=== PATIENT | male | born 1945 | race American Indian/Alaskan Native ===

== ENCOUNTER 2023-11-13 15:07 | Inpatient (IN) | payer OTHER, SELFPAY ==
[2023-11-13] VITALS (34 sets, daily range): BP systolic 71–128; BP diastolic 46–90; BMI 22.9
[2023-11-13 08:28] LABS: % Basophils 0.8 % (0-2); % Eosinophils 4.1 % (0-6); % Immature Granulocytes 0.3 % (0-0.5); % Lymphocytes 26.9 % (20.5-51.1); % Monocytes 9.9 % (1.7-9.3); Absolute Basophils 0.1 10^3/uL (0-0.2); Absolute Eosinophils 0.3 10^3/uL (0-0.7); Absolute Monocytes 0.8 10^3/uL (0.1-0.6); Absolute Neutrophils 4.4 10^3/uL (1.4-6.5); Hematocrit 38.6 % (39.0-52.0); Hemoglobin 13.2 g/dL (13.0-18.0); Mean Corp Hgb Conc. 34.2 g/dL (33.0-37.0); Mean Corpuscular Hgb 30.8 pg (27.0-31.0); Mean Corpuscular Volume 90.2 fL (80.0-94.0); Mean Platelet Volume 9.9 fL (7.4-10.4); Nucleated Red Blood Cells % 0 % (-); Platelet Count 183 10^3/uL (130-400); Red Blood Cell Count 4.28 10^6/uL (4.70-6.10); Red Cell Dist. Width 12.5 % (11.5-14.5); White Blood Cell Count 7.6 10^3/uL (4.8-10.8)
--- NOTE | 2023-11-13 08:40 | ED.GENMED ---
History of Present Illness
<Vega Pedraza MD - Last Filed: 11/13/23 21:09>
General
Chief Complaint: Headache
Source: patient
Exam Limitations: none
Time Seen by Provider: 11/13/23 08:35
Nursing documentation reviewed up to this point in time: agreed with
History of Present Illness
History of Present Illness:
Patient who recently moved to [facility] from [place], with history of hypertension and diabetes, presents to ED secondary to sudden onset of posterior headache with dizziness, on approximately 1 hour after waking up this morning denies blurred
vision. Denies loss of sensation or weakness. Denies difficulty with speech. Denies difficulty with ambulation. Denies recent illness. Patient states that he was at his baseline health when he went to sleep last night. And when he woke up at
5:30 AM, patient had no complaints. Denies previous history of similar symptoms. Denies recent change in medications or diet. 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
ago. In addition, he has been told that he sometimes has 'skipped heart beats'. However, patient is not familiar with the term atrial fibrillation. Patient currently takes 81 mg aspirin daily.
<ELSIE Laura - Last Filed: >
Travel History
Have you had any contact with someone who has COVID-19?: No
Do you have any symptoms of coronavirus? Fever > 100 degrees, chills, cough, shortness of breath, sore throat, loss of taste or smell, muscle aches, or headache?: No
Review of Systems
<Vega Pedraza MD - Last Filed: 11/13/23 21:09>
Review of Systems
Allergies reviewed?: Yes
All Other Systems: ROS reviewed and negative except as documented in HPI and ROS
Constitutional: Reports no symptoms; Denies fever
EENT: Reports no symptoms
Respiratory: Reports no symptoms; Denies trouble breathing
Cardiac: Reports no symptoms; Denies chest pain, palpitations or syncope
ABD/GI: Reports no symptoms; Denies nausea
Musculoskeletal: Reports no symptoms
Skin: Reports no symptoms
Neurological: Reports dizzy and headache; Denies weakness
Phy Exam
<Vega ePdraza MD - Last Filed: 11/13/23 21:09>
Physical Exam
Physical Exam:
Physical Exam
General: no apparent distress, not acutely ill. afebrile.
Head: nc/at. eomi. perrla
Neck: supple. no meningeal signs.
Heart: irregularly irregular, tachycardic, no murmur. equal radial pulses.
Lungs: no acute respiratory distress. clear bilaterally
Abdomen: normal bowel sounds. not tender.
Neuro: alert and oriented. no focal neurological deficits
Skin: no rash
Psychiatric: well kept. interactive and cooperative
Extremities: no edema. no calf tenderness.
Course
<Vega Pedraza MD - Last Filed: 11/13/23 21:09>
Orders/Labs/Results
Orders:
Orders
11/13/23 07:59
Electrocardiogram (*1) Urgent
Reason for Study: Fatigue / Weakness
EKG- Treatment ONCE
11/13/23 08:12
Complete Blood Count/With Diff Urgent
Comprehensive Metabolic Panel Urgent
Free T4 Urgent
Magnesium Urgent
TSH Reflex To Free T4 Urgent
11/13/23 08:54
Add On- LAB Urgent
Tests Added?: TSH to reflex kiara T4, magnesium
11/13/23 08:55
CT Head W/o Iv Contrast Urgent
Comment:
Reason For Exam: headache w dizziness
11/13/23 08:56
0.9% Sodium Chloride 500 ml [Nss] 500 ml IV BOLUS
11/13/23 09:03
Troponin I Urgent
11/13/23 09:32
Diltiazem HCl [Cardizem] 5 mg IV NOW STA
11/13/23 10:02
0.9% Sodium Chloride 1000 ml [Nss] 1,000 ml IV BOLUS
Diltiazem HCl [Cardizem] 5 mg IV NOW STA
11/13/23 10:44
EKG [Electrocardiogram (*1)] Urgent
Reason for Study: Atrial Fibrillation
EKG- Treatment ONCE
11/13/23 13:12
Troponin I Urgent
11/13/23 14:01
CARDIOLOGY CONSULT Urgent
Consulting Provider: Gregg Min
Was physician already notified: Yes
Reason for consult: abnormal EKG and troponin
11/13/23 14:43
Echo 2D MMode Color/Doppler Routine
Reason for Study: New Afib, elevated troponin
11/13/23 14:44
Heparin Protocol- PTT Orders As Directed
PTT per Heparin protocol: -Obtain CBC and baseline PTT - if not already collected.
-Obtain PTT 6 hours from start of infusion. Then, every 6 hours until 2 consecutive
PTT's are therapeutic. Then, PTT Daily.
-With each rate change, obtain PTT every 6 hours until 2 consecutive PTT's are
therapeutic. Then, PTT Daily.
Notify MD As Directed
Notify physician if: PTT is greater than or equal to 200.
11/13/23 14:45
Heparin 51075 Units/250 ml 25,000 units in 250 ml IV PER PROTOCOL
Weight to be used for heparin protocol in kilograms (kg):: 68.2
Protocol:: Cardiac Tx/Acute Coronary
PTT Goal Range to be used:: PTT 73 to 111 seconds
Order type:: Initial
INITIAL Infusion Dose (UNITS/KG/hr) & then follow protocol:: 12 units/kg/hr
Infusion Dose in UNITS/hr & then follow protocol (UNITS/hr):: 800
INFUSION RATE in mL/hr & then follow protocol (mL/hr):: 8
PTT less than or equal to 64 seconds:: Increase rate by 200 units/hr (+ 2 mL/hr)
PTT 64.1 to 72.9 seconds:: Increase rate by 100 units/hr (+ 1 mL/hr)
PTT 73 to 111 seconds:: Target Range. No change in rate.
PTT 111.1 to 130.9 seconds:: Decrease rate by 100 units/hr (- 1 mL/hr)
PTT 131 to 199.9 seconds:: HOLD for 1 hr. Then decrease rate by 200 units/hr (- 2 mL/hr)
PTT greater than or equal to 200 seconds:: HOLD for 2 hrs & Notify Provider. Then decrease by 200 units/hr (-
2 mL/hr)
Lab follow-up:: Each change, PTT q6h until 2 consecutive are therapeutic. Then PTT
daily.
11/13/23 14:51
Admit/Transfer Patient As Directed
Co-Sign Provider:
Level of Care: Inpatient admission
Assign to:: Telemetry
Physician / Group: Kyaw
Diagnosis: A-fib, Elevated Troponin
Reason for Telemetry: Arrhythmia
Date to Stop Telemetry: 11/16/23
Time to Stop Telemetry: 11:00
Reason for Hospitalization: heparin drip, cardiac cath
Expected length of stay greater than two midnights?: Yes
ELOS- Estimated Length of Stay in days: 3
I certify the patient meets the requirements for IP care: Yes
11/13/23 14:54
Code Status As Directed
Resuscitation Status: Full Code
11/13/23 14:55
Aspirin Chewable [Low Strength Aspirin] 324 mg PO NOW STA
11/13/23 Dinner
2000 calorie (17 carb) Diabetic
At Your Request: Limited, Apprenticeship Representative Required
Does patient need a safe tray?: No
Flush (0.9% Sodium Chloride) [Flush (Nss)] See Dose Instructions IV PER PROTOCOL
11/13/23 15:07
Complete Blood Count/No Diff Urgent
Comment: Obtain baseline before beginning heparin infusion if not already collected
PTT Urgent
Comment: Obtain baseline before beginning heparin infusion if not already collected
11/13/23 18:03
Acetaminophen [Tylenol] 650 mg PO Q4HPRN PRN
Dextrose 50%-Water [Dextrose 50% Syringe] 12.5 grams IV [id number] PRN
Glucagon [GlucaGen] 1 mg IM PRN PRN
Insulin Aspart Corrective Low [Novolog Flexpen-Low Resistance] See Protocol SC AC
11/13/23 18:03
CARDIOLOGY CONSULT Routine
Consulting Provider: Gregg Min
Was physician already notified: Yes
Activity As Directed
Activity Level: Out of Bed-Early Mobility
With Assistance
Bedside Glucose Monitoring As Directed
Frequency: AC&HS
Additional Instructions:: Change to q6h if pt on TPN, tube feeding or not eating
I&O [Intake/ Output] As Directed
Frequency: q12h
Vital Signs As Directed
Frequency: Per unit guidelines
Weight As Directed
Frequency: Daily
11/13/23 19:52
Troponin I Q6H
11/14/23 01:00
Troponin I Q6H
11/14/23 Breakfast
NPO
Allow oral meds: Yes
Allow clear liquids: 4hrs prior to procedure
Comment: may have unrestricted clear liquid up to 4 hrs prior to scheduled procedure
Basic Metabolic Panel IN AM
Cardiovascular Evaluation IN AM
Complete Blood Count/No Diff IN AM
Hgba1c [Glycohemoglobin (HgbA1c)] IN AM
Magnesium IN AM
11/14/23 07:00
Troponin I Q6H
11/14/23 08:00
Aspirin Chewable [Low Strength Aspirin] 81 mg PO DAILY
Atorvastatin [Lipitor] 10 mg PO DAILY
Metoprolol Xl [Toprol Xl] 12.5 mg PO DAILY
Olmesartan Medoxomil [Benicar] 20 mg PO DAILY
11/15/23 06:00
Complete Blood Count/No Diff Q2D
Comment: Notify MD if platelet count is <130,000 or decreases by 50% from baseline
11/16/23 11:00
DC Protocol for Telemetry ONCE
11/17/23 06:00
Complete Blood Count/No Diff Q2D
Comment: Notify MD if platelet count is <130,000 or decreases by 50% from baseline
11/19/23 06:00
Complete Blood Count/No Diff Q2D
Comment: Notify MD if platelet count is <130,000 or decreases by 50% from baseline
11/21/23 06:00
Complete Blood Count/No Diff Q2D
Comment: Notify MD if platelet count is <130,000 or decreases by 50% from baseline
11/23/23 06:00
Complete Blood Count/No Diff Q2D
Comment: Notify MD if platelet count is <130,000 or decreases by 50% from baseline
11/25/23 06:00
Complete Blood Count/No Diff Q2D
Comment: Notify MD if platelet count is <130,000 or decreases by 50% from baseline
11/27/23 06:00
Complete Blood Count/No Diff Q2D
Comment: Notify MD if platelet count is <130,000 or decreases by 50% from baseline
11/29/23 06:00
Complete Blood Count/No Diff Q2D
Comment: Notify MD if platelet count is <130,000 or decreases by 50% from baseline
Abnormal Lab Results
11/13/23 11/13/23 11/13/23
08:12 08:49 13:12
RBC 4.28 L 10^6/uL
(4.70-6.10)
Hgb
Hct 38.6 L %
(39.0-52.0)
MCH
MPV
Absolute Monos (auto) 0.8 H 10^3/uL
(0.1-0.6)
Monocytes % 9.9 H %
(1.7-9.3)
Glucose 134 H mg/dl
(70-99)
Troponin I 2.050 H* D ng/ml
TSH (Reflex) 5.58 H uIU/ml
(0.47-4.68)
POC Glucose 133 H mg/dl
(70-99)
11/13/23
15:07
RBC 3.79 L 10^6/uL
(4.70-6.10)
Hgb 11.9 L g/dL
(13.0-18.0)
Hct 35.0 L %
(39.0-52.0)
MCH 31.4 H pg
(27.0-31.0)
MPV 10.9 H fL
(7.4-10.4)
Absolute Monos (auto)
Monocytes %
Glucose
Troponin I
TSH (Reflex)
POC Glucose
11/13/23 15:07
11/13/23 08:12
Vital Signs
Initial and Last Documented VS:
Initial Vital Signs
Temp Pulse Resp BP Pulse Ox
98.3 F 79 16 100/63 98
11/13/23 07:57 11/13/23 07:57 11/13/23 07:57 11/13/23 07:57 11/13/23 07:57
Last Documented Vital Signs
Temp Pulse Resp BP Pulse Ox
98.3 F 65 27 118/70 98
11/13/23 07:57 11/13/23 17:15 11/13/23 17:15 11/13/23 17:15 11/13/23 16:30
<ELSIE Laura - Last Filed: >
Orders/Labs/Results
Orders:
Orders
11/13/23 07:59
Electrocardiogram (*1) Urgent
Reason for Study: Fatigue / Weakness
EKG- Treatment ONCE
11/13/23 08:12
Complete Blood Count/With Diff Urgent
Comprehensive Metabolic Panel Urgent
Free T4 Urgent
Magnesium Urgent
TSH Reflex To Free T4 Urgent
11/13/23 08:54
Add On- LAB Urgent
Tests Added?: TSH to reflex kiara T4, magnesium
11/13/23 08:55
CT Head W/o Iv Contrast Urgent
Comment:
Reason For Exam: headache w dizziness
11/13/23 08:56
0.9% Sodium Chloride 500 ml [Nss] 500 ml IV BOLUS
11/13/23 09:03
Troponin I Urgent
11/13/23 09:32
Diltiazem HCl [Cardizem] 5 mg IV NOW STA
11/13/23 10:02
0.9% Sodium Chloride 1000 ml [Nss] 1,000 ml IV BOLUS
Diltiazem HCl [Cardizem] 5 mg IV NOW STA
11/13/23 10:44
EKG [Electrocardiogram (*1)] Urgent
Reason for Study: Atrial Fibrillation
EKG- Treatment ONCE
11/13/23 13:12
Troponin I Urgent
11/13/23 14:01
CARDIOLOGY CONSULT Urgent
Consulting Provider: Gregg Min
Was physician already notified: Yes
Reason for consult: abnormal EKG and troponin
11/13/23 14:43
Echo 2D MMode Color/Doppler Routine
Reason for Study: New Afib, elevated troponin
11/13/23 14:44
Heparin Protocol- PTT Orders As Directed
PTT per Heparin protocol: -Obtain CBC and baseline PTT - if not already collected.
-Obtain PTT 6 hours from start of infusion. Then, every 6 hours until 2 consecutive
PTT's are therapeutic. Then, PTT Daily.
-With each rate change, obtain PTT every 6 hours until 2 consecutive PTT's are
therapeutic. Then, PTT Daily.
Notify MD As Directed
Notify physician if: PTT is greater than or equal to 200.
11/13/23 14:45
Heparin 55976 Units/250 ml 25,000 units in 250 ml IV PER PROTOCOL
Weight to be used for heparin protocol in kilograms (kg):: 68.2
Protocol:: Cardiac Tx/Acute Coronary
PTT Goal Range to be used:: PTT 73 to 111 seconds
Order type:: Initial
INITIAL Infusion Dose (UNITS/KG/hr) & then follow protocol:: 12 units/kg/hr
Infusion Dose in UNITS/hr & then follow protocol (UNITS/hr):: 800
INFUSION RATE in mL/hr & then follow protocol (mL/hr):: 8
PTT less than or equal to 64 seconds:: Increase rate by 200 units/hr (+ 2 mL/hr)
PTT 64.1 to 72.9 seconds:: Increase rate by 100 units/hr (+ 1 mL/hr)
PTT 73 to 111 seconds:: Target Range. No change in rate.
PTT 111.1 to 130.9 seconds:: Decrease rate by 100 units/hr (- 1 mL/hr)
PTT 131 to 199.9 seconds:: HOLD for 1 hr. Then decrease rate by 200 units/hr (- 2 mL/hr)
PTT greater than or equal to 200 seconds:: HOLD for 2 hrs & Notify Provider. Then decrease by 200 units/hr (-
2 mL/hr)
Lab follow-up:: Each change, PTT q6h until 2 consecutive are therapeutic. Then PTT
daily.
11/13/23 14:51
Admit/Transfer Patient As Directed
Co-Sign Provider:
Level of Care: Inpatient admission
Assign to:: Telemetry
Physician / Group: Kyaw
Diagnosis: A-fib, Elevated Troponin
Reason for Telemetry: Arrhythmia
Date to Stop Telemetry: 11/16/23
Time to Stop Telemetry: 11:00
Reason for Hospitalization: heparin drip, cardiac cath
Expected length of stay greater than two midnights?: Yes
ELOS- Estimated Length of Stay in days: 3
I certify the patient meets the requirements for IP care: Yes
11/13/23 14:54
Code Status As Directed
Resuscitation Status: Full Code
11/13/23 14:55
Aspirin Chewable [Low Strength Aspirin] 324 mg PO NOW STA
11/13/23 Dinner
2000 calorie (17 carb) Diabetic
At Your Request: Limited, Apprenticeship Representative Required
Does patient need a safe tray?: No
Flush (0.9% Sodium Chloride) [Flush (Nss)] See Dose Instructions IV PER PROTOCOL
11/13/23 15:07
Complete Blood Count/No Diff Urgent
Comment: Obtain baseline before beginning heparin infusion if not already collected
PTT Urgent
Comment: Obtain baseline before beginning heparin infusion if not already collected
11/13/23 18:03
Acetaminophen [Tylenol] 650 mg PO Q4HPRN PRN
Dextrose 50%-Water [Dextrose 50% Syringe] 12.5 grams IV [id number] PRN
Glucagon [GlucaGen] 1 mg IM PRN PRN
Insulin Aspart Corrective Low [Novolog Flexpen-Low Resistance] See Protocol SC AC
11/13/23 18:03
CARDIOLOGY CONSULT Routine
Consulting Provider: Gregg Min
Was physician already notified: Yes
Activity As Directed
Activity Level: Out of Bed-Early Mobility
With Assistance
Bedside Glucose Monitoring As Directed
Frequency: AC&HS
Additional Instructions:: Change to q6h if pt on TPN, tube feeding or not eating
I&O [Intake/ Output] As Directed
Frequency: q12h
Vital Signs As Directed
Frequency: Per unit guidelines
Weight As Directed
Frequency: Daily
11/13/23 19:52
Troponin I Q6H
11/14/23 01:00
Troponin I Q6H
11/14/23 Breakfast
NPO
Allow oral meds: Yes
Allow clear liquids: 4hrs prior to procedure
Comment: may have unrestricted clear liquid up to 4 hrs prior to scheduled procedure
Basic Metabolic Panel IN AM
Cardiovascular Evaluation IN AM
Complete Blood Count/No Diff IN AM
Hgba1c [Glycohemoglobin (HgbA1c)] IN AM
Magnesium IN AM
11/14/23 07:00
Troponin I Q6H
11/14/23 08:00
Aspirin Chewable [Low Strength Aspirin] 81 mg PO DAILY
Atorvastatin [Lipitor] 10 mg PO DAILY
Metoprolol Xl [Toprol Xl] 12.5 mg PO DAILY
Olmesartan Medoxomil [Benicar] 20 mg PO DAILY
11/15/23 06:00
Complete Blood Count/No Diff Q2D
Comment: Notify MD if platelet count is <130,000 or decreases by 50% from baseline
11/16/23 11:00
DC Protocol for Telemetry ONCE
11/17/23 06:00
Complete Blood Count/No Diff Q2D
Comment: Notify MD if platelet count is <130,000 or decreases by 50% from baseline
11/19/23 06:00
Complete Blood Count/No Diff Q2D
Comment: Notify MD if platelet count is <130,000 or decreases by 50% from baseline
11/21/23 06:00
Complete Blood Count/No Diff Q2D
Comment: Notify MD if platelet count is <130,000 or decreases by 50% from baseline
11/23/23 06:00
Complete Blood Count/No Diff Q2D
Comment: Notify MD if platelet count is <130,000 or decreases by 50% from baseline
11/25/23 06:00
Complete Blood Count/No Diff Q2D
Comment: Notify MD if platelet count is <130,000 or decreases by 50% from baseline
11/27/23 06:00
Complete Blood Count/No Diff Q2D
Comment: Notify MD if platelet count is <130,000 or decreases by 50% from baseline
11/29/23 06:00
Complete Blood Count/No Diff Q2D
Comment: Notify MD if platelet count is <130,000 or decreases by 50% from baseline
Abnormal Lab Results
11/13/23 11/13/23 11/13/23
08:12 08:49 13:12
RBC 4.28 L 10^6/uL
(4.70-6.10)
Hgb
Hct 38.6 L %
(39.0-52.0)
MCH
MPV
Absolute Monos (auto) 0.8 H 10^3/uL
(0.1-0.6)
Monocytes % 9.9 H %
(1.7-9.3)
Glucose 134 H mg/dl
(70-99)
Troponin I 2.050 H* D ng/ml
TSH (Reflex) 5.58 H uIU/ml
(0.47-4.68)
POC Glucose 133 H mg/dl
(70-99)
11/13/23
15:07
RBC 3.79 L 10^6/uL
(4.70-6.10)
Hgb 11.9 L g/dL
(13.0-18.0)
Hct 35.0 L %
(39.0-52.0)
MCH 31.4 H pg
(27.0-31.0)
MPV 10.9 H fL
(7.4-10.4)
Absolute Monos (auto)
Monocytes %
Glucose
Troponin I
TSH (Reflex)
POC Glucose
11/13/23 15:07
11/13/23 08:12
Vital Signs
Initial and Last Documented VS:
Initial Vital Signs
Temp Pulse Resp BP Pulse Ox
98.3 F 79 16 100/63 98
11/13/23 07:57 11/13/23 07:57 11/13/23 07:57 11/13/23 07:57 11/13/23 07:57
Last Documented Vital Signs
Temp Pulse Resp BP Pulse Ox
98.3 F 65 27 118/70 98
11/13/23 07:57 11/13/23 17:15 11/13/23 17:15 11/13/23 17:15 11/13/23 16:30
<Vega Pedraza MD - Last Filed: 11/13/23 21:09>
MDM/Problems Addressed
MDM/Problems Addressed:
Pt presents hypotensive with rapid HR. Pt given IVF bolus followed by Cardizem 5mg x 2 given, with spontaneous conversion to NSR, confirmed by repeat EKG. Discussed with Dr.DL Min (cardiology). Recommends repeat trop. Will come and evaluate the
patient.
Repeat trop: 2.05. Discussed with (cardiology), requesting hospitalist admission for further evaluation and treatment.
Critical care statement: A total of 40 minutes of critical care time was provided for this patient. This includes management of unstable vital signs, evaluation of the patient at bedside, reviewing the patient's pertinent medical records, discussion
with consultants, review of old EKGs and review of pertinent medical records. This time with separate from time utilized to perform the aforementioned documented procedures
<Vega Pedraza MD - Last Filed: 11/13/23 21:09>
*EKG
Interpreted by ED Provider?: Yes
EKG Intrepretation Date: 11/13/23
Heart Rate: 147
Rate: tachycardiac
Rhythm: a-fib
Pepin: left axis deviation
Interval: normal interval
QRS Pattern: normal QRS
ED Attending Note
<ELSIE Laura - Last Filed: >
-
Portions of this chart may have been created with voice recognition software.� Occasional wrong word or��sound alike� substitutions may have occurred due to the inherent limitations of voice recognition software.
Discharge Plan
Departure
Patient Disposition: Admit
Date of Disposition: 11/13/23
Time of Disposition: 14:15
Admit to: IVU
Presentation/result/management discussed w/ accepting MD/DO: Hospitalist
Discharge Problem:
Atrial fibrillation, rapid, Abnormal EKG, Abnormal cardiac enzyme level
Interventions
Interventions:
*Risk Screen - Suicide Last Done: 11/13/23 09:36
*General Assessment Last Done: 11/13/23 09:36
ED- Fall Risk Assessment Last Done: 11/13/23 09:38
*ED COVID-19 Vaccine History Last Done: 11/13/23 07:57
ED- Neurological Assessment Last Done: 11/13/23 09:38
[2023-11-13 08:42] LABS: ALT (SGPT) 14 U/L (0-50); AST (SGOT) 24 U/L (17-59); Albumin 4.1 g/dl (3.5-5.0); Alkaline Phosphatase 64 U/L (38-126); Blood Urea Nitrogen 18 mg/dl (9-20); Carbon Dioxide 28 mmol/L (22-30); Chloride 103 mmol/L (98-107); Estimated Creatinine Clearance 61 ml/min; Glucose 134 mg/dl (70-99); Potassium 4.6 mmol/L (3.5-5.1); Sodium 136 mmol/L (135-145); Total Bilirubin 1.1 mg/dl (0.2-1.3); Total Protein 7.2 g/dl (6.3-8.2); eGFR > 60.00
[2023-11-13 08:50] LABS: Glucose - Point of Care 133 mg/dl (70-99)
[2023-11-13] MEDS: NSS 500 IV (09:04)
[2023-11-13 09:19] LABS: Magnesium 2.1 mg/dl (1.6-2.3)
[2023-11-13 09:38] LABS: Troponin I 0.022 ng/ml
[2023-11-13] MEDS: CARDIZEM 5 MG IV ×2 (09:54→10:04)
[2023-11-13] MEDS: NSS 1000 IV (10:05)
[2023-11-13 10:19] LABS: TSH Reflex To Free T4 5.58 uIU/ml (0.47-4.68)
[2023-11-13 10:55] LABS: Free T4 1.15 ng/dl (0.78-2.19)
--- NOTE | 2023-11-13 14:24 | PHANOTE ---
med rec dima-patient has his own meds from [place] with him
--- NOTE | 2023-11-13 14:31 | CON.CAR ---
Addendum entered and electronically signed by Gregg Min MD 11/13/23 16:03:
Patient is a 78-year-old man recently from [place], has hypertension, diabetes and presented with headache and dizziness upon awakening this morning, found to be in atrial fibrillation with rapid ventricular response and converted to sinus rhythm
after administration of IV diltiazem.
PMH: Hypertension, diabetes, hypercholesterolemia
Allergies none
Prescription medications:
ECG #1: Atrial fibrillation rapid ventricular response left anterior fascicular block, LVH, lateral ischemia/injury
ECG #2: Sinus rhythm, left anterior fascicular block, inferolateral T wave inversions, LVH, T wave inversions have replaced lateral ST segment depression
Hemoglobin 13.2, glucose 134 CMP normal, troponin 2.050, had been 0.022, free T4 is normal, TSH 5.[address] mild atrophy
Chest x-ray: Pending
Impression:
Presented with headache, dizziness
Paroxysmal atrial fibrillation w/ RVR, converted to normal sinus rhythm with diltiazem
Elevated troponin
NSVT
HTN
DM2
HLD
Plan:
He presents with headache but upon presentation has paroxysmal atrial fibrillation which broke with IV diltiazem. Subsequent to this he has had run of nonsustained ventricular tachycardia/AIVR, and his troponin has risen to 2. He had EKG
depression laterally with his initial electrocardiogram and now has T wave inversions.
Based on this, he presumably has significant underlying obstructive CAD. In my opinion, best strategy is to anticoagulate with heparin, administer beta-sweta, treat with aspirin, and refer to cardiac catheterization. Will also check
echocardiogram.
Will need to uptitrate atorvastatin.
Management of diabetes per primary service.
Original Note:
Consultation
Consultation Request
Date/Time Consultation Requested: 11/13/2023
Date/Time Consultation Performed: 11/13/2023
Requesting Provider: Dr. Pedraza
Performing Provider: Dr. JOSIANE Min
Reason for Consultation: Elevated trop, new Afib
Medical History
-
History of Present Illness:
HPI: Patient is a 78 year old male with PMH of hypertension, hyperlipidemia, and DM2 who [facility] of [facility] and dizziness. He has been in his normal state of health, but shortly after he woke up this morning, he started to
feel off balance and noticed a headache which is atypical for him. He recently moved from [place] and is living w/ family. While in [place], he followed w/ cardiology, however denies history of coronary disease or atrial fibrillation. He reportedly has
been told that he has occasional 'skipped beats,' but further details are unclear. He has not yet established cardiology care locally. On arrival to ER, he was noted to be in rapid atrial fibrillation w/ associated hypotension. He spontaneously
converted to SR after being given a bolus of IV cardizem. He remains in SR currently, however on review of telemetry did have a 12 beat run of NSVT. With this, he was asymptomatic. Labwork returned with initial troponin of 0.022, which trended up to
2.05 on repeat. He remains chest pain free currently and has no acute complaints. Head CT was without abnormality. Cardiology consulted for evaluation.
PMH:
HTN
DM2
HLD
Past Medical History
Past Medical History: Other (In HPI)
Social History
Alcohol: None
Drug: None
Personal:
Living: With Family
Employment: Retired
Family History
Family History: Reviewed & Not Pertinent
Allergies / Home Medications
Allergy/AdvReac Type Severity Reaction Status Date / Time
No Known Allergies Allergy Verified 11/13/23 07:59
�Medication �Instructions �Recorded �Confirmed �Type
aspirin 81 mg tablet,delayed 75 mg PO DAILY 11/13/23 11/13/23 History
release
atorvastatin 10 mg tablet 10 mg PO DAILY 11/13/23 11/13/23 History
levocarnitine 500 mg tablet 500 mg PO DAILY 11/13/23 11/13/23 History
metformin 500 mg tablet 125 mg PO BID 11/13/23 11/13/23 History
olmesartan 20 mg tablet 20 mg PO DAILY 11/13/23 11/13/23 History
Review of Systems
-
History Source: Patient and Family
All other systems: Negative unless noted
Physical Exam
Vital Signs
Temp Pulse Resp BP Pulse Ox
98.3 F 57 18 105/62 94
11/13/23 07:57 11/13/23 12:30 11/13/23 12:30 11/13/23 12:30 11/13/23 11:36
Lab Results
11/13/23 08:12
11/13/23 08:12
Troponin I 2.050 ng/ml H* D 11/13/23 13:12
Physical Exam
General: Well Developed, Well Nourished and No Apparent Distress
HEENT: Normocephalic, Anicteric and Moist Mucous Membranes
Respiratory: Clear and Non Labored Respirations
Cardiac: S1/S2 and Regular Rhythm
Musculoskeletal: No Clubbing, No Cyanosis and No Edema
Neuro: AO x 3 and Nonfocal/Grossly Intact
Psych: Calm
Impression / Plan
-
Calender Tender: None prior to admission, initially seen by Dr. JOSIANE Min
Impression:
Presented with headache, dizziness
Paroxysmal atrial fibrillation w/ RVR
Elevated troponin
NSVT
HTN
DM2
HLD
Echo 11/13/2023: Study pending
Plan:
-Presented w/ headache, dizziness. In rapid afib on arrival which reportedly is a new diagnosis.
-Spontaneously converted to SR after IV cardizem given in ER. Remains in SR on review of telemetry. HR stable
-Elevated troponin noted, trending up to 2.05. Chest pain free. Continue to trend to peak.
-Initial EKG rapid Afib, w/ repeat EKG SR with T wave inversions laterally.
-Check echo.
-Start IV heparin.
-On aspirin 75mg daily. Will load w/ aspirin and continue aspirin 81mg daily.
-12 beat run of NSVT noted on telemetry. Continue to follow. Will try starting low dose BB, however will need to monitor BP closely.
-With new afib, elevated troponin, and NSVT, will need LHC. Plan for cath in AM. NPO after midnight.
-Was hypotensive initially w/ BP 70s/50s on arrival to ER. Improved now that he is in SR, with most recent BP 105/62. Hold olmesartan for now.
-Continue lipitor 10mg daily. Check CVE in AM.
-Check Hgb A1c. Continue metformin.
-Head CT without acute abnormality. Headache has resolved.
HPI: Patient is a 78 year old male with PMH of hypertension, hyperlipidemia, and DM2 who [facility] evaluation of headache and dizziness. He has been in his normal state of health, but shortly after he woke up this morning, he started to
feel off balance and noticed a headache which is atypical for him. He recently moved from [place] and is living w/ family. While in [place], he followed w/ cardiology, however denies history of coronary disease or atrial fibrillation. He reportedly has
been told that he has occasional 'skipped beats,' but further details are unclear. He has not yet established cardiology care locally. On arrival to ER, he was noted to be in rapid atrial fibrillation w/ associated hypotension. He spontaneously
converted to SR after being given a bolus of IV cardizem. He remains in SR currently, however on review of telemetry did have a 12 beat run of NSVT. With this, he was asymptomatic. Labwork returned with initial troponin of 0.022, which trended up to
2.05 on repeat. He remains chest pain free currently and has no acute complaints. Head CT was without abnormality. Cardiology consulted for evaluation.
Data Reviewed
-
EKG: Tracing Personally Visualized and interpreted
CT Scan: Report Reviewed by me
Labs: Labs Reviewed by me
--- NOTE | 2023-11-13 15:00 | HPS.HSE ---
Addendum entered and electronically signed by Miguel Ángel Card MD 11/13/23 16:29:
I saw and examined the patient.
The FOOD PORTER or PA's note was reviewed and I agree with the note.
Comment: 38-year-old male with past medical history of hypertension, hyperlipidemia, diabetes coming in for generalized weakness, body aches and headache. Head CT unremarkable, headache resolved upon evaluation. Found to have A-fib with RVR,
received IV Cardizem with spontaneous conversion back to sinus rhythm. Also noted to have T wave inversions, replacing lateral ST segment depression along with troponin of 2. Due to nonspecific symptoms as well as elevated troponin and arrhythmia,
patient will plan for cardiac cath tomorrow. Follow-up echo, start heparin drip, aspirin 81 mg. Heart rate under control. Hypertensive in the ED, holding olmesartan for now, will monitor for initiating AV humberto blockade. Continue statin. Lipid
and hemoglobin A1c panel. Hold metformin, sliding scale.
Original Note:
Family Physician
-
Family Physician: * NONE
Chief Complaint
-
Lightheadedness
History of Present Illness
This is a 78 year old male with past medical history of hypertension, hyperlipidemia and diabetes who presents to the emergency department with generalized weakness/body aches and headache. Additional history obtained by patient's family. Family
reports the patient was in his usual state of health yesterday. Today upon waking he was noted to feel unwell thus prompting them to bring him to the emergency department. Upon arrival patient was found to have atrial fibrillation with rapid
ventricular response. Patient received IV Cardizem in the emergency department and spontaneous converted back to sinus rhythm. Family reports patient feels back at his baseline after receiving Cardizem and returning to regular heart rhythm. There
is no prior history atrial fibrillation or coronary artery disease.
Medical History
Past Medical History
Past Medical History: Reports Other
Additional Past Medical History:
Essential Hypertension
Hyperlipidemia
Diabetes Mellitus
Past Surgical History: Reports Other
Additional Past Surgical History:
Spine Surgery
Social History
Tobacco: Non-smoker
Alcohol: None
Living: With Family
Family History
Family History: Not pertinent
Allergies / Home Medications
Allergies reflects when Allergies were last updated in [facility].
Home Medications with original date entered in [facility]
Allergy/Medication List:
Allergies
Allergy/AdvReac Type Severity Reaction Status Date / Time
No Known Allergies Allergy Verified 11/13/23 07:59
Home Medications
aspirin 81 mg tablet,delayed release 75 mg PO DAILY 11/13/23
atorvastatin 10 mg tablet 10 mg PO DAILY 11/13/23
levocarnitine 500 mg tablet 500 mg PO DAILY 11/13/23
metformin 500 mg tablet 125 mg PO BID 11/13/23
olmesartan 20 mg tablet 20 mg PO DAILY 11/13/23
Review of Systems
-
Unable to obtain full review of systems at this time due to: Language Barrier
A 12 point ROS was completed and negative except as noted: No
Physical Exam
Vital Signs
Vital Signs
Temp Pulse Resp BP Pulse Ox
98.3 F 57 18 105/62 94
11/13/23 07:57 11/13/23 12:30 11/13/23 12:30 11/13/23 12:30 11/13/23 11:36
Physical Exam
General: Well Developed, Well Nourished and No Apparent Distress
HEENT: Anicteric and Moist mucous membranes
Respiratory: Clear and Non Labored Respirations
Cardiac: S1/S2 and Regular Rhythm; No Murmur
GI: Soft and Non Tender
Rectal: Deferred by Provider
Musculoskeletal: No Clubbing, No Cyanosis and No Edema
Skin: Warm and Dry
Neuro: Awake, Alert and Nonfocal/grossly intact
Psych: Calm
Laboratory Results
-
11/13/23 08:12
Laboratory Results
Total Bilirubin 1.1 mg/dl (0.2-1.3) 11/13/23 08:12
AST 24 U/L (17-59) 11/13/23 08:12
ALT 14 U/L (0-50) 11/13/23 08:12
Alkaline Phosphatase 64 U/L (38-126) 11/13/23 08:12
Troponin I 2.050 ng/ml H* D 11/13/23 13:12
Data Reviewed
-
Medical Tests (Nuc Med, Echo, EKG etc): Report Reviewed by me (ECGs reviewed )
Lab Data: Labs Reviewed by me
Impression/Plan
-
Paroxysmal Atrial Fibrillation with Rapid Ventricular Response, new diagnosis
Non-Sustained Ventricular Tachycardia
Elevated Troponin
-Patient spontaneously converted to sinus rhythm at IV Cardizem given in the ED
-Consult Cardiology
-Continue heparin drip
-Continue Toprol XL
-NPO after midnight for cardiac cath in AM
Essential Hypertension
-Continue olmesartan with hold parameters
Hyperlipidemia
-Check Lipid Panel
-Continue Lipitor
Diabetes Mellitus, Type II
-Check HgbA1c
-Hold metformin
-Monitor sugars and continue coverage insulin
DVT proph: Heparin Drip
Code Status: Full Code
[2023-11-13] MEDS: LOW STRENGTH ASPIRIN 324 MG PO (15:19)
[2023-11-13] MEDS: HEPARIN 25000 UNITS/250 ML IV (15:22)
[2023-11-13 16:11] LABS: Hemoglobin 11.9 g/dL (13.0-18.0); Mean Corpuscular Hgb 31.4 pg (27.0-31.0); Mean Corpuscular Volume 92.3 fL (80.0-94.0); Mean Platelet Volume 10.9 fL (7.4-10.4); Platelet Count 172 10^3/uL (130-400); Red Blood Cell Count 3.79 10^6/uL (4.70-6.10); Red Cell Dist. Width 12.5 % (11.5-14.5); White Blood Cell Count 7.6 10^3/uL (4.8-10.8)
[2023-11-13 18:26] LABS: Glucose - Point of Care 255 mg/dl (70-99)
[2023-11-13] MEDS: NOVOLOG FLEXPEN-LOW RESISTANCE 3 UNITS SC (18:31)
[2023-11-13 23:39] LABS: APTT 104.7 Sec (23.4-35.0)
[2023-11-14] VITALS (11 sets, daily range): BP systolic 109–143; BP diastolic 56–81; BMI 22.9
[2023-11-14 05:27] LABS: APTT 64.1 Sec (23.4-35.0)
[2023-11-14 05:33] LABS: Hematocrit 34.4 % (39.0-52.0); Hemoglobin 11.8 g/dL (13.0-18.0); Mean Corp Hgb Conc. 34.3 g/dL (33.0-37.0); Mean Corpuscular Hgb 31.1 pg (27.0-31.0); Mean Corpuscular Volume 90.8 fL (80.0-94.0); Mean Platelet Volume 10.1 fL (7.4-10.4); Platelet Count 171 10^3/uL (130-400); Red Blood Cell Count 3.79 10^6/uL (4.70-6.10); Red Cell Dist. Width 12.4 % (11.5-14.5); White Blood Cell Count 9.2 10^3/uL (4.8-10.8)
[2023-11-14 05:46] LABS: Blood Urea Nitrogen 20 mg/dl (9-20); Calcium 8.7 mg/dl (8.4-10.2); Carbon Dioxide 26 mmol/L (22-30); Chloride 109 mmol/L (98-107); Estimated Creatinine Clearance 87 ml/min; Glucose 103 mg/dl (70-99); HDL Cholesterol 53 mg/dl; LDL Cholesterol, Calculated 84 mg/dl; Magnesium 2.1 mg/dl (1.6-2.3); Potassium 4.3 mmol/L (3.5-5.1); Sodium 141 mmol/L (135-145); Total Cholesterol 152 mg/dl (50-199); Triglyceride 77 mg/dl (10-149); Very Low Density Lipoprotein 15 mg/dl (0-30); eGFR > 60.00
[2023-11-14 08:07] LABS: Glucose - Point of Care 92 mg/dl (70-99)
[2023-11-14] MEDS: NOVOLOG FLEXPEN-LOW RESISTANCE SC ×3 (08:20→18:20)
[2023-11-14 08:56] LABS: Glycohemoglobin (HgbA1c) 6.7 % (4.0-5.6)
[2023-11-14] MEDS: TOPROL XL 12.5 MG PO (09:15)
[2023-11-14] MEDS: BENICAR 20 MG PO (09:15)
[2023-11-14] MEDS: LOW STRENGTH ASPIRIN 81 MG PO (09:15)
[2023-11-14] MEDS: LIPITOR 10 MG PO (09:15)
--- NOTE | 2023-11-14 12:18 | CM ---
CM following re: discharge planning.
Reviewed pt's chart, met with pt. Pt's spouse and pt's son at bedside.
Pt is a 78 year old male admitted with primary dx of Paroxysmal Atrial Fibrillation with Rapid Ventricular Response.
Per son, pt was born and grew up in [place], green card juares for more than 20 years, speaks only Tamil language. Pt lives with spouse and a son in a 2SH, 3 steps to enter, has 3 supportive sons. 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 No DME,
VN or SNF history.
Pt has not use any pharmacy in the past. Pt's son will give all insurance information to [facility] in [place]. Pharmacist requested a script for [facility] to check the newsome. to send a script.
PCP: Pt son stated that pt lives in an out [facility] for 20 years, did not have PCP in [facility] and now pt decided to stay in [facility] and pt's son will get a new PCP.
D/C plan: home with anticipated no needs. Son to transport at discharge.
CM will follow with discharge plan updates as hospitalization progresses
[2023-11-14 12:42] LABS: APTT 50.1 Sec (23.4-35.0)
[2023-11-14 13:41] LABS: Glucose - Point of Care 91 mg/dl (70-99)
--- NOTE | 2023-11-14 14:14 | W.PN.HOSP.TC ---
Today's Communication/Plan
-
Change statin to 40mg qhs
await LHC
Cont hep ggt, eliquis on dc
Cont Toprol, already on ARB
ASA
Assessment / Plan
Assessment / Plan
Physical Exam
General: Well Developed, Well Nourished and No Apparent Distress
HEENT: Anicteric and Moist mucous membranes
Respiratory: Clear and Non Labored Respirations
Cardiac: S1/S2 and Regular Rhythm; No Murmur
GI: Soft and Non Tender
Rectal: Deferred by Provider
Musculoskeletal: No Clubbing, No Cyanosis and No Edema
Skin: Warm and Dry
Neuro: Awake, Alert and Nonfocal/grossly intact
Psych: Calm
Non-Sustained Ventricular Tachycardia
Elevated Troponin
-Patient spontaneously converted to sinus rhythm at IV Cardizem given in the ED
-Continue heparin drip, Eliquis on dc
-Continue Toprol XL
-Awaiting LHC
-Statin titration
-ASA
Paroxysmal atrial fibrillation w/ RVR, converted to normal sinus rhythm with diltiazem
-Hep ggt
-Eliquis dosing on DC
-Toprol
Essential Hypertension
-Continue olmesartan with hold parameters
-Toprol
Hyperlipidemia
-Titrate Statin
Diabetes Mellitus, Type II
-Check HgbA1c - 6.7
-Hold metformin
-Monitor sugars and continue coverage insulin
DVT proph: Heparin Drip
Code Status: Full Code
Total time spent on today's encounter was 50 minutes which included time spent in counseling the patient/family regarding diagnosis and treatment plan as listed above, goals of care, and symptom management. Case was discussed with nursing staff,
specialists, and care coordinators/case management. All labs and imaging personally reviewed by me. Remainder the time spent in detailed review of previous records, lab data, imaging, and other medical provider documentation.
Anticipated Discharge: 24 - 48 hours
Subjective/Interval History
-
Date of Service: November 14, 2023
No acute events
Objective Data
-
Labs:
Laboratory Results
11/14/23 11/14/23 11/14/23
05:09 12:04 19:00
WBC 9.2
Hgb 11.8 L
Hct 34.4 L
Plt Count 171
APTT 64.1 H 50.1 H Pending
Sodium 141
Potassium 4.3
Chloride 109 H
Carbon Dioxide 26
BUN 20
Creatinine 0.7
Glucose 103 H
Calcium 8.7
Vital Signs:
Vital Signs
Temp Pulse Resp BP Pulse Ox
98.3 F 62 26 109/81 99
11/13/23 07:57 11/14/23 11:30 11/14/23 11:30 11/14/23 11:00 11/14/23 11:30
Review of Systems
-
History Source: Patient
All other systems: Not reviewed unless documented
Data Reviewed
-
CT Scan: Image personally visualized and interpreted and Report Reviewed by me
Labs: Labs Reviewed by me
[2023-11-14 17:48] LABS: Glucose - Point of Care 97 mg/dl (70-99)
--- NOTE | 2023-11-14 19:10 | PTCARENOTE ---
Pt sent to cath lab tech for card cath but cath was canceled. Neuro w/u ordered.
[2023-11-14] MEDS: HEPARIN 25000 UNITS/250 ML IV (21:35)
[2023-11-14 22:09] LABS: Glucose - Point of Care 109 mg/dl (70-99)
[2023-11-15] VITALS (12 sets, daily range): BP systolic 99–137; BP diastolic 53–73; BMI 22.4
[2023-11-15 03:13] LABS: Hematocrit 34.9 % (39.0-52.0); Hemoglobin 12.6 g/dL (13.0-18.0); Mean Corp Hgb Conc. 36.1 g/dL (33.0-37.0); Mean Corpuscular Hgb 31.5 pg (27.0-31.0); Mean Corpuscular Volume 87.3 fL (80.0-94.0); Mean Platelet Volume 9.8 fL (7.4-10.4); Platelet Count 165 10^3/uL (130-400); Red Cell Dist. Width 12.3 % (11.5-14.5); White Blood Cell Count 7.9 10^3/uL (4.8-10.8)
[2023-11-15 03:51] LABS: APTT > 200 Sec (23.4-35.0)
[2023-11-15 04:24] LABS: ALT (SGPT) 15 U/L (0-50); AST (SGOT) 47 U/L (17-59); Albumin 3.5 g/dl (3.5-5.0); Alkaline Phosphatase 75 U/L (38-126); Blood Urea Nitrogen 19 mg/dl (9-20); Calcium 8.8 mg/dl (8.4-10.2); Carbon Dioxide 25 mmol/L (22-30); Chloride 107 mmol/L (98-107); Estimated Creatinine Clearance 101 ml/min; Glucose 88 mg/dl (70-99); Magnesium 2.1 mg/dl (1.6-2.3); Potassium 4.1 mmol/L (3.5-5.1); Sodium 137 mmol/L (135-145); Total Bilirubin 1.1 mg/dl (0.2-1.3); Total Protein 6.7 g/dl (6.3-8.2); eGFR > 60.00
--- NOTE | 2023-11-15 07:09 | CON.NEURO4 ---
Addendum entered and electronically signed by Uriel Bustamante MD 11/15/23 12:35:
MRI brain images and report reviewed, empty sella is seen which is no clinical concern for significance. 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
I do not feel that there are any neurologic symptoms arising from this stenosis of the right subclavian artery no history to suggest that he has a subclavian steal syndrome. As such not going to recommend carotid ultrasound.
No findings of infarct on the brain MRI. I do feel that the symptoms of his headache and vision changes are fairly likely to have been spurred on by the rapid ventricular response of atrial fibrillation, less likely a TIA given there were no clear
focal symptoms of brain ischemia and TIAs are usually painless.
Can continue with the current plan for cardiac catheterization along with continuing heparin and antiplatelet medications
Original Note:
Consultation - Neurology 4
-
CONSULTING PHYSICIAN: Elbert Bustamante
REFERRING PHYSICIAN: Cardiology
DICTATED BY: Elbert Bustamante
DATE/TIME OF REQUEST: 11/15/23
DATE/TIME OF CONSULTATION: 11/15/23
Reason for Consultation: Headache, vision change, new atrial fibrillation
History of Present Illness:
The patient is a 78-year-old right-handed man with a past ministry of hypertension diabetes and hyperlipidemia who presented to hospital with generalized weakness, headache, vision changes. He was found to be in new atrial fibrillation with rapid
ventricular response and he was placed on IV Cardizem in the emergency department with conversion back to sinus rhythm. Review of EKG showed inferolateral T wave inversions which replaced lateral ST segment depression, troponin peaked at 2.050.
There is suspicion on the part of cardiology for significant underlying obstructive coronary artery disease, and he was placed on heparin and aspirin. CT head noncontrast did not show any acute changes no infarct or hemorrhage.
Patient reports that he seemed to have sudden onset of posterior region dull headache along with a vision change in both eyes one time in the past couple of days that was short and then recurred leading him to present to ED. He noticed that the
symptoms resolved after being placed on IV cardizem and heart rates improved. He and his family did not note any slurred speech or expressive speech difficulty, unilateral paresthesia or weakness, vertigo, or losing consciousness. Denies any chest
pain or dyspnea at this time. He feels well now, denies any current abnormal symptoms with vision returned to normal, no headache, normal speech and strength. No unusual headaches otherwise and no history of frequent headaches at baseline, no
recent head or neck trauma.
Past Medical History: Hypertension, hyperlipidemia, diabetes
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
Family History: Non-contributory
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
Allergies: No known drug allergies
Review of Symptoms:
Patient denies any fever, headache, chest pain, shortness of breath, GI or symptoms.
Physical Exam:
Well-appearing middle elderly age man no signs of trauma to the head or neck eyes are clear oropharynx is clear neck supple no masses full range of motion, heart rate regular no murmur appreciated, breathing unlabored no wheezing abdomen soft
nontender no lower extremity edema or rashes seen
Neurologic Examination:
The patient is awake, alert and oriented x 3. He is able to follow commands and answer questions appropriately. There is no aphasia or dysarthria. On cranial nerve assessment, pupils are 3 mm bilateral, round and reactive to light and
accommodation. Visual hassan are full. Extraocular movements are intact. Facial sensations are intact and bilaterally symmetrical, there is no facial asymmetry. Hearing is intact bilaterally to normal conversation volume. Tongue palate and uvula
are midline. Sternocleidomastoid strengths are full bilaterally. Motor strengths are 5/5 bilateral upper and lower extremities on medical research [place] scale. There is no drift or involuntary movement noted. Deep tendon reflexes are 2+ bilateral
upper and lower extremities and Babinski is absent bilaterally. Intact to light touch in upper and lower extremities which is symmetric. Coordination is intact by finger to nose bilaterally.
Neuro Imaging: CT head non contrast unremarkable, no acute infarct, masses, or hemorrhage
Impressions
1. Onset of posterior headache associated with bilateral vision changes, symptoms now resolved with normal neurologic exam. Suspect symptoms were due to atrial fibrillation and RVR, minor stroke would be a consideration, TIA is possible but I
feel less likely given the clinical context of atrial fibrillation with RVR. No extreme elevation in blood pressures would make PRES unlikely. No history of migraine type or headache disorder at baseline.
2. Presented in atrial fibrillation with RVR with heart rates improved now
3. There is suspicion for underlying obstructive coronary artery disease
4. Hypertension, hyperlipidemia, diabetes treated with oral medications
Recommendations:
1. Okay to continue current antithrombotics with heparin infusion and aspirin
2. Check MRI of the brain without contrast, MRA of the head and neck
3. Discussed signs and symptoms of stroke
4. Continue cardiac telemetry
5. Planned for cardiac catheterization. I suspect that MRI will not have any findings that would prohibit this or necessitate any delay for the procedure.
Will follow
Discussed patient care with: Patient and his son
NIH Stroke Score
Subsequent NIH Scale
Date of Subsequent NIH Scale: 11/15/23
Time of Subsequent NIH Scale: 07:11
NIH Stroke Score
Level of Consciousness: 0 - Alert
LOC Questions: 0-Answers both correctly
LOC Commands: 0-Performs both correctly
Best Horizontal Gaze: 0-Normal
Visual Hassan: 0=Normal, no visual loss
Facial Palsy: 0=Normal, symmetrical
Motor - Right Arm: 0=No drift 10 seconds
Motor - Left Arm: 0=No drift 10 seconds
Motor - Right Le-No drift 5 seconds
Motor - Left Le-No drift 5 seconds
Limb Ataxia: 0-Absent
Sensation: 0-Normal
Best Language: 0-No aphasia
Dysarthria: 0-Normal
Extinction and Inattention: 0-No abnormality
Total Score:: 0
Home Medications
-
Home Medications
aspirin 81 mg tablet,delayed release 75 mg PO DAILY Blood Clot Prevention/Tx 11/13/23
atorvastatin 10 mg tablet 10 mg PO DAILY High Cholesterol 11/13/23
levocarnitine 500 mg tablet 500 mg PO DAILY Supplement 11/13/23
metformin 500 mg tablet 125 mg PO BID Diabetes 11/13/23
olmesartan 20 mg tablet 20 mg PO DAILY Blood Pressure 11/13/23
Allergies
-
Allergies
Allergy/AdvReac Type Severity Reaction Status Date / Time
No Known Allergies Allergy Verified 11/13/23 07:59
Vital Signs / Labs
-
Vital Signs and Labs:
Temp Pulse Resp BP Pulse Ox
98.2 F 51 18 126/73 97
11/15/23 07:08 11/15/23 06:00 11/15/23 07:08 11/15/23 02:57 11/15/23 07:08
11/15/23 03:03
11/15/23 03:03
11/14/23 11/14/23 11/14/23
05:09 12:04 19:51
RBC
Hgb
Hct
MCH
APTT 50.1 H 106.0 H
Creatinine
Hemoglobin A1c 6.7 H
POC Glucose
11/14/23 11/15/23
22:08 03:03
RBC 4.00 L
Hgb 12.6 L
Hct 34.9 L
MCH 31.5 H
APTT > 200 H*
Creatinine 0.6 L
Hemoglobin A1c
POC Glucose 109 H
[2023-11-15 07:16] LABS: Glucose - Point of Care 80 mg/dl (70-99)
[2023-11-15] MEDS: NOVOLOG FLEXPEN-LOW RESISTANCE SC ×3 (07:23→18:11)
[2023-11-15] MEDS: LIPITOR 40 MG PO (08:03)
[2023-11-15] MEDS: FLUSH (NSS) 1 FLUSH IV ×2 (08:03→16:08)
[2023-11-15] MEDS: TOPROL XL 12.5 MG PO (08:03)
[2023-11-15] MEDS: BENICAR 20 MG PO (08:03)
[2023-11-15] MEDS: LOW STRENGTH ASPIRIN 81 MG PO (08:03)
--- NOTE | 2023-11-15 08:11 | PTCARENOTE ---
The patient is aaox3, his vitals are stable. He speak very little Stat[employer]. His son is in the room. Sinus yudelka is noted on the monitor. He has no complaints of chest pain, SOB, or a headache.
[2023-11-15 11:51] LABS: Glucose - Point of Care 229 mg/dl (70-99)
--- NOTE | 2023-11-15 12:25 | CM ---
Reviewed chart. Mr. Fleming was transferred to IVU. Met with Mr. Delatorre and his son to review discharge plans. Prior to admission he resides with his spouse and son in a two story home with three steps to enter. He has a first
floor set-up. Prior to admission he was independent with ambulation and adls. He has a prescription plan with [facility]. His co-pay for Eliquis is $12.00 a month. [facility] has Eliquis 5 mg po in stock. Medical work-up in progress. The
discharge plan is to return home with his spouse and son when medically stable.
--- NOTE | 2023-11-15 15:11 | W.PN.HOSP.TC ---
Today's Communication/Plan
-
LHC as per cards - tentatively ugo
npo at [facility]
cont hep ggt, statin, asa
Assessment / Plan
Assessment / Plan
Physical Exam
General: Well Developed, Well Nourished and No Apparent Distress
HEENT: Anicteric and Moist mucous membranes
Respiratory: Clear and Non Labored Respirations
Cardiac: S1/S2 and Regular Rhythm; No Murmur
GI: Soft and Non Tender
Rectal: Deferred by Provider
Musculoskeletal: No Clubbing, No Cyanosis and No Edema
Skin: Warm and Dry
Neuro: Awake, Alert and Nonfocal/grossly intact
Psych: Calm
Non-Sustained Ventricular Tachycardia
NSTEMI
-Patient spontaneously converted to sinus rhythm at IV Cardizem given in the ED
-Continue heparin drip, Eliquis on dc
-Continue Toprol XL
-Awaiting LHC
-Statin titration
-ASA
Paroxysmal atrial fibrillation w/ RVR, converted to normal sinus rhythm with diltiazem
-Hep ggt
-Eliquis dosing on DC
-Toprol
Headache
Right Subclavian Artery stenosis, high grade
-Symptoms of headache most likely 2/2 to RVR
-Cards consulted neuro to rule out cva
-no cva on MRI
-no interventions as per neurology at this time
Essential Hypertension
-Continue olmesartan with hold parameters
-Toprol
Hyperlipidemia
-Titrate Statin
Diabetes Mellitus, Type II
-Check HgbA1c - 6.7
-Hold metformin
-Monitor sugars and continue coverage insulin
DVT proph: Heparin Drip
Code Status: Full Code
Total time spent on today's encounter was 51 minutes which included time spent in counseling the patient/family regarding diagnosis and treatment plan as listed above, goals of care, and symptom management. Case was discussed with nursing staff,
specialists, and care coordinators/case management. All labs and imaging personally reviewed by me. Remainder the time spent in detailed review of previous records, lab data, imaging, and other medical provider documentation.
Anticipated Discharge: Within 24 hours
Subjective/Interval History
-
Date of Service: November 15, 2023
No acute vents overnight
Objective Data
-
Labs:
Laboratory Results
11/15/23 11/15/23 11/15/23
03:03 12:03 18:00
WBC 7.9
Hgb 12.6 L
Hct 34.9 L
Plt Count 165
APTT > 200 H* 81.0 H Pending
Sodium 137
Potassium 4.1
Chloride 107
Carbon Dioxide 25
BUN 19
Creatinine 0.6 L
Glucose 88
Calcium 8.8
Total Bilirubin 1.1
AST 47
ALT 15
Alkaline Phosphatase 75
Vital Signs:
Vital Signs
Temp Pulse Resp BP Pulse Ox
98.4 F 79 20 99/61 100
11/15/23 11:19 11/15/23 11:20 11/15/23 11:19 11/15/23 11:20 11/15/23 11:19
Review of Systems
-
History Source: Patient
All other systems: Not reviewed unless documented
Data Reviewed
-
CT Scan: Image personally visualized and interpreted and Report Reviewed by me
Labs: Labs Reviewed by me
[2023-11-15 15:49] LABS: ACT-LR - POC 303 Seconds (116-155)
--- NOTE | 2023-11-15 16:02 | PTCARENOTE ---
Received the patient from the analyst microbiology lab in his bed. The patient is aaox3, VSS, sinus yudelka on the monitor. No complaints of pain. Left R-band in place. A positive left radial pulse noted. 100% on RA. I instructed the patient on his activity
restrictions and expected oob time. His call pandya is within reach. his family is at his bedside.
[2023-11-15] MEDS: NSS 1000 IV (16:07)
--- NOTE | 2023-11-15 16:49 | CONSULT.CT ---
Addendum entered and electronically signed by Jaylan Barbour MD 11/16/23 12:42:
CARDIAC SURGERY ATTENDING:
It was my pleasure to evaluate Mr. Delatorre at his bedside. His son was present during our discussions. I reviewed all of his preoperative studies. I believe he will benefit from surgical coronary revascularization I anticipate WHITNEY to
LAD and greater saphenous vein to OM. The upper branch of his major obtuse marginal branch will also be inspected intraoperatively for potential bypass. Given his AF with RVR, I will also plan to perform an encompass maze procedure and exclusion
of his left atrial appendage. I had a long discussion with this patient and his son. We reviewed the pathology, the operative interventions, the associated periprocedural risks (including, but not limited to, , stroke, AL, arrhythmia, PPM
requirement, pneumonia, MARVIN/F, bleeding, and infection), the expected in-hospital postprocedural course, and the expected outpatient recovery. All questions were answered to the best of my abilities. The patient is agreeable to proceed.
I have tentatively scheduled him for operative intervention tomorrow 11/17/2023.
Thank you for the opportunity to participate in the care of this kind gentleman.
Please call with any questions or concerns.
Jaylan Samayoa MD
[phone]
Original Note:
Consultation
-
Date/Time Consultation Requested: 11/15/23
Requesting Provider: Magnolia Awan
Performing Provider: Fran Junior PA-C for Dr Jaylan Barbour
Reason for Consultation: CABG eval
Patient History
Physicians
Family Physician: none
Inpatient Rock Crusher Operator: JOSIANE Min
History of Present Illness
Patient is a 78-year-old man recently from [place],with hypertension, diabetes and presented with headache and dizziness upon awakening earlier and went to ED where he was found to be in atrial fibrillation with rapid ventricular response and
converted to sinus rhythm after administration of IV diltiazem. Had full neuro work up and found to have a high-grade stenosis of the right subclavian artery. But per Neuro: 'I do not feel that there are any neurologic symptoms arising from this
stenosis of the right subclavian artery no history to suggest that he has a subclavian steal syndrome. No findings of infarct on the brain MRI. I do feel that the symptoms of his headache and vision changes are fairly likely to have been spurred on
by the rapid ventricular response of atrial fibrillation, less likely a TIA given there were no clear focal symptoms of brain ischemia and TIAs are usually painless.'
As he is cleared by neurology he is therefore sent to the forestry laborer for angiography and possible stent. In the forestry laborer IFR LAD positive with Cx and OM disease. The specifics of the cath are not available to me at this time.
We are therefore consulted to render an opinion nod surgical revascularization.
Past Medical History
Past Medical History: HTN, Hypercholesterolemia and NIDDM
Past Surgical History
Past Surgical History: Other (Spine)
Family History
Mother: at Age
Father: at Age
Social History
Alcohol: None
Drug: None
Tobacco: Non-Smoker
Personal:
Living: With Family
Employment: Retired
Allergies
Allergy/AdvReac Type Severity Reaction Status Date / Time
No Known Allergies Allergy Verified 11/13/23 07:59
Home Medications
�Medication �Instructions �Recorded �Confirmed �Type
aspirin 81 mg tablet,delayed 75 mg PO DAILY Blood Clot 11/13/23 11/13/23 History
release Prevention/Tx
atorvastatin 10 mg tablet 10 mg PO DAILY High Cholesterol 11/13/23 11/13/23 History
levocarnitine 500 mg tablet 500 mg PO DAILY Supplement 11/13/23 11/13/23 History
metformin 500 mg tablet 125 mg PO BID Diabetes 11/13/23 11/13/23 History
olmesartan 20 mg tablet 20 mg PO DAILY Blood Pressure 11/13/23 11/13/23 History
Review of Systems
-
Unable to obtain full review of systems at this time due to: Language Barrier
Physical Exam
Vital Signs
Temp 98.3 F 11/15/23 15:59
Temp route: Oral 11/15/23 15:59
Pulse 57 11/15/23 16:00
Rhythm: Normal sinus rhythm 11/15/23 08:05
With- Bundle Branch Block Confi, Sinus bradycardia 11/15/23 08:05
Resp Rate 16 11/15/23 15:59
Blood pressure 125/58 11/15/23 15:58
Blood pressure extremity used: Right upper arm 11/15/23 15:59
Position: Lying 11/15/23 15:59
MAP (cuff-Stephen Monitor) 77 11/15/23 15:58
SaO2 100 11/15/23 15:59
Oxygen Mode of Delivery Room air 11/15/23 15:59
Can the patient verbally communicate their pain? Yes 11/14/23 16:06
Actual Weight 147 lb 0.773 oz 11/15/23 06:00
Body Mass Index (BMI) 22.4 11/15/23 06:00
Labs
11/15/23 03:03
11/15/23 03:03
APTT Cancelled 11/15/23 18:00
Hemoglobin A1c 6.7 % (4.0-5.6) H 11/14/23 05:09
Troponin I 3.440 ng/ml H* 11/14/23 05:09
Exam
General: Well Developed, No Apparent Distress and Comfortable; Negative Respiratory Distress, Pain or Fever
HEENT: Normocephalic, PERRLA and EOMI
Neck: Trachea Midline; Negative Carotid Bruit or Mass
Respiratory: Clear; Negative Wheezes, Crackles or Rhonchi
Cardiac: Regular Rhythm; Negative Murmur, Rub or Gallop
GI: Soft, Non Tender, Non Distended and Normal Bowel Sounds; Negative Tender or Bruit
Rectal: Deferred by Provider
Skin: Warm and Dry
Neuro: Awake, AO x 3, No Motor Deficits and CN X-XII Intact
Extremities: Negative Lower Level Edema or Lower Level Cyanosis
Lymph: No Lymphadenopathy
Psych: Calm
Assessment / Plan
-
#CAD
- Patient states he feels completely normal at this point. He and his son were asking about options other than open heart surgery.
-Patient's case will be discussed with attending physician. Further details regarding surgical timing intervention will be determined after attending physicians full evaluation
-Routine preoperative cardiothoracic surgery orders including a CT chest will be initiated.
-STS risk stratification score will be calculated after preoperative testing is complete
-Continue nitroglycerin and heparin gtt per cardiology
-Recommend Echo as per Cardiology
Data Reviewed
-
EKG: Report Reviewed by me
Radiology: Report Reviewed by me
MRI: Report Reviewed by me
Labs: Labs Reviewed by me
Critical Care Time (in minutes): 35
Total Time Spent with Patient (in minutes): 45
--- NOTE | 2023-11-15 17:51 | ITS.CL.CATH ---
Paralegal Instructor - Catheterization
Cardiac Catheterization
Procedure Report:
LEFT HEART CATHETERIZATION
Date of Procedure: November 15, 2023
Referring: Gregg Min MD
PROCEDURES:
1. Left heart catheterization, coronary angiogram.
2. Ultrasound-guided access.
3. Physiologic functional assessment with IFR of ostial and mid LAD
INDICATION: Patient is a 78-year-old gentleman originally from [facility] with past medical history of hypertension, hyperlipidemia, ctx-mwqkktw-laomesipy diabetes mellitus who presented this admission with NSTEMI and new onset atrial fibrillation
with RVR and vague neurologic symptoms with neuro workup so far negative found to have significant right subclavian artery stenosis who presents today for a left heart catheterization to rule out obstructive CAD. Troponin peaked at 5. Ongoing
reports of dyspnea on exertion.
ACCESS: Left radial artery, 6 German sheath, under ultrasound guidance
HEMODYNAMICS : (mmHg)
AO (s/d) : 145/60
LV (s/d) : 139/5
LVEDP : 14
CORONARY FINDINGS: The left coronary artery was engaged using a 5 German AL 2 diagnostic catheter
DOMINANCE: Right
LEFT MAIN: The left main artery is a large-caliber vessel which gives rise to the left anterior descending artery and the left circumflex artery. There is minimal luminal irregularities.
LEFT ANTERIOR DESCENDING: The LAD is a medium caliber vessel which gives rise to multiple small to medium caliber diagonal branches as it courses through the anterior interventricular groove and wraps around the apex. Mid LAD has a focal 70%
stenosis. Ostial LAD in limited views appears to have a possible eccentric 50 to 60% stenosis. iFR was performed on both of these lesions and was abnormal.
CIRCUMFLEX: The left circumflex artery is a medium caliber, moderately tortuous vessel which gives rise to 1 major branching obtuse marginal branch and multiple small left posterolateral branches. The lower branch of the obtuse marginal vessel has
a 95 to 99% hazy lesion which is likely culprit of presenting NSTEMI. There is also 50 to 60% ostial OM1 stenosis. Ostium of the upper branch also has 50 to 60% stenosis
RIGHT CORONARY ARTERY: The right coronary artery is a medium caliber, dominant vessel which gives rise to the right posterior descending artery and the right posterolateral system. There is mild diffuse atherosclerotic plaque.
HEMODYNAMIC ASSESSMENT OF THE OSTIAL AND MID LAD WITH A VERRATA WIRE: The origin of the LCA was cannulated with a 6 Fr AL-2 guide catheter. Intravenous heparin was administered and the ACT was followed during the procedure. Two hundred micrograms
of intracoronary nitroglycerin was given through the guide catheter. A VERRATA wire was advanced to the guide catheter tip and normalized in the left main. The Verrata wire was then carefully manipulated across the stenosis in the mid LAD with the
iFR below the ischemic threshold serially measuring 0.82, 0.82, 0.83. The Verrata wire was then pulled back slowly and IFR was remeasured to assess the ostium of the LAD which was also below the ischemic threshold at 0.87. The wire was then pulled
back to the guide catheter where the Pd/Pa measured 1.0 confirming no baseline drift in pressure readings.
SEDATION: 66 minutes of procedural sedation was utilized. An independent electromedical equipment technician was present to assist with and help manage the patient's level of consciousness and physiologic status.
RADIATION SUMMARY: Fluoro Time (min): 14.4, Dose (mGy): 814.1, DAP (Gy.cm2) : 54.4
Closure Device: Radial band over the left radial artery, 10 cc of air
CONCLUSIONS
1. Significant two-vessel coronary artery disease involving the left circumflex/OM system which is the culprit of presenting NSTEMI and ostial plus mid LAD (IFR positive at 0.87 and 0.82, respectively).
2. Normal LVEDP.
RECOMMENDATIONS
1. In the setting of known diabetes with two-vessel coronary artery disease involving the ostial LAD, will refer to CT surgery for coronary artery bypass grafting to LAD, left circumflex/OM system.
2. Aggressive management of cardiovascular risk factors.
3. Continue management of presenting NSTEMI and paroxysmal atrial fibrillation.
4. Eventual referral for outpatient cardiac rehab
Copy to: Gregg Min MD
Magnolia Tamez MD, FAC, [facility]
[2023-11-15 18:12] LABS: Glucose - Point of Care 82 mg/dl (70-99)
[2023-11-15] MEDS: HEPARIN 25000 UNITS/250 ML IV (22:17)
[2023-11-15 22:27] LABS: Glucose - Point of Care 114 mg/dl (70-99)
[2023-11-16] VITALS (7 sets, daily range): BP systolic 122–143; BP diastolic 55–65; BMI 21.8
[2023-11-16 02:32] LABS: Hemoglobin 11.9 g/dL (13.0-18.0); Mean Corp Hgb Conc. 36.1 g/dL (33.0-37.0); Mean Corpuscular Hgb 31.2 pg (27.0-31.0); Mean Corpuscular Volume 86.4 fL (80.0-94.0); Mean Platelet Volume 10.4 fL (7.4-10.4); Platelet Count 167 10^3/uL (130-400); Red Blood Cell Count 3.82 10^6/uL (4.70-6.10); Red Cell Dist. Width 12.4 % (11.5-14.5); White Blood Cell Count 7.8 10^3/uL (4.8-10.8)
[2023-11-16 02:43] LABS: INR 1.16; PT 14.6 Sec (11.4-14.6)
[2023-11-16 02:44] LABS: APTT 64.6 Sec (23.4-35.0)
[2023-11-16 03:36] LABS: ALT (SGPT) 14 U/L (0-50); AST (SGOT) 33 U/L (17-59); Albumin 3.5 g/dl (3.5-5.0); Alkaline Phosphatase 65 U/L (38-126); Blood Urea Nitrogen 13 mg/dl (9-20); Calcium 8.4 mg/dl (8.4-10.2); Carbon Dioxide 23 mmol/L (22-30); Chloride 108 mmol/L (98-107); Direct Bilirubin 0.3 mg/dl (0.0-0.4); Estimated Creatinine Clearance 99 ml/min; Glucose 87 mg/dl (70-99); Potassium 4.3 mmol/L (3.5-5.1); Sodium 138 mmol/L (135-145); Total Protein 6.4 g/dl (6.3-8.2); eGFR > 60.00
[2023-11-16 05:01] LABS: B.E. -0.2 mmol/L; O2 Saturation % 99.3 % (94-98); PCO2 37 mmHg (35-48); PO2 93 mmHg (83-108); pH 7.42 (7.35-7.45)
[2023-11-16 05:03] LABS: O2 Therapy ROOM AIR
[2023-11-16 07:57] LABS: Glucose - Point of Care 85 mg/dl (70-99)
[2023-11-16] MEDS: NOVOLOG FLEXPEN-LOW RESISTANCE SC ×2 (08:18→15:13)
[2023-11-16] MEDS: TOPROL XL 12.5 MG PO (08:21)
[2023-11-16] MEDS: LIPITOR 40 MG PO (08:21)
[2023-11-16] MEDS: BENICAR 20 MG PO (08:21)
[2023-11-16] MEDS: LOW STRENGTH ASPIRIN 81 MG PO (08:21)
--- NOTE | 2023-11-16 10:15 | PN.CDI ---
CDI
- -
CDI:
Physician Documentation Request
Admit Date: 11/13/23 15:07
Dear Doctor Kyaw,
Please review the following and provide your response in the progress notes.
Clinical Indicators:
The diagnosis of compression cervical spinal cord was included in the signed Brain MRI report
11/14, MR Brain Without Contrast
#INDICATION: 78-year-old with atrial fibrillation.
#Visual changes and headache. Clinical concern for CVA or
#...posterior reversible encephalopathy syndrome.
#...on sagittal T1-weighted sequence, at C3-4, there appears to be significant
#...compression of the spinal cord and narrowing of the spinal canal,
#...likely a significant component of central canal stenosis.
#...there is suggestion of significant compression of the cervical spinal cord at the C3-4 level.
Please indicate if the above diagnosis is valid for this patient:
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
Compression cervical spinal cord is not a valid diagnosis for this patient
Compression cervical cord spinal cord is not yet confirmed but remains a suspected condition
Other(please specify)
Use of terms such as suspected, likely, concern for, or probable are acceptable for a diagnosis that is being evaluated, monitored or treated as if it exists and can be coded in the inpatient setting, when documented at the time of discharge.
Thank you,
Agnes Pitt RN BSN CCDS
CDI Specialist
please contact via tiger text
Please use your independent medical judgment in providing your response.
--- NOTE | 2023-11-16 10:15 | CM ---
Reviewed chart. Met with Mr. Delatorre and son to review discharge plans. Prior to admission Mr. Delatorre resdies withh is spouse and son in a two story home with three steps to enter. He has a first floor set-up. His bedroom/full
bathroom are on the first floor. Prior to admission he was independent with ambulation and adls. He does not have any DME in the home. He has a prescription plan with [facility] and uses [facility]. Medical work-up in progress. The
discharge plan is to return home with his spouse and son and a home visit by the Cardiothoracic Transitional Care Nurse when medically stable.
We reviewed pre-op and post-op routines. We briefly reviewed the shower instructions. We reviewed restrictions including sternal precautions and driving restrictions. Gave him the Cardiothoracic Surgery Educational Booklet. We also discussed a
home visit by the Cardiothoracic Transitional Care Nurse. He is agreeable to a home visit. The plan is for CABG on Monday11/17/23.
[2023-11-16 10:19] LABS: APTT 155.7 Sec (23.4-35.0)
--- NOTE | 2023-11-16 11:42 | W.PN.CARDCBS ---
Addendum entered and electronically signed by Rusty Upton MD 11/16/23 16:04:
I saw and examined the patient.
The Printer Slotter Operator's note was reviewed and I agree with the note.
Comment: Briefly, 78-year-old man presenting with dizziness found to be in atrial fibrillation with rapid ventricular response
While in rapid A-fib nonspecific ST-T wave changes were noted
Subsequently had rise and fall of his troponin with peak at 5.47
Underwent invasive coronary angiography with multivessel CAD
Evaluated by CT surgery and was recommended to proceed with surgical revascularization, discussed with patient and son and they are agreeable to proceed
For now continue medical management with aspirin/statin/beta-sweta
Tentative plan for OR tomorrow
We will continue to follow with you
Original Note:
Today's Communication / Plan
-
Patient and son waiting to talk with CT surgeon about possibility of CABG
Impression / Plan
-
Meat Boner: None prior to admission, initially seen by Dr. JOSIANE Min
Impression:
Presented with headache, dizziness
Paroxysmal atrial fibrillation w/ RVR
NSTEMI, peak Troponin 5.47
CAD with Circ/OM lesions and iFR positive ostial and mid LAD lesions by cath 11/15/23
NSVT
HTN
DM2
HLD
Echo 11/13/2023: EF 50 to 55%, normal RV, mild MR, mild aortic insufficiency, mild TR with PAP 32 mmHg
Plan:
-Patient with dizziness and GARCÍA on admission and found to be in rapid Afib. Patient then spontaneously converted to SR after Cardizem IV push. ECG in rapid Afib showed T wave inversions that prompted Troponin check and initially Troponin was 0.022
and then 2.05 and ultimately peaked at 5.47. Patient had cath 11/15/23 with results as noted. Patient was seen by CT surgery and CABG offered.
-Talked with patient's son in the room 11/16/23. Odilon pictures of anatomy and discussed differences between treating with stents and CABG. Reviewed cath report and CT report with son as well. Patient and son await visit from CT surgeon and will then
decide on CABG.
-No chest pain. Cont Heparin gtt
-Cont aspirin 81 mg daily
-12 beat run of NSVT noted on telemetry 11/14/23. New to Toprol XL 12.5 mg daily this admission.
-Afib on admission was a new diagnosis. Will eventually need to consider OAC.
-Outpatient dose od olmesartan 20 mg daily was held for hypotension and in favor of adding BB due to NSVT
-Outpatient dose of atorvastatin increased to 40 mg daily for LDL 84
-Hgb A1c 6.7%. Metformin held after cath and being managed with corrective insulin
HPI: Patient is a 78 year old male with PMH of hypertension, hyperlipidemia, and DM2 who presented to [facility] for evaluation of headache and dizziness. He has been in his normal state of health, but shortly after he woke up this morning, he started to
feel off balance and noticed a headache which is atypical for him. He recently moved from [facility] and is living w/ family. While in [place], he followed w/ cardiology, however denies history of coronary disease or atrial fibrillation. He reportedly has
been told that he has occasional 'skipped beats,' but further details are unclear. He has not yet established cardiology care locally. On arrival to ER, he was noted to be in rapid atrial fibrillation w/ associated hypotension. He spontaneously
converted to SR after being given a bolus of IV cardizem. He remains in SR currently, however on review of telemetry did have a 12 beat run of NSVT. With this, he was asymptomatic. Labwork returned with initial troponin of 0.022, which trended up to
2.05 on repeat. He remains chest pain free currently and has no acute complaints. Head CT was without abnormality. Cardiology consulted for evaluation.
Progress Note - Meat Boner
Subjective
Date of Service: November 16, 2023
He feels well, no chest pain
Objective
Labs:
11/16/23 02:15
11/16/23 02:15
Labs
Hgb 11.9 g/dL (13.0-18.0) L 11/16/23 02:15
Hct 33.0 % (39.0-52.0) L 11/16/23 02:15
Plt Count 167 10^3/uL (130-400) 11/16/23 02:15
PT 14.6 Sec (11.4-14.6) 11/16/23 02:15
INR 1.16 11/16/23 02:15
APTT 155.7 Sec (23.4-35.0) H* 11/16/23 09:31
Sodium 138 mmol/L (135-145) 11/16/23 02:15
Potassium 4.3 mmol/L (3.5-5.1) 11/16/23 02:15
BUN 13 mg/dl (9-20) 11/16/23 02:15
Creatinine 0.6 mg/dL (0.7-1.3) L 11/16/23 02:15
Glucose 87 mg/dl (70-99) 11/16/23 02:15
Troponins
11/13/23 11/13/23 11/14/23
13:12 19:52 00:34
Troponin I 2.050 H* D 5.470 H* D 4.220 H*
11/14/23
05:09
Troponin I 3.440 H*
Vital Signs and I&O:
Vital Signs
Temp Pulse Resp BP Pulse Ox
98.4 F 70 18 143/58 97
11/16/23 07:52 11/16/23 11:00 11/16/23 07:52 11/16/23 07:54 11/16/23 08:02
Vital Signs
Temp Pulse Resp BP Pulse Ox
98.4 F 70 18 143/58 97
11/16/23 07:52 11/16/23 11:00 11/16/23 07:52 11/16/23 07:54 11/16/23 08:02
Intake & Output
11/14/23 11/15/23 11/16/23 11/17/23
06:59 06:59 06:59 06:59
Intake Total 500 / 500
Balance 500 / 500
Physical Exam
Physical Exam
GEN: AAOx3
HEENT: mmm
LUNGS: No audible wheeze
CV: SR on tele
ABD: ND
EXT: No edema
NEURO: Gross non-focal
SKIN: No rash
--- NOTE | 2023-11-16 14:11 | W.PN.UPDATE ---
Update Note
Progress Note Update
STS RISK SCORE
Procedure Type:�Isolated CABG
PERIOPERATIVE OUTCOME ESTIMATE %
Operative Mortality 1.52%
Morbidity & Mortality 6.83%
Stroke 0.87%
Renal Failure 0.83%
Reoperation 3.42%
Prolonged Ventilation 3.24%
Deep Sternal Wound Infection 0.087%
Long Hospital Stay (>14 days) 6.18%
Short Hospital Stay (<6 days)* 34.4%
Clinical Summary
Planned Surgery: Isolated CABG, Urgent, First cardiovascular surgery
Demographics: 78 year old, , male, 65.1kg, 173cm, BMI: 21.8 kg/m�
Lab Values: Creatinine: 0.6 mg/dL, Hematocrit: 33%, WBC Count: 7.8 10�/�L, Platelet Count: 965192 cells/�L
PreOp Medications: Oral diabetes control
Substance Abuse: Never smoker
Risk Factors / Comorbidities: Diabetes Mellitus , Hypertension
Cardiac Status: NYHA Class II, Ejection Fraction = 53%
Coronary Artery Disease: 2 vessels diseased, Unstable Angina
Valve Disease: Mild AR, Mild MR, Mild TR
Arrhythmia: Recent A-fib, Paroxysmal
--- NOTE | 2023-11-16 14:15 | W.PN.HOSP.TC ---
Addendum entered and electronically signed by Miguel Ángel Card MD 11/18/23 16:43:
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 F/u NSG outpatient
Original Note:
Today's Communication/Plan
-
asa, hep, toprol
CT surg timing for CABG
Assessment / Plan
Assessment / Plan
Physical Exam
General: Well Developed, Well Nourished and No Apparent Distress
HEENT: Anicteric and Moist mucous membranes
Respiratory: Clear and Non Labored Respirations
Cardiac: S1/S2 and Regular Rhythm; No Murmur
GI: Soft and Non Tender
Rectal: Deferred by Provider
Musculoskeletal: No Clubbing, No Cyanosis and No Edema
Skin: Warm and Dry
Neuro: Awake, Alert and Nonfocal/grossly intact
Psych: Calm
Non-Sustained Ventricular Tachycardia
NSTEMI
CAD
-Patient spontaneously converted to sinus rhythm at IV Cardizem given in the ED
-Continue heparin drip, Eliquis on dc
-Continue Toprol XL
-Two-vessel disease, diabetes�candidate for CABG
� Follow-up CT surgery plans for CABG
-Statin titration
-ASA
-Cont hep ggt
Paroxysmal atrial fibrillation w/ RVR, converted to normal sinus rhythm with diltiazem
-Hep ggt
-Eliquis dosing on DC
-Toprol
Headache
Right Subclavian Artery stenosis, high grade
-Symptoms of headache most likely 2/2 to RVR
-no cva on MRI
-no interventions as per neurology at this time
Essential Hypertension
-Continue olmesartan with hold parameters
-Toprol
Hyperlipidemia
-Titrate Statin
Diabetes Mellitus, Type II
-Check HgbA1c - 6.7
-Hold metformin
-Monitor sugars and continue coverage insulin
DVT proph: Heparin Drip
Code Status: Full Code
Total time spent on today's encounter was 52 minutes which included time spent in counseling the patient/family regarding diagnosis and treatment plan as listed above, goals of care, and symptom management. Case was discussed with nursing staff,
specialists, and care coordinators/case management. All labs and imaging personally reviewed by me. Remainder the time spent in detailed review of previous records, lab data, imaging, and other medical provider documentation.
Anticipated Discharge: > 48 hours
Subjective/Interval History
-
Date of Service: November 16, 2023
multivessel disease - planning for possible CABG
Objective Data
-
Labs:
Laboratory Results
11/16/23 11/16/23 11/16/23
02:15 04:54 09:31
WBC 7.8
Hgb 11.9 L
Hct 33.0 L
Plt Count 167
PT 14.6
INR 1.16
APTT 64.6 H 155.7 H*
HCO3 24.0
Sodium 138
Potassium 4.3
Chloride 108 H
Carbon Dioxide 23
BUN 13
Creatinine 0.6 L
Glucose 87
Calcium 8.4
Total Bilirubin 1.0
AST 33
ALT 14
Alkaline Phosphatase 65
Vital Signs:
Vital Signs
Temp Pulse Resp BP Pulse Ox
98.2 F 70 20 143/58 100
11/16/23 11:57 11/16/23 11:00 11/16/23 11:57 11/16/23 07:54 11/16/23 11:57
I&O
11/15/23 11/16/23 11/17/23
06:59 06:59 06:59
Intake Total 500 / 500
Balance 500 / 500
Review of Systems
-
History Source: Patient
All other systems: Not reviewed unless documented
Data Reviewed
-
CT Scan: Image personally visualized and interpreted and Report Reviewed by me
Labs: Labs Reviewed by me
[2023-11-16 15:14] LABS: Glucose - Point of Care 94 mg/dl (70-99)
[2023-11-16 17:06] LABS: Glucose - Point of Care 202 mg/dl (70-99)
--- NOTE | 2023-11-16 17:44 | PTCARENOTE ---
Pt transferred to CVICU, report given to
[2023-11-16 18:20] LABS: APTT 94.6 Sec (23.4-35.0)
[2023-11-16 20:33] LABS: Glucose - Point of Care 187 mg/dl (70-99)
[2023-11-16] MEDS: NOVOLOG FLEXPEN-LOW RESISTANCE 1 UNITS SC (20:33)
--- NOTE | 2023-11-16 20:45 | PTCARENOTE ---
Assumed care of pt from sandi PACHECO. Pt son at the bedside to help translate - pt able to speak and understand some Occitan. Pt AAOx3. SR on the monitor. HR 60s. BP stable. No edema. Palpable pulses. Pt on RA. POX 100%. Lung sounds clear. Abdomen
soft/nontender. Pt voiding in the bathroom w/ standby assist to help w/ heparin infusion. Left radial cath site CDI. PIV x1 CDI. Heparin infusing as ordered. Next PTT @midnight. Pt and family updated w/ plan of care for the night. Call pandya within
reach.
--- NOTE | 2023-11-16 22:37 | PTCARENOTE ---
Pt clipped for surgery and given CHG soap bath. Gown & linens changed. Pt resting in bed at this time. Heparin infusing as ordered. Denies pain. Call pandya within reach.
--- NOTE | 2023-11-16 23:00 | PTCARENOTE ---
report received from previous RN, assumed care of pt. walking rounds done, pt in bed, sleeping. VSS. NSR/SB 50's-60's on monitor. POX 100% on room air. Heparin gtt infusing per protocol via PIV. family at bedside. see worklist for full assessment,
VS, and interventions. pt sleeping between care.
[2023-11-17] VITALS (54 sets, daily range): BP systolic 71–146; BP diastolic 50–85; BMI 21.8
[2023-11-17] MEDS: BACTROBAN 2% OINTMENT 1 APPLIC NASAL ×2 (05:34→20:28)
[2023-11-17] MEDS: MAGNESIUM OXIDE 500 MG PO (05:34)
[2023-11-17] MEDS: LOPRESSOR 12.5 MG PO (05:34)
[2023-11-17] MEDS: PROTONIX 40 MG PO (05:34)
--- NOTE | 2023-11-17 06:00 | PTCARENOTE ---
pt VSS, no changes in assessment. SR 60's. POX 97% on room air. Heparin gtt maintained per protocol. family remained @ bedside overnight. 2nd bath w surgical soap and CHG wipes completed. pre-op meds given. AM labs drawn and sent. pt awaiting
transfer to OR.
[2023-11-17 06:20] LABS: Hematocrit 35.2 % (39.0-52.0); Hemoglobin 12.1 g/dL (13.0-18.0); Mean Corp Hgb Conc. 34.4 g/dL (33.0-37.0); Mean Corpuscular Hgb 30.9 pg (27.0-31.0); Mean Platelet Volume 11.1 fL (7.4-10.4); Platelet Count 155 10^3/uL (130-400); Red Blood Cell Count 3.91 10^6/uL (4.70-6.10); Red Cell Dist. Width 12.4 % (11.5-14.5); White Blood Cell Count 6.9 10^3/uL (4.8-10.8)
[2023-11-17 06:59] LABS: ALT (SGPT) 15 U/L (0-50); AST (SGOT) 29 U/L (17-59); Albumin 3.4 g/dl (3.5-5.0); Alkaline Phosphatase 70 U/L (38-126); Blood Urea Nitrogen 10 mg/dl (9-20); Calcium 8.4 mg/dl (8.4-10.2); Carbon Dioxide 24 mmol/L (22-30); Chloride 109 mmol/L (98-107); Estimated Creatinine Clearance 96 ml/min; Glucose 89 mg/dl (70-99); Sodium 139 mmol/L (135-145); Total Bilirubin 0.9 mg/dl (0.2-1.3); Total Protein 6.3 g/dl (6.3-8.2); eGFR > 60.00
[2023-11-17 07:35] LABS: ACT+ - POC 104 Seconds (82-134)
[2023-11-17 07:37] LABS: Glucose - POC 99 mg/dl (65-99); HCO3 - POC 22 mmol/L (21-29); Hematocrit - POC 32 % PCV (42-52); Hemodilution- POC No; Hemoglobin Calculated - POC 10.9; Ionized Calcium - POC 1.17 mmol/L (1.12-1.27); O2 Saturation %Calculated-POC 99.9 5 (92-96); PCO2 - POC 33 mmHg (35-45); PO2 - POC 312 mmHg (80-100); Potassium - POC 3.8 mmol/L (3.6-5.0); Sodium - POC 142 mmol/L (135-145); pH - POC 7.43 (7.35-7.45)
[2023-11-17 07:41] LABS: Urine Albumin Negative (Neg - Trace); Urine Bilirubin Negative (Negative); Urine Character Clear (Clear); Urine Color Yellow; Urine Glucose Negative (Negative); Urine Ketone Negative (Negative); Urine Leukocyte Trace (Negative); Urine Nitrite Negative (Negative); Urine Occult Blood 1+ (Negative); Urine Urobilinogen Negative (Neg - 1+)
[2023-11-17 08:43] LABS: Urine Squamous Cell 0-2 /LPF (Few); Urine White Cell 0-2 /HPF (0-5)
[2023-11-17 09:39] LABS: ACT+ - POC 504 Seconds (82-134)
[2023-11-17 10:06] LABS: B.E. - POC 1.4 mmol/L; Glucose - POC 175 mg/dl (65-99); HCO3 - POC 25 mmol/L (21-29); Hematocrit - POC 27 % PCV (42-52); Hemodilution- POC Yes; Hemoglobin Calculated - POC 9.2; Ionized Calcium - POC 1.05 mmol/L (1.12-1.27); PCO2 - POC 35 mmHg (35-45); PO2 - POC 534 mmHg (80-100); POC Comment CPB; Potassium - POC 3.8 mmol/L (3.6-5.0); Sodium - POC 141 mmol/L (135-145); pH - POC 7.47 (7.35-7.45)
[2023-11-17 10:07] LABS: ACT+ - POC 536 Seconds (82-134)
[2023-11-17 10:37] LABS: ACT+ - POC 546 Seconds (82-134)
[2023-11-17 10:39] LABS: B.E. - POC 0.5 mmol/L; Glucose - POC 151 mg/dl (65-99); HCO3 - POC 25 mmol/L (21-29); Hematocrit - POC 24 % PCV (42-52); Hemodilution- POC Yes; Hemoglobin Calculated - POC 8.3; Ionized Calcium - POC 1.03 mmol/L (1.12-1.27); O2 Saturation %Calculated-POC 99.9 5 (92-96); PCO2 - POC 37 mmHg (35-45); PO2 - POC 280 mmHg (80-100); POC Comment CPB REPEAT; Potassium - POC 4.1 mmol/L (3.6-5.0); Sodium - POC 141 mmol/L (135-145); pH - POC 7.44 (7.35-7.45)
[2023-11-17 11:05] LABS: B.E. - POC -0.7 mmol/L; Glucose - POC 130 mg/dl (65-99); HCO3 - POC 24 mmol/L (21-29); Hematocrit - POC 27 % PCV (42-52); Hemodilution- POC Yes; Hemoglobin Calculated - POC 9.3; Ionized Calcium - POC 1.09 mmol/L (1.12-1.27); O2 Saturation %Calculated-POC 99.9 5 (92-96); PCO2 - POC 41 mmHg (35-45); PO2 - POC 263 mmHg (80-100); POC Comment WARM; Potassium - POC 3.7 mmol/L (3.6-5.0); Sodium - POC 143 mmol/L (135-145); pH - POC 7.38 (7.35-7.45)
[2023-11-17 11:05] LABS: ACT+ - POC 469 Seconds (82-134)
[2023-11-17 11:20] LABS: ACT+ - POC 618 Seconds (82-134)
[2023-11-17 11:29] LABS: B.E. - POC -1.7 mmol/L; Glucose - POC 123 mg/dl (65-99); HCO3 - POC 23 mmol/L (21-29); Hematocrit - POC 26 % PCV (42-52); Hemodilution- POC Yes; Ionized Calcium - POC 1.03 mmol/L (1.12-1.27); O2 Saturation %Calculated-POC 99.7 5 (92-96); PCO2 - POC 40 mmHg (35-45); PO2 - POC 206 mmHg (80-100); POC Comment CPB; Potassium - POC 3.7 mmol/L (3.6-5.0); Sodium - POC 143 mmol/L (135-145); pH - POC 7.37 (7.35-7.45)
[2023-11-17 11:30] LABS: ACT+ - POC 521 Seconds (82-134)
[2023-11-17 11:53] LABS: ACT+ - POC 101 Seconds (82-134)
[2023-11-17 11:55] LABS: B.E. - POC 0.6 mmol/L; Glucose - POC 99 mg/dl (65-99); HCO3 - POC 26 mmol/L (21-29); Hematocrit - POC 26 % PCV (42-52); Hemodilution- POC Yes; Hemoglobin Calculated - POC 8.8; Ionized Calcium - POC 1.31 mmol/L (1.12-1.27); O2 Saturation %Calculated-POC 99.5 5 (92-96); PCO2 - POC 43 mmHg (35-45); PO2 - POC 171 mmHg (80-100); POC Comment POST; Potassium - POC 3.3 mmol/L (3.6-5.0); Sodium - POC 147 mmol/L (135-145); pH - POC 7.39 (7.35-7.45)
--- NOTE | 2023-11-17 12:20 | W.CVOR.SURPR ---
CVOR Surgeon Immed Pre Op
-
I have examined this patient prior to performance of the scheduled procedure.
The patient's condition is unchanged from the time of the dictated/written History and
Physical and the patient is able to undergo the scheduled procedure.
--- NOTE | 2023-11-17 12:21 | W.IMMPOSTOP ---
Surgical Immed Post Op Note
-
CARDIAC SURGERY OPERATIVE NOTE:
Preoperative Dx:
NSTEMI, 2VCAD
Recent AF w/ RVR
Postoperative Dx:
Same
Procedures:
1) Median sternotomy
2) Takedown of WHITNEY (narrow pedicle)
3) Endoscopic harvest/prep of LLE GSV
4) Encompass MAZE procedure
5) ELAA (35mm AtriClip)
6) CABG x 2 (GSV to OM, WHITNEY to LAD)
Surgeon:
Jaylan Barbour M.D.
Assistants:
Elva Johnson P.A.-C.; endoscopic GSV harvest/prep; welder first class throughout, closure
Fran Junior P.A.-C.; closure of LLE incision, [id number] sternotomy closure
Anesthesia:
Saul Cummings M.D. and Juvencio Mayo, C.R.N.A.
Perfusion:
Samantha EspinozaCTatiP.; XC: 62min, CPB: 97min
Findings:
WHITNEY was a healthy conduit w/ brisk blood flow, ELD 2.5mm
GSV was healthy conduit w/ ELD 3.0-3.5mm
LAD was visible on the epicardial surface, moderate scattered calcifications, ELD 2.65mm
OM was visible on the epicardial surface, dense scattered calcifications, ELD 2.65mm
Upper branch of OM was evaluated, but was only ~1mm, bypass not performed
BRENDA was small w/ windsock morphology, clipped at its base w/ good result; post-ALEXYS confirmed ELAA
After completion of the proximal anastomosis & release of aortic cross-clamp, I noticed an area of the GSV graft to the OM that was slightly narrowed by a branch clip ~1.5cm distal to proximal site. I was not satisfied with this appearance.
Fortunately, there was enough vein to allow for sacrifice of this proximal site. I resected this additional 1.5cm of GSV and re-performed the proximal anastomosis at the aortic root vent site. I was very happy with the final appearance and lie of
the vein graft. The graft had excellent flow on U/S assessment.
Implants:
AtriClip 35mm
Sternal wires x 10
CT x 4 (B/L pleural, inferior mediastinal, superior mediastinal)
Complications:
None
Condition:
79 sinus w/ isoelectric STs. 114/48. CVP 5. 100%
GTTS: levophed 3, precedex 0.5
Stable/guarded to recovery
[2023-11-17 12:53] LABS: Glucose - Point of Care 87 mg/dl (70-99)
--- NOTE | 2023-11-17 12:53 | CON.INTV ---
Consultation
Consultation Request
Date/Time Consultation Requested: 11/17/2023 - 1158
Date/Time Consultation Performed: 11/17/2023 - 1249
Requesting Provider: Julita ZIMMERMAN
Performing Provider: Torito Dubois MD
Reason for Consultation: post-op CABG
Medical History
-
Chief Complaint: Weakness, headache and bodyaches
History of Present Illness:
78-year-old male nontobacco smoker with a past medical history of hypertension, hyperlipidemia and DM type II who presents with generalized weakness with bodyaches and headache. In the ER he was found to be in rapid A-fib with heart rate in the
140�150s. He was saturating 99% on room air, was afebrile to 98.3 �F, and was tachypneic to 24-26 breaths/min. BP was low in the 70�80s/40�50s. Initial labs showed Hb 13.2, initial troponin negative at 0.022 however the repeat yemi to 2.05, TSH
was elevated at 5.58 but free T4 was WNL at 1.15. A CT of the head due to headache and body aches was done showing no acute intracranial abnormality. IVF with NS 0.9% x 1.5L given, in addition to cardizem 5mg IVP x1 which converted the patient
back to NSR. Cardiology was consulted, heparin gtt was started and the patient was admitted to telemetry for further management. After converting to NSR he had a run of NSVT/AIVR. EKG showed lateral ST depressions and then T wave versions. There
was concern for underlying CAD and patient went for left heart catheterization on 11/14 showing two-vessel CAD involving the ostial LAD and normal LVEDP at 14 mmHg. Given his history of diabetes cardiothoracic surgery was consulted for surgical
revascularization. Today, he underwent CABG x 2 with MAZE and BRENDA-exclusion with a #35mm clip. Patient tolerated the procedure well and was transferred to the CVICU postoperatively with critical care services consulted for additional
management/recommendations.
When I saw the patient he was in bed, on a pressure support trial on CPAP 5/5 at 40% FiO2, with peak pressure 11, breathing at 20 breaths/min and VTe of 320 mL. He is on Levophed at 2mcg/min an insulin drip at 2 units/h. He has mediastinal chest
tubes x 2 and a left/right pleural chest tube. Vitals show: Heart rate: 82, BP via left radial A-line: 91/82, BP via NIBP: 137/73, respiratory rate: 22 and SpO2 100%.
PMHx: Hypertension, hyperlipidemia, DM type II
PSHx: Spinal surgery
Past Medical History
Past Medical History: Other (Above as per HPI)
Past Surgical History: Other (Above as per HPI)
Social History
Tobacco: Non-smoker
Alcohol: None
Drug: None
Living: With Family
Family History
Family History: Reviewed & Not Pertinent
Allergies / Home Medications
Allergies
Allergy/AdvReac Type Severity Reaction Status Date / Time
No Known Allergies Allergy Verified 11/13/23 07:59
Home Medications
�Medication �Instructions �Recorded �Confirmed �Last Taken �Type
aspirin 81 mg tablet,delayed 75 mg PO DAILY Blood Clot 11/13/23 11/13/23 11/12/23 History
release Prevention/Tx
atorvastatin 10 mg tablet 10 mg PO DAILY High Cholesterol 11/13/23 11/13/23 11/12/23 History
levocarnitine 500 mg tablet 500 mg PO DAILY Supplement 11/13/23 11/13/23 11/12/23 History
metformin 500 mg tablet 125 mg PO BID Diabetes 11/13/23 11/13/23 11/12/23 History
olmesartan 20 mg tablet 20 mg PO DAILY Blood Pressure 11/13/23 11/13/23 11/13/23 History
Review of Systems
-
Unable to Obtain full review of systems at this time due to: Patient Intubation
Vitals / Labs / Diagnostic Testing
Vital Signs
Temp Pulse Resp BP Pulse Ox
98 F 59 17 125/61 98
11/17/23 00:15 11/17/23 06:00 11/17/23 00:15 11/17/23 05:20 11/17/23 05:18
Laboratory Results
11/16/23 11/17/23
18:00 00:22
APTT 94.6 H 122.0 H
Diagnostic Testing:
Physical Exam
-
HEENT: Normocephalic, Anicteric and Other (ETT in place)
Cardiovascular: S1/S2 and Peripheral Edema (negative)
Respiratory: Wheeze (negative), Rales (negative), Rhonchi (negative) and Other (Mechanical breath sounds heard bilaterally)
GI: Soft, Non Distended, Non Tender and Normal Bowel Sounds
Neurology: Tremors (n) and Other (Sedated)
Skin: Warm and Dry
General: Fever (negative) and Chills (negative)
Assessment
-
Assessment: 78-year-old male nontobacco smoker with a PMHx of hypertension, hyperlipidemia and DM type II who presents with generalized weakness with bodyaches and headache. In the ER he was found to be in rapid A-fib with heart rate in the
140�150s. He was saturating 99% on room air, was afebrile to 98.3 �F, and was tachypneic to 24-26 breaths/min. BP was low in the 70�80s/40�50s. Initial labs showed Hb 13.2, initial troponin negative at 0.022 however the repeat yemi to 2.05, TSH
was elevated at 5.58 but free T4 was WNL at 1.15. A CT of the head due to headache and body aches was done showing no acute intracranial abnormality. IVF with NS 0.9% x 1.5L given, in addition to cardizem 5mg IVP x1 which converted the patient
back to NSR. Cardiology was consulted, heparin gtt was started and patient was admitted to telemetry for further management. After converting to NSR he had a run of NSVT/AIVR. EKG showed lateral ST depressions and then T wave versions. There was
concern for underlying CAD and patient went for left heart catheterization on 11/14 showing two-vessel CAD involving the ostial LAD and normal LVEDP at 14 mmHg. Given his history of diabetes cardiothoracic surgery was consulted for surgical
revascularization. On 11/17/2023 he underwent CABG x 2 with MAZE and BRENDA-exclusion with a #35mm clip. Patient tolerated this procedure well and was transferred to the CVICU postoperatively with critical care services consulted for additional
management/recommendations.
Chronic conditions PMO MANAGER: Hypertension, hyperlipidemia, DM type II
Impression:
#NSTEMI with multivessel CAD s/p CABG x 2 with MAZE + BRENDA-exclusion with #35mm clip - POD#0
#Acute anemia
#Acute thrombocytopenia
#DM type II (HbA1C: 6.7)
#HTN
Plan:
Ventilator settings reviewed
FiO2 will be weaned to maintain SpO2 >90-94%
Minute ventilation will be adjusted
Arterial blood gases will be monitored
Spontaneous breathing trial will be attempted with hopeful extubation after anesthesia/sedation wear off
prn nebulized bronchodilators
Pulmonary artery catheter parameters will be followed
Pressors/antihypertensive/inotropes/diuretics will be provided as needed
Maintain MAP>65
Replete electrolytes with K>4, Mg>2
Monitor chest tube output (mediastinal chest tubes x 2+ left/right pleural chest tubes)
Monitor hemoglobin
Monitor platelet count and coags
Transfuse blood product if needed to keep Hb>8g/dL and plt>50k
CT surgery managing chest tubes
Monitor blood sugar with goal BG 140-180
Insulin drip per protocol
Aspiration precautions
VAP prevention protocol
DVT prophylaxis
Early nutrition
Early mobilization
Critical care statement: A total of 46 minutes of critical care time was provided for this patient today. This includes management of ventilator, spontaneous breathing trial, arterial blood gases, pressors, of unstable vital signs, evaluation of the
patient at bedside, reviewing the patient's pertinent medical records including radiographs, microbiology, laboratory evaluations, and discussion with primary team and critical care nursing.
Data:
CT Chest w/o contrast 11-16-2023:
Linear densities within the lower lungs, compatible with linear atelectasis and/or scarring.
There is no significant pleural effusion and no significant pericardial effusion.
Mild to moderate calcification involving the aortic arch, descending thoracic aorta, and upper abdominal aorta. No evidence for aortic aneurysm.
Dense coronary artery calcifications are noted.
In the upper abdomen, hypertrophy of the lateral segment of the left lobe of the liver with relative atrophy of the medial segment. This morphologic change has been described as an early sign of cirrhosis, and please correlate with any risk factors
for the development of cirrhosis.
Brain MRI 11-15-2023:
No evidence of acute intracranial abnormality.
On sagittal T1-weighted gradient echo sequence, there is suggestion of significant compression of the cervical spinal cord at the C3-4 level. As warranted, further evaluation with MRI of the cervical spine could be performed.
Partially empty sella. This is often an incidental finding of no clinical significance, although it does have an association with idiopathic intracranial hypertension. Many patients are asymptomatic and endocrinologically normal, although with some
increasing reports of variable hypopituitarism and hyperprolactinemia.
Cardiac Studies:
[facility] 11-15-2023:
CONCLUSIONS:
1. Significant two-vessel coronary artery disease involving the left circumflex/OM system which is the culprit of presenting NSTEMI and ostial plus mid LAD (IFR positive at 0.87 and 0.82, respectively).
2. Normal LVEDP.
RECOMMENDATIONS:
1. In the setting of known diabetes with two-vessel coronary artery disease involving the ostial LAD, will refer to CT surgery for coronary artery bypass grafting to LAD, left circumflex/OM system.
2. Aggressive management of cardiovascular risk factors.
3. Continue management of presenting NSTEMI and paroxysmal atrial fibrillation.
4. Eventual referral for outpatient cardiac rehab
Intra-operative ALEXYS 11-17-2023:
Low normal left ventricular systolic function, mild lateral hypokinesia. Stage I diastolic dysfunction.
Mild aortic regurgitation.
The aorta has atheroma less than 5 mm and mild to moderate concentric calcifications.
Trivial to mild mitral regurgitation.
Trace tricuspid regurgitation.
TTE 11-13-2023:
1. Left ventricle: Normal size and low normal systolic function estimated 50-
55% by volumetric assessment
2. Right ventricle: Normal
3. Atria: Normal
4. Mitral valve: Mild mitral regurgitation
5. Aortic valve: Mild aortic insufficiency
6. Tricuspid valve: Mild tricuspid regurgitation with mild pulmonary
hypertension and estimated pulmonary artery systolic pressures of 32 mmHg
7. No prior studies for comparison
[2023-11-17] MEDS: ALBUMIN 5% 250 IV ×3 (13:00→14:56)
[2023-11-17] MEDS: ANCEF 10 IV ×2 (13:00)
--- NOTE | 2023-11-17 13:03 | W.PN.UPDATE ---
Addendum entered and electronically signed by ELSIE Jensen 11/17/23 13:36:
CABG x 2 MOISE-LAD; SVG-OM. Encompass MAZE, BRENDA #35mm clip
Original Note:
Update Note
Progress Note Update
78 year old male admitted 11/12 for AF w/RVR and TIA symptoms, r/o for CVA. Ruled in for NSTEMI by troponin (max 5.47). Multivessel disease on cath.
IV fluids: 1200
U.O.:� 500
Blood:� none
Wires:� none
Inotropes:� none
Pressors:� Levophed @ 6
Sedatives:� Precedex
�
NEURO: sedated on Precedex, pupils +2mm B/L
RESP: #8OT @24cm> 600/60%/14/5. Lungs clear B/L. 2 mediastinal (60cc on arrival) and R/L pleural (10cc on arrival) chest tubes to -20cm suction. Sanguineous drainage
CV: RRR +S1, S2, no S3, no�rub, no murmur. Dermabond to median sternotomy. RIJ w/slick intact. CVP 6
ABD: round, soft, no BS
EXT: no edema, +2/4 DP pulses B/L, no femoral bruit, LLE KATHY wrap intact; left radial A-line intact
: Villar with clear yellow urine
�
A/P: POD #0 s/p CABG x
ALEXYS: EF�60-65%
- wean and extubate
# CAD/NSTEMI
- will require ASA/Plavix, statin, beta-sweta
# Pre-op PAF
CHADs-VASc score: 5 points. Stroke risk was 7.2% per year in >90,000 patients (the [place] Atrial Fibrillation Cohort Study) and 10.0% risk of stroke/TIA/systemic embolism.
- currently SR
- continue beta sweta
- Prophylactic Amio
�
# acute surgical blood loss anemia-expected
- trend CBC
�
# T2DM (A1C 6.7)
- insulin infusion x 48h
- resume MFM when off insulin and tolerating solid foods
�
# Hypertension
- resume�Olmesartan as BP permits
[2023-11-17 13:05] LABS: Hematocrit 24.4 % (39.0-52.0); Hemoglobin 8.7 g/dL (13.0-18.0); Platelet Count 91 10^3/uL (130-400)
[2023-11-17] MEDS: NSS 500 IV (13:05)
[2023-11-17 13:10] LABS: B.E. -1.1 mmol/L; HCO3 23.5 mmol/L (21-28); Ionized Calcium 1.08 mMOL/L (1.15-1.33); PCO2 38 mmHg (35-48); PO2 226 mmHg (83-108); Potassium 3.2 mMOL/L (3.5-5.1); Sodium 142 mMOL/L (136-145)
[2023-11-17 13:18] LABS: INR 1.66; PT 19.5 Sec (11.4-14.6)
[2023-11-17 13:19] LABS: APTT 37.7 Sec (23.4-35.0)
[2023-11-17] MEDS: KCL 50 IV (13:21)
[2023-11-17 13:30] LABS: Blood Urea Nitrogen 9 mg/dl (9-20); Estimated Creatinine Clearance 96 ml/min; Glucose 79 mg/dl (70-99); Magnesium 2.4 mg/dl (1.6-2.3)
[2023-11-17] MEDS: CALCIUM CHLORIDE 10% SYRINGE 50 ML IV (13:31)
[2023-11-17] MEDS: CALCIUM CHLORIDE 10% SYRINGE 50 MG IV (13:31)
[2023-11-17] MEDS: LIPITOR PO (13:39)
[2023-11-17] MEDS: NOVOLOG FLEXPEN SC ×2 (13:39→16:57)
[2023-11-17 14:20] LABS: Glucose - Point of Care 105 mg/dl (70-99)
--- NOTE | 2023-11-17 14:55 | W.PN.UPDATE ---
Update Note
Progress Note Update
Patient in OR, not in the room; Will continue to monitor arrival back to unit
Anticipate transferring service to CT Surgery post CABG
--- NOTE | 2023-11-17 15:12 | W.PN.CARDCBS ---
Addendum entered and electronically signed by Rusty Upton MD 11/17/23 16:37:
I saw and examined the patient.
The Vice President Industrial Relations's note was reviewed and I agree with the note.
Comment: Briefly, 78-year-old man presenting with dizziness found to be in atrial fibrillation with rapid ventricular response
ECG while in rapid atrial fibrillation with ST changes concerning for ischemia, troponin was subsequently checked and yemi to 5.5 repeat
Subsequently underwent left heart catheterization that revealed multivessel CAD and he underwent CABG today, 11/17/2023
Remains in the CVICU where he is intubated and sedated, nor epi for pressor support
Maintaining sinus rhythm on telemetry
Agree with medical therapy aspirin/Plavix, high intensity statin. Eventual beta-sweta as hemodynamics allow.
We will continue to follow with you
Original Note:
Today's Communication / Plan
-
Wean sedation with hopeful extubation later this evening
Continue to monitor on telemetry
Trend hemoglobin and electrolytes
Currently on 4 mcg/min of Levophed, wean as tolerated
Impression / Plan
-
Dental Chairside Assistant: None prior to admission, initially seen by Dr. JOSIANE Min
Impression:
Presented with headache, dizziness
Paroxysmal atrial fibrillation w/ RVR
NSTEMI, peak Troponin 5.47
CAD with Circ/OM lesions and iFR positive ostial and mid LAD lesions by cath 11/15/23
NSVT
HTN
DM2
HLD
Echo 11/13/2023: EF 50 to 55%, normal RV, mild MR, mild aortic insufficiency, mild TR with PAP 32 mmHg
Post CABG ALEXYS 11/17/23: EF 60-65%
Plan:
-Presented 11/13/2023 with dizziness and GARCÍA and found to be in rapid Afib. Patient then spontaneously converted to SR after Cardizem IV push. ECG in rapid Afib showed T wave inversions that prompted Troponin check and initially Troponin was 0.022 and
then 2.05 and ultimately peaked at 5.47. Patient had cath 11/15/23 with results as noted above w/ MVCAD. Patient was seen by CT surgery and CABG offered.
-s/p CABG x 2 MOISE-LAD; SVG-OM. Encompass MAZE, BRENDA #35mm clip on 11/17/2023
-Seen immediately post op. Remains intubated and sedated; anticipate extubation later today
-Post CABG ALEXYS EF 60-65%
-BP labile immediately post op, currently on Levophed 4 mcg/min
-Post op ECG SR w/ IVCD
-No intraop blood products, post op Hgb 8.7. Continue to monitor and trend
-12 beat run of NSVT noted on telemetry 11/14/23. New to Toprol XL 12.5 mg daily this admission. Resume as BP allows post operatively
-Afib on admission was a new diagnosis. Will eventually need to consider OAC.
-Outpatient dose of olmesartan 20 mg daily held for hypotension and in favor of adding BB due to NSVT and pre-operatively
-Now on increased dose of atorvastatin 40 mg daily for LDL 84 (was on 10 mg as outpt)
-Hgb A1c 6.7%. Eventual resumption of Metformin once cleared by CTS. Currently being managed with corrective insulin
HPI: Patient is a 78 year old male with PMH of hypertension, hyperlipidemia, and DM2 who presented to [facility] for evaluation of headache and dizziness. He has been in his normal state of health, but shortly after he woke up this morning, he started to
feel off balance and noticed a headache which is atypical for him. He recently moved from [place] and is living w/ family. While in [place], he followed w/ cardiology, however denies history of coronary disease or atrial fibrillation. He reportedly has
been told that he has occasional 'skipped beats,' but further details are unclear. He has not yet established cardiology care locally. On arrival to ER, he was noted to be in rapid atrial fibrillation w/ associated hypotension. He spontaneously
converted to SR after being given a bolus of IV cardizem. He remains in SR currently, however on review of telemetry did have a 12 beat run of NSVT. With this, he was asymptomatic. Labwork returned with initial troponin of 0.022, which trended up to
2.05 on repeat. He remains chest pain free currently and has no acute complaints. Head CT was without abnormality. Cardiology consulted for evaluation.
Progress Note - Dental Chairside Assistant
Subjective
Date of Service: November 17, 2023
Patient seen and examined immediately postoperatively. Patient intubated and sedated.
Objective
Labs:
11/17/23 12:48
Labs
Hgb 8.7 g/dL (13.0-18.0) L D 11/17/23 12:48
Hct 24.4 % (39.0-52.0) L 11/17/23 12:48
Plt Count 91 10^3/uL (130-400) L D 11/17/23 12:48
PT 19.5 Sec (11.4-14.6) H 11/17/23 12:48
INR 1.66 11/17/23 12:48
APTT 37.7 Sec (23.4-35.0) H 11/17/23 12:48
Sodium 139 mmol/L (135-145) 11/17/23 05:24
Potassium 4.0 mmol/L (3.5-5.1) 11/17/23 05:24
BUN 9 mg/dl (9-20) 11/17/23 12:48
Creatinine 0.6 mg/dL (0.7-1.3) L 11/17/23 12:48
Glucose 79 mg/dl (70-99) 11/17/23 12:48
Vital Signs and I&O:
Vital Signs
Temp Pulse Resp BP Pulse Ox
96.9 F L 80 14 125/61 100
11/17/23 14:44 11/17/23 14:44 11/17/23 14:44 11/17/23 05:20 11/17/23 14:44
Vital Signs
Temp Pulse Resp BP Pulse Ox
96.9 F L 80 14 125/61 100
11/17/23 14:44 11/17/23 14:44 11/17/23 14:44 11/17/23 05:20 11/17/23 14:44
Intake & Output
11/15/23 11/16/23 11/17/23 11/18/23
06:59 06:59 06:59 06:59
Intake Total 500 / 500 979.4 / 979.4
Output Total 1085 / 1085
Balance 500 / 500 -105.6 / -105.6
Physical Exam
Physical Exam
GEN: Intubated and sedated
HEENT: supple, anicteric, mmm
LUNGS: Anterior CTA, no wheezes/rales
CV: Reg, S1/S2, no murmur, rub or gallop
ABD: soft, BS+, NT/ND
EXT: No edema bilaterally, left lower extremity in Kennedy dressing
NEURO: Unable to assess, currently intubated and sedated
SKIN: No rash, warm, dry, pink
[2023-11-17 15:42] LABS: Glucose - Point of Care 109 mg/dl (70-99)
--- NOTE | 2023-11-17 16:22 | CM ---
Patient in OR today for CT Surgery.
Prior to admission he resides with his spouse and son in a two story home with three steps to enter. He has a first floor set-up. Prior to admission he was independent with ADLs and functional mobility.
Antic. DC to home w/ CT Transitional Care RN once stable.
CM to follow.
--- NOTE | 2023-11-17 16:45 | PTCARENOTE ---
ABG results on cpap and Hemoglobin was 7.8: new orders received from Julita BUCK to transfuse 1 unit prbc then wean levo and extubate.
[2023-11-17 16:49] LABS: B.E. -1.2 mmol/L; HCO3 23.6 mmol/L (21-28); Ionized Calcium 1.26 mMOL/L (1.15-1.33); PCO2 39 mmHg (35-48); PO2 150 mmHg (83-108); Potassium 4.5 mMOL/L (3.5-5.1); pH 7.39 (7.35-7.45)
[2023-11-17 16:51] LABS: Hematocrit 21.8 % (39.0-52.0); Hemoglobin 7.8 g/dL (13.0-18.0); Platelet Count 95 10^3/uL (130-400)
[2023-11-17 16:57] LABS: Glucose - Point of Care 104 mg/dl (70-99)
[2023-11-17] MEDS: PACERONE PO (16:57)
[2023-11-17] MEDS: NEURONTIN PO (16:57)
[2023-11-17] MEDS: TYLENOL PO (16:57)
[2023-11-17] MEDS: ANCEF 5 IV (17:30)
[2023-11-17 18:04] LABS: Glucose - Point of Care 99 mg/dl (70-99)
--- NOTE | 2023-11-17 18:15 | PTCARENOTE ---
Extubated to 6l nasal canula. Levophed at 2mcg after PRBC infusion. OK to extubate per HEBER Cancino
[2023-11-17 20:01] LABS: Glucose - Point of Care 81 mg/dl (70-99)
[2023-11-17] MEDS: CALCIUM CHLORIDE 10% SYRINGE 60 MG IV (20:05)
[2023-11-17] MEDS: LOW STRENGTH ASPIRIN 81 MG PO (20:24)
[2023-11-17] MEDS: SENOKOT-S 1 TABLET PO (20:24)
--- NOTE | 2023-11-17 20:30 | PTCARENOTE ---
Assumed care of patient at 1900. Patient found resting in bed at time of assessment with son at bedside. Patient has known language barrier. Patient is AOx4, follows commands appropriately, moves all extremities. Lung sounds are diminished
throughout with shallow respirations, patient is on 6L via NC with saO2 at 100%. Patient has CTx4: R/L pleural to one atrium and 2xmeds to one atrium draining red sanguineous. Heart sounds have a regular rate and rhythm, patient is SR on the
monitor, there is a rub present on auscultation. Patient has weak dorsalis pedis pulses and positive radial pulses. Patient has hypoactive BS throughout soft nontender abdomen. Villar catheter in place draining clear yellow urine. There is a sternal
incision with aquacell dressing that is CDI, a LLE incision approx with surg adhesive FAWAD with KATHY wrap, and L groin puncture approx with surg adhesive FAWAD. Patient has R and L AC PIV. There is a R IJ cordis with slic both receiving KVO, insulin gtt
column 2 and Levo@2. Levo turned off at 2024 for MAP>90. Patient is stable.
[2023-11-17] MEDS: NOVOLOG FLEXPEN-LOW RESISTANCE SC ×2 (20:36)
[2023-11-17] MEDS: TOPROL XL PO (20:37)
[2023-11-17] MEDS: LOW STRENGTH ASPIRIN PO (20:37)
[2023-11-17] MEDS: BENICAR PO (20:37)
[2023-11-17 22:05] LABS: Glucose - Point of Care 94 mg/dl (70-99)
[2023-11-17] MEDS: PACERONE 200 MG PO (23:05)
[2023-11-17] MEDS: NEURONTIN 100 MG PO (23:05)
[2023-11-17] MEDS: TYLENOL 1000 MG PO (23:05)
[2023-11-17 23:11] LABS: Glucose - Point of Care 84 mg/dl (70-99)
[2023-11-18] VITALS (64 sets, daily range): BP systolic 79–119; BP diastolic 48–68; PULSE 85; O2SAT 96; BMI 22.2
--- NOTE | 2023-11-18 | PTCARENOTE ---
Patient reassessed. VSS. Remains off pressors. Tolerating oral intake. Remains SR on the monitor. No c/o pain. Patient is stable.
[2023-11-18 00:01] LABS: Glucose - Point of Care 114 mg/dl (70-99)
[2023-11-18 01:06] LABS: Glucose - Point of Care 111 mg/dl (70-99)
[2023-11-18] MEDS: ANCEF 5 IV ×2 (01:06→09:00)
[2023-11-18 02:06] LABS: Glucose - Point of Care 91 mg/dl (70-99)
[2023-11-18 03:11] LABS: Glucose - Point of Care 94 mg/dl (70-99)
[2023-11-18 03:27] LABS: Ionized Calcium 1.26 mMOL/L (1.15-1.33)
[2023-11-18 03:28] LABS: Hematocrit 25.9 % (39.0-52.0); Hemoglobin 9.2 g/dL (13.0-18.0); Mean Corp Hgb Conc. 35.5 g/dL (33.0-37.0); Mean Corpuscular Hgb 30.9 pg (27.0-31.0); Mean Corpuscular Volume 86.9 fL (80.0-94.0); Mean Platelet Volume 10.5 fL (7.4-10.4); Platelet Count 103 10^3/uL (130-400); Red Blood Cell Count 2.98 10^6/uL (4.70-6.10); Red Cell Dist. Width 13.5 % (11.5-14.5); White Blood Cell Count 12.5 10^3/uL (4.8-10.8)
[2023-11-18 03:38] LABS: INR 1.28; PT 16.1 Sec (11.4-14.6)
[2023-11-18 03:50] LABS: Blood Urea Nitrogen 16 mg/dl (9-20); Calcium 9.2 mg/dl (8.4-10.2); Carbon Dioxide 22 mmol/L (22-30); Chloride 112 mmol/L (98-107); Estimated Creatinine Clearance 83 ml/min; Glucose 90 mg/dl (70-99); Magnesium 2.1 mg/dl (1.6-2.3); Potassium 4.2 mmol/L (3.5-5.1); Sodium 141 mmol/L (135-145); eGFR > 60.00
--- NOTE | 2023-11-18 04:05 | W.PN.CT ---
Addendum entered and electronically signed by Jaylan Barbour MD 11/18/23 09:05:
I saw and examined the patient.
The PA's note was reviewed and I agree with the note.
Comment:
POD#1 s/p CABG x 2, Encompass MAZE, ELAA
No issues, OFF levophed at 5am
Hold BB this AM
ASA/plavix, amio, lipitor
Maintain CTs today
Maintain cordis
D/C bolton
OOB/IS/ambulate
Original Note:
Today's Communication / Plan
-
Plan:
-No major issuess overnight. Neurologically and hemodynamically intact
-Successfully extubated yesterday 11/17/23 @ 1815
-Weaned off Levophed gtt this AM @ 0500. Remains on insulin gtt per protocol
-Hold AM dose of Lopressor
-Cont. current meds (ASA, Amiodarone, Lipitor; will add Plavix, will likely require DOAC on POD#4 given preop A-fib)
-Monitor chest tube output: 2meds 55/275, R/L pleural 170/340
-D/C'd SLIC this AM @ 0600
-D/C'd bolton this AM @ 0600
-A-line was non-functional and d/c'd yesterday postop
-Tele phase tomorrow when off insulin gtt
-Maintain cordis
-No temporary PW
-Encourage use of IS
-OOB into chair/Ambulate
Assessment / Plan
-
Assessment:
-S/P CABG x 2 (MOISE-LAD, SVG-OM)/Encompass MAZE, ELAA (35 mm Atriclip) by Dr. Barbour, 11/17/23, pod#1
-Presented with headache, dizziness/?TIA
-Paroxysmal atrial fibrillation w/ RVR
-NSTEMI, peak Troponin 5.47
-CAD with Circ/OM lesions and iFR positive ostial and mid LAD lesions by cath 11/15/23
-NSVT
-HTN
-DM2 (AIC 6.7)
-HLD
-S/P lumbar spine surgery
-Acute postop blood loss/Anemia (transfused 1u PRBC)
-Acute postop atelectasis
-Acute postop hypovolemia with subsequent hypervolemia
Discussed patient care with: Cardiology, Nursing, Respiratory Therapy, Pharmacy and Care Team
Subjective
Procedure
CABG x 2 (MOISE-LAD, SVG-OM)/MUNDO Gomes (35 mm Atriclip) by Dr. Barbour, 11/17/23
-
Date of Service: November 18, 2023
Pt c/o mild incisional pain, otherwise feels well
Objective Data
-
Lab Results
11/18/23 03:18
11/18/23 03:18
PT 16.1 Sec (11.4-14.6) H 11/18/23 03:18
INR 1.28 11/18/23 03:18
APTT 37.7 Sec (23.4-35.0) H 11/17/23 12:48
Vital Signs
Vital Signs
Temp Pulse Resp BP Pulse Ox
99.4 F 73 17 105/62 99
11/18/23 03:04 11/18/23 03:04 11/18/23 03:04 11/18/23 03:04 11/18/23 03:04
CT Intake/Output/Weight
11/17/23 11/17/23 11/18/23
06:59 18:59 06:59
Intake Total 1323.5 / 1527.5 204.0 / 1527.5
Output Total 1585 / 2205 620 / 2205
Balance -261.5 / -677.5 -416.0 / -677.5
SaO2: 99 (2L)
Physical Exam
-
General: Awake, Oriented and AOx3
Cardiovascular: Regular rate & rhythm, No Murmurs, Rub (likely friction rub from chest tubes) and No Gallop
Respiratory: Decreased Breath Sounds
Sternum: Stable
Incision: Clean, Dry, Intact and Dressing Intact
Extremities: No Edema
Data Reviewed
-
Lab Results: Results Reviewed
Medications: Active Meds Reviewed
Chest X-Ray: Report Reviewed and Image Reviewed
CT Scan: Report Reviewed and Image Reviewed
ECG: Report Reviewed and Image Reviewed
[2023-11-18] MEDS: ALBUMIN 5% 250 IV (04:12)
--- NOTE | 2023-11-18 04:31 | PTCARENOTE ---
Patient reassessed. AM labs obtained. Patient hypotensive at 0245 CT PA notified. Restarted on Levo @1 blood pressure improved will maintain for now. CT PA ordered [id number] bag of albumin. AM hygiene care provided. No orders to deline at this time.
[2023-11-18 05:08] LABS: Glucose - Point of Care 90 mg/dl (70-99)
[2023-11-18] MEDS: TYLENOL 1000 MG PO ×3 (05:28→22:05)
--- NOTE | 2023-11-18 06:36 | PTCARENOTE ---
Per CT PA turn off levophed. Discontinue slic. Remove bolton per standing order. Maintain patient on bedrest for now given labile pressures. Weaned to 2L O2 via NC as of this AM.
--- NOTE | 2023-11-18 07:00 | PTCARENOTE ---
Bedside walking rounds report received. Patient seen on rounds resting in bed on 2l weanedto room air on rounds. Goal is MAP >60mmhg and restart levo if needed per ct surgery notification. Chest tubes without ' dumping' with sitting upright. Speaks
some Irish: son at bedside to translate needs if needed. Has not voided post bolton removal. See flowrecord for remaining assessments.
--- NOTE | 2023-11-18 07:40 | W.PN.ANS.POP ---
Anesthesia Post Operative
- Anesthesia Post Op Note
Vital Signs Stable-See Nursing Note: Yes
Airway Patent: Yes
Adequate Pain Control: Yes
Change in Mental Status: No
Current Postoperative Nausea & Vomiting: No
Anesthesia Complications: No
General Anesthetic Recall: No
Unplanned Admission: No
Post Op Hydration Adequate: Yes
[2023-11-18] MEDS: NOVOLOG FLEXPEN SC ×3 (08:00→16:12)
[2023-11-18 08:02] LABS: Glucose - Point of Care 87 mg/dl (70-99)
[2023-11-18] MEDS: SENOKOT-S 1 TABLET PO ×2 (08:59→19:42)
[2023-11-18] MEDS: PROTONIX 40 MG PO (08:59)
[2023-11-18] MEDS: NEURONTIN 100 MG PO ×3 (08:59→22:07)
[2023-11-18] MEDS: MAGNESIUM OXIDE PO (08:59)
[2023-11-18] MEDS: PACERONE 200 MG PO ×4 (08:59→22:07)
[2023-11-18] MEDS: BACTROBAN 2% OINTMENT 1 APPLIC NASAL ×2 (08:59→19:43)
[2023-11-18] MEDS: LIDOCAINE 4% PATCH TOPICAL (09:00)
[2023-11-18] MEDS: LOW STRENGTH ASPIRIN 81 MG PO (09:00)
[2023-11-18] MEDS: PLAVIX PO (09:00)
[2023-11-18] MEDS: LIPITOR 40 MG PO (09:00)
--- NOTE | 2023-11-18 09:00 | W.PN.INTV ---
Today's Communication / Plan
Recommendations
Up OOB as tolerated
Pain control
Encourage incentive spirometer use - 10x per hour for at least 4 hours a day
Cardiac rehab consult
Wean off insulin gtt as tolerated with goal BG 140-180
[employer] Safety Program Coordinator/Pulmonary service will continue to follow along while patient remains CVICU status. Once downgraded then we will sign off.
Assessment
-
Assessment: 78-year-old male nontobacco smoker with a PMHx of hypertension, hyperlipidemia and DM type II who presents with generalized weakness with bodyaches and headache. In the ER he was found to be in rapid A-fib with heart rate in the
140�150s. He was saturating 99% on room air, was afebrile to 98.3 �F, and was tachypneic to 24-26 breaths/min. BP was low in the 70�80s/40�50s. Initial labs showed Hb 13.2, initial troponin negative at 0.022 however the repeat yemi to 2.05, TSH
was elevated at 5.58 but free T4 was WNL at 1.15. A CT of the head due to headache and body aches was done showing no acute intracranial abnormality. IVF with NS 0.9% x 1.5L given, in addition to cardizem 5mg IVP x1 which converted the patient
back to NSR. Cardiology was consulted, heparin gtt was started and patient was admitted to telemetry for further management. After converting to NSR he had a run of NSVT/AIVR. EKG showed lateral ST depressions and then T wave versions. There was
concern for underlying CAD and patient went for left heart catheterization on 11/14 showing two-vessel CAD involving the ostial LAD and normal LVEDP at 14 mmHg. Given his history of diabetes cardiothoracic surgery was consulted for surgical
revascularization. On 11/17/2023 he underwent CABG x 2 with MAZE and BRENDA-exclusion with a #35mm clip. Patient tolerated this procedure well and was transferred to the CVICU postoperatively with critical care services consulted for additional
management/recommendations.
Chronic conditions MANAGER SECURITY AND SAFETY: Hypertension, hyperlipidemia, DM type II
Impression:
#NSTEMI with multivessel CAD s/p CABG x 2 with MAZE + BRENDA-exclusion with #35mm clip - POD#1
#Acute anemia s/p 1 unit PRBC transfusion on 11/17/2023
#Acute thrombocytopenia
#DM type II (HbA1C: 6.7)
#HTN
Plan:
Patient successfully extubated to 6 L/min nasal cannula on 11/17/2023 patient now breathing comfortably on room air
Maintain SpO2 >90-94%
prn nebulized bronchodilators
Pulmonary artery catheter removed
Maintain MAP>65
Replete electrolytes with K>4, Mg>2
Monitor chest tube output (mediastinal chest tubes x 2+ left/right pleural chest tubes)
Monitor hemoglobin
Monitor platelet count and coags
Transfuse blood product if needed to keep Hb>8g/dL and plt>50k
CT surgery managing chest tubes
Monitor blood sugar with goal BG 140-180
Insulin drip per protocol
Aspiration precautions
DVT prophylaxis
Early nutrition
Early mobilization
Patient continues to be on an insulin infusion. [employer] Safety Program Coordinator/Pulmonary service will continue to follow along while patient remains CVICU status. Once downgraded then we will sign off.
Critical care statement: A total of 41 minutes of critical care time was provided for this patient today. This includes management of ventilator, spontaneous breathing trial, arterial blood gases, pressors, of unstable vital signs, evaluation of the
patient at bedside, reviewing the patient's pertinent medical records including radiographs, microbiology, laboratory evaluations, and discussion with primary team and critical care nursing.
Data:
CXR 11-18-2023:
1. Interval extubation since 11/17/2023.
2. Postoperative from CABG surgery with mediastinal and bilateral pleural chest tubes remaining in place.
3. Mildly to moderately decreased bilateral lung volumes with a moderate amount of postoperative atelectasis in the lower lobes and suspected minimal bilateral pleural effusions.
4. Mild cardiomegaly.
CT Chest w/o contrast 11-16-2023:
Linear densities within the lower lungs, compatible with linear atelectasis and/or scarring.
There is no significant pleural effusion and no significant pericardial effusion.
Mild to moderate calcification involving the aortic arch, descending thoracic aorta, and upper abdominal aorta. No evidence for aortic aneurysm.
Dense coronary artery calcifications are noted.
In the upper abdomen, hypertrophy of the lateral segment of the left lobe of the liver with relative atrophy of the medial segment. This morphologic change has been described as an early sign of cirrhosis, and please correlate with any risk factors
for the development of cirrhosis.
Brain MRI 11-15-2023:
No evidence of acute intracranial abnormality.
On sagittal T1-weighted gradient echo sequence, there is suggestion of significant compression of the cervical spinal cord at the C3-4 level. As warranted, further evaluation with MRI of the cervical spine could be performed.
Partially empty sella. This is often an incidental finding of no clinical significance, although it does have an association with idiopathic intracranial hypertension. Many patients are asymptomatic and endocrinologically normal, although with some
increasing reports of variable hypopituitarism and hyperprolactinemia.
Cardiac Studies:
[facility] 11-15-2023:
CONCLUSIONS:
1. Significant two-vessel coronary artery disease involving the left circumflex/OM system which is the culprit of presenting NSTEMI and ostial plus mid LAD (IFR positive at 0.87 and 0.82, respectively).
2. Normal LVEDP.
RECOMMENDATIONS:
1. In the setting of known diabetes with two-vessel coronary artery disease involving the ostial LAD, will refer to CT surgery for coronary artery bypass grafting to LAD, left circumflex/OM system.
2. Aggressive management of cardiovascular risk factors.
3. Continue management of presenting NSTEMI and paroxysmal atrial fibrillation.
4. Eventual referral for outpatient cardiac rehab
Intra-operative ALEXYS 11-17-2023:
Low normal left ventricular systolic function, mild lateral hypokinesia. Stage I diastolic dysfunction.
Mild aortic regurgitation.
The aorta has atheroma less than 5 mm and mild to moderate concentric calcifications.
Trivial to mild mitral regurgitation.
Trace tricuspid regurgitation.
TTE 11-13-2023:
1. Left ventricle: Normal size and low normal systolic function estimated 50-
55% by volumetric assessment
2. Right ventricle: Normal
3. Atria: Normal
4. Mitral valve: Mild mitral regurgitation
5. Aortic valve: Mild aortic insufficiency
6. Tricuspid valve: Mild tricuspid regurgitation with mild pulmonary
hypertension and estimated pulmonary artery systolic pressures of 32 mmHg
7. No prior studies for comparison
Subjective Dataa
Subjective Data
Date of Service:
Date of Service: November 18, 2023
Chief Complaint: [employer] Safety Program Coordinator Follow Up
Subjective:
Patient seen and evaluated today at bedside. Currently on room air breathing comfortably. He is on an insulin drip at 1.7 units/h. Chest tubes remain in place attached to Pleur-evac. Current heart rate 85 and BP 99/54
Review of Systems
General: Other (Negative unless mentioned above)
Objective Data
Data Reviewed
Vital Signs / I&O / Oxygen:
Vital Signs
Temp Pulse Resp BP Pulse Ox
99 F 82 24 83/50 98
11/18/23 07:57 11/18/23 09:01 11/18/23 09:01 11/18/23 09:01 11/18/23 07:57
Intake and Output
11/17/23 11/18/23 11/19/23
06:59 06:59 06:59
Intake Total 1846.3 / 1846.3 320.8 / 320.8
Output Total 2315 / 2315 65 / 65
Balance -468.7 / -468.7 255.8 / 255.8
SaO2 [SIMV] 99
SaO2 98
Nasal Cannula flow liters per 2
minute
Physical Exam
General: Respiratory Distress (Negative) and Comfortable
HEENT: Normocephalic and Anicteric
Cardiovascular: S1-S2 and Peripheral Edema (Negative)
Respiratory: Wheeze (Negative), Crackles (Bibasilar), Rhonchi (Negative) and Chest Tube (Mediastinal chest tubes x2+ left/right pleural chest tubes)
GI: Soft, Non Distended, Non Tender and Normal Bowel Sounds
Neurology: Awake, Alert and Tremors (Negative)
Skin: Warm, Dry and Jaundice (Negative)
Labs/Micro/Reports
Lab Data
11/18/23 03:18
11/18/23 03:18
Laboratory Results
11/17/23 11/17/23 11/18/23
12:48 16:41 03:18
PT 19.5 H 16.1 H
INR 1.66 1.28
APTT 37.7 H
pH 7.40 7.39
pCO2 38 39
pO2 226 H 150 H
HCO3 23.5 23.6
O2 Delivery Level
[2023-11-18 10:10] LABS: Glucose - Point of Care 165 mg/dl (70-99)
[2023-11-18 12:08] LABS: Glucose - Point of Care 146 mg/dl (70-99)
[2023-11-18] MEDS: FLEXERIL 5 MG PO (12:09)
[2023-11-18] MEDS: NSS IV (12:09)
--- NOTE | 2023-11-18 14:00 | PTCARENOTE ---
OOB all morning to 2pm. Ambulated to bathroom: unable to void: bladder scanned for 106ml once back to bed. Will continue to monitor per bladder scan protocol. NSR. Room air. IS encouraged to 750ml.
[2023-11-18 14:12] LABS: Glucose - Point of Care 155 mg/dl (70-99)
--- NOTE | 2023-11-18 14:18 | W.PN.CARDCBS ---
Today's Communication / Plan
-
Agree with current cardiac meds
Beta-sweta as hemodynamics allow
Consider anticoagulation when safe from a surgical perspective given new diagnosis of atrial fibrillation this admission
Impression / Plan
-
Regional Sales Manager: None prior to admission, initially seen by Dr. JOSIANE Min
Impression:
Presented with headache, dizziness
Paroxysmal atrial fibrillation w/ RVR
NSTEMI, peak Troponin 5.47
CAD with Circ/OM lesions and iFR positive ostial and mid LAD lesions by cath 11/15/23
NSVT
HTN
DM2
HLD
Echo 11/13/2023: EF 50 to 55%, normal RV, mild MR, mild aortic insufficiency, mild TR with PAP 32 mmHg
Post CABG ALEXYS 11/17/23: EF 60-65%
Plan:
-Presented 11/13/2023 with dizziness and GARCÍA and found to be in rapid Afib. Patient then spontaneously converted to SR after Cardizem IV push. ECG in rapid Afib showed T wave inversions that prompted Troponin check and initially Troponin was 0.022 and
then 2.05 and ultimately peaked at 5.47. Patient had cath 11/15/23 with results as noted above w/ MVCAD. Patient was seen by CT surgery and CABG offered.
-s/p CABG x 2 MOISE-LAD; SVG-OM. [facility] MAZE, BRENDA #35mm clip on 11/17/2023
-Post CABG ALEXYS EF 60-65%
-Extubated
-Pressor support with low dose norepi
-Volume status seems reasonable
-Cont ASA/plavix, high intensity statin
-BB as hemodynamics allow
-Currently in sinus rhythm, but in Afib earlier this admission which was a new diagnosis. Consider OAC when safe from surgical perspective.
D/w daughter and at bedside
HPI: Patient is a 78 year old male with PMH of hypertension, hyperlipidemia, and DM2 who presented to [facility] for evaluation of headache and dizziness. He has been in his normal state of health, but shortly after he woke up this morning, he started to
feel off balance and noticed a headache which is atypical for him. He recently moved from [place] and is living w/ family. While in [place], he followed w/ cardiology, however denies history of coronary disease or atrial fibrillation. He reportedly has
been told that he has occasional 'skipped beats,' but further details are unclear. He has not yet established cardiology care locally. On arrival to ER, he was noted to be in rapid atrial fibrillation w/ associated hypotension. He spontaneously
converted to SR after being given a bolus of IV cardizem. He remains in SR currently, however on review of telemetry did have a 12 beat run of NSVT. With this, he was asymptomatic. Labwork returned with initial troponin of 0.022, which trended up to
2.05 on repeat. He remains chest pain free currently and has no acute complaints. Head CT was without abnormality. Cardiology consulted for evaluation.
Progress Note - Regional Sales Manager
Subjective
Date of Service: November 18, 2023
No acute overnight events. Remains in the CVICU, extubated, requiring low-dose norepinephrine for pressor support. No cardiac complaints.
Objective
Labs:
11/18/23 03:18
11/18/23 03:18
Labs
Hgb 9.2 g/dL (13.0-18.0) L 11/18/23 03:18
Hct 25.9 % (39.0-52.0) L 11/18/23 03:18
Plt Count 103 10^3/uL (130-400) L 11/18/23 03:18
PT 16.1 Sec (11.4-14.6) H 11/18/23 03:18
INR 1.28 11/18/23 03:18
APTT 37.7 Sec (23.4-35.0) H 11/17/23 12:48
Sodium 141 mmol/L (135-145) 11/18/23 03:18
Potassium 4.2 mmol/L (3.5-5.1) 11/18/23 03:18
BUN 16 mg/dl (9-20) 11/18/23 03:18
Creatinine 0.7 mg/dL (0.7-1.3) 11/18/23 03:18
Glucose 90 mg/dl (70-99) 11/18/23 03:18
Vital Signs and I&O:
Vital Signs
Temp Pulse Resp BP Pulse Ox
99 F 83 22 91/60 98
11/18/23 07:57 11/18/23 14:08 11/18/23 11:43 11/18/23 14:08 11/18/23 07:57
Vital Signs
Temp Pulse Resp BP Pulse Ox
99 F 83 22 91/60 98
11/18/23 07:57 11/18/23 14:08 11/18/23 11:43 11/18/23 14:08 11/18/23 07:57
Intake & Output
11/16/23 11/17/23 11/18/23 11/19/23
06:59 06:59 06:59 06:59
Intake Total 500 / 500 1846.3 / 1846.3 716.4 / 716.4
Output Total 2315 / 2315 105 / 105
Balance 500 / 500 -468.7 / -468.7 611.4 / 611.4
Physical Exam
Physical Exam
Gen: NAD
HEENT: NC/AT, sclera anicteric
Neck: No JVD
CV: RRR, NL s1/s2, +rub
Lungs: Decreased breath sounds at the bases, supplemental O2 via nasal cannula. Chest tubes with sanguineous drainage.
Abd: S/ND
: Villar with zeke urine.
Ext: No LE edema, warm
Skin: Warm, dry. Sternotomy CDI.
Neuro: Non-focal
[2023-11-18] MEDS: PLAVIX 75 MG PO (14:55)
[2023-11-18] MEDS: MAGNESIUM OXIDE 500 MG PO ×2 (14:55→19:42)
[2023-11-18 16:14] LABS: Glucose - Point of Care 149 mg/dl (70-99)
--- NOTE | 2023-11-18 16:30 | PTCARENOTE ---
Ambulated to bathroom to void 100ml clear zeke urine. Elva Johnson PA-c updated with MAP bp's >60mmhg all shift.
[2023-11-18 18:12] LABS: Glucose - Point of Care 136 mg/dl (70-99)
[2023-11-18 19:31] LABS: Glucose - Point of Care 130 mg/dl (70-99)
[2023-11-18 20:12] LABS: Glucose - Point of Care 160 mg/dl (70-99)
--- NOTE | 2023-11-18 20:20 | PTCARENOTE ---
Assumed care of patient at 1900. Patient found resting in bed at time of assessment with son at bedside. Patient has known language barrier. Patient is AOx4, follows commands appropriately, moves all extremities. Lung sounds are diminished
throughout with shallow respirations, patient is on RA with saO2 at 100%. Patient has CTx4: R/L pleural to one atrium and 2xmeds to one atrium draining red sanguineous. Heart sounds have a regular rate and rhythm, patient is SR on the monitor, there
is a rub present on auscultation. Patient has normal palpable dorsalis pedis pulses and weak radial pulses. Patient has active BS throughout soft nontender abdomen. Patient with small void reported during the day will continue to monitor UOP. There
is a sternal incision with aquacell dressing that is CDI, a LLE incision approx with surg adhesive NEWSCAST DIRECTOR, and L groin puncture approx with surg adhesive NEWSCAST DIRECTOR. Patient has R and L AC PIV insulin gtt infusing through R AC. There is a R IJ cordis
receiving KVO. Patient is stable.
[2023-11-18 21:09] LABS: Glucose - Point of Care 177 mg/dl (70-99)
[2023-11-18] MEDS: SODIUM BICARBONATE 50 MEQ IV (21:10)
--- NOTE | 2023-11-18 21:30 | PTCARENOTE ---
Patient hypotensive SBP<[address] PA aware received orders to administer 1 amp bicarb. Will monitor for improved BPs.
[2023-11-18 22:04] LABS: Glucose - Point of Care 141 mg/dl (70-99)
--- NOTE | 2023-11-18 23:03 | PTCARENOTE ---
Patient with no void in over six hours. Reports no urge to void at this time. Bladder scanned for 248mL. CT PA notified. No orders at this time. Will continue to monitor.
[2023-11-18 23:08] LABS: Glucose - Point of Care 104 mg/dl (70-99)
--- NOTE | 2023-11-18 23:14 | PTCARENOTE ---
Assumed care of patient at 1900. Patient found resting in bed at time of assessment with son at bedside. Patient has known language barrier. Patient is AOx4, follows commands appropriately, moves all extremities. Lung sounds are diminished
throughout with shallow respirations, patient is on RA with saO2 at 100%. Patient has CTx4: R/L pleural to one atrium and 2xmeds to one atrium draining red sanguineous. Heart sounds have a regular rate and rhythm, patient is SR on the monitor, there
is a rub present on auscultation. Patient has normal palpable dorsalis pedis pulses and weak radial pulses. Patient has active BS throughout soft nontender abdomen. Patient with small void reported during the day will continue to monitor UOP. There
is a sternal incision with aquacell dressing that is CDI, a LLE incision approx with surg adhesive OPERATIONS/DISPATCH, and L groin puncture approx with surg adhesive OPERATIONS/DISPATCH. Patient has R and L AC PIV insulin gtt infusing through R AC. There is a R IJ cordis
receiving KVO. Patient is stable.
[2023-11-19] VITALS (23 sets, daily range): BP systolic 91–140; BP diastolic 46–76; BMI 22.5
--- NOTE | 2023-11-19 | PTCARENOTE ---
Patient reassessed. VSS. No c/o pain. Remains SR with BBB on the monitor. Patient is stable.
[2023-11-19 01:02] LABS: Glucose - Point of Care 79 mg/dl (70-99)
[2023-11-19 02:03] LABS: Glucose - Point of Care 81 mg/dl (70-99)
[2023-11-19 03:07] LABS: Glucose - Point of Care 97 mg/dl (70-99)
[2023-11-19 04:00] LABS: Hematocrit 25.5 % (39.0-52.0); Hemoglobin 9.1 g/dL (13.0-18.0); Mean Corp Hgb Conc. 35.7 g/dL (33.0-37.0); Mean Corpuscular Hgb 31.2 pg (27.0-31.0); Mean Corpuscular Volume 87.3 fL (80.0-94.0); Mean Platelet Volume 11.2 fL (7.4-10.4); Platelet Count 103 10^3/uL (130-400); Red Blood Cell Count 2.92 10^6/uL (4.70-6.10); Red Cell Dist. Width 13.8 % (11.5-14.5); White Blood Cell Count 12.5 10^3/uL (4.8-10.8)
--- NOTE | 2023-11-19 04:03 | W.PN.CT ---
Addendum entered and electronically signed by Jaylan Barbour MD 11/19/23 09:02:
I saw and examined the patient.
The PA's note was reviewed and I agree with the note.
Comment:
POD#2 s/p CABG x 2, [facility] MAZE, ELAA
No issues
BP ok, 121/60, HR 85; start low-dose BB
ASA/plavix, amio, lipitor
Hold diuresis today
D/C CTs today
OOB/IS/ambulate
Original Note:
Today's Communication / Plan
-
Plan:
-No major issues overnight. Neurologically and hemodynamically intact
-Off all drips but insulin
-Will d/c insulin gtt and transition to tele phase today per protocol
-Has been hypotensive postop, BB currently remains on hold. BP is improving
-Tachycardia with OOB into chair this AM, increased Amiodarone to 400 TID. Will likely be able to start Toprolol XL 12.5 mg QD tomorrow
-Cont. current meds (ASA, Plavix, Amiodarone, Lipitor; will likely require DOAC on POD#4 given preop A-fib)
-Consider D/C of chest tubes: 2meds 45/95, R/L pleural 45/150
-Will replete K, 3.8
-Maintain cordis another day
-No temporary PW
-Encourage use of IS
-OOB into chair/Ambulate
Assessment / Plan
-
Assessment:
-S/P CABG x 2 (MOISE-LAD, SVG-OM)/[facility] MAZE, ELAA (35 mm Atriclip) by Dr. Barbour, 11/17/23, pod#2
-Presented with headache, dizziness/?TIA
-Paroxysmal atrial fibrillation w/ RVR
-NSTEMI, peak Troponin 5.47
-CAD with Circ/OM lesions and iFR positive ostial and mid LAD lesions by cath 11/15/23
-NSVT
-HTN
-DM2 (AIC 6.7)
-HLD
-S/P lumbar spine surgery
-Acute postop blood loss/Anemia (transfused 1u PRBC)
-Acute postop atelectasis
-Acute postop hypovolemia with subsequent hypervolemia
Discussed patient care with: Cardiology, Nursing, Respiratory Therapy, Pharmacy and Care Team
Subjective
Procedure
S/P CABG x 2 (MOISE-LAD, SVG-OM)/[facility] MUDNO MERCADO (35 mm Atriclip) by Dr. Barbour, 11/17/23
-
Date of Service: November 19, 2023
Pt c/o mild incisional pain, otherwise feels well
Objective Data
-
Lab Results
11/19/23 03:15
PT 16.1 Sec (11.4-14.6) H 11/18/23 03:18
INR 1.28 11/18/23 03:18
APTT 37.7 Sec (23.4-35.0) H 11/17/23 12:48
Vital Signs
Vital Signs
Temp Pulse Resp BP Pulse Ox
97.8 F 88 20 105/61 97
11/18/23 23:09 11/19/23 03:00 11/19/23 01:00 11/19/23 03:00 11/19/23 03:00
CT Intake/Output/Weight
11/18/23 11/18/23 11/19/23
06:59 18:59 06:59
Intake Total 522.8 / 1846.3 962.4 / 1071.4 109.0 / 1071.4
Output Total 730 / 2315 255 / 320 65 / 320
Balance -207.2 / -468.7 707.4 / 751.4 44.0 / 751.4
SaO2: 97 (RA)
Physical Exam
-
General: Awake, Oriented and AOx3
Cardiovascular: Regular rate & rhythm, No Murmurs, No Rub and No Gallop
Respiratory: Decreased Breath Sounds (at bases, otherwise clear)
Sternum: Stable
Incision: Clean, Dry, Intact and Dressing Intact
Extremities: No Edema
Data Reviewed
-
Lab Results: Results Reviewed
Medications: Active Meds Reviewed
Chest X-Ray: Report Reviewed and Image Reviewed
ECG: Report Reviewed and Image Reviewed
[2023-11-19 04:05] LABS: Glucose - Point of Care 69 mg/dl (70-99)
[2023-11-19 04:12] LABS: Blood Urea Nitrogen 23 mg/dl (9-20); Calcium 8.7 mg/dl (8.4-10.2); Carbon Dioxide 25 mmol/L (22-30); Chloride 103 mmol/L (98-107); Estimated Creatinine Clearance 84 ml/min; Glucose 86 mg/dl (70-99); Magnesium 2.2 mg/dl (1.6-2.3); Potassium 3.8 mmol/L (3.5-5.1); Sodium 137 mmol/L (135-145); eGFR > 60.00
[2023-11-19 04:28] LABS: Glucose - Point of Care 106 mg/dl (70-99)
[2023-11-19 05:32] LABS: Glucose - Point of Care 131 mg/dl (70-99)
[2023-11-19] MEDS: TYLENOL 1000 MG PO ×2 (05:53→23:02)
[2023-11-19] MEDS: KCL 40 MEQ PO (05:53)
--- NOTE | 2023-11-19 06:07 | PTCARENOTE ---
Patient reassessed. VSS. No c/o pain. AM hygiene care provided. AM labs obtained. K repleted. Remains SR on the monitor. OOB to chair without incident. Successful void of 250mL. Scanned PVR of 161. Patient is stable.
[2023-11-19 06:30] LABS: Glucose - Point of Care 112 mg/dl (70-99)
[2023-11-19 08:07] LABS: Glucose - Point of Care 86 mg/dl (70-99)
[2023-11-19] MEDS: NOVOLOG FLEXPEN SC (08:10)
[2023-11-19] MEDS: BACTROBAN 2% OINTMENT 1 APPLIC NASAL ×2 (08:18→19:38)
[2023-11-19] MEDS: PROTONIX 40 MG PO (08:18)
[2023-11-19] MEDS: LOW STRENGTH ASPIRIN 81 MG PO (08:18)
[2023-11-19] MEDS: PLAVIX 75 MG PO (08:18)
[2023-11-19] MEDS: NEURONTIN 100 MG PO ×3 (08:19→23:02)
[2023-11-19] MEDS: LIPITOR 40 MG PO (08:19)
[2023-11-19] MEDS: MAGNESIUM OXIDE 500 MG PO ×2 (08:19→19:37)
[2023-11-19] MEDS: PACERONE 400 MG PO ×3 (08:19→23:02)
[2023-11-19] MEDS: LIDOCAINE 4% PATCH 1 PATCH TOPICAL (08:19)
[2023-11-19] MEDS: SENOKOT-S PO ×2 (08:20→19:37)
[2023-11-19 09:21] LABS: Glucose - Point of Care 88 mg/dl (70-99)
--- NOTE | 2023-11-19 09:44 | W.PN.INTV ---
Today's Communication / Plan
Recommendations
Up OOB as tolerated
Pain control
Encourage incentive spirometer use - 10x per hour for at least 4 hours a day
Cardiac rehab consult
Goal BG 140-180
Patient is now CVICU�telemetry status. Media Relations Specialist/Pulmonary service will now sign off. Please reconsult if there are any additional questions/concerns, or if patient's respiratory status deteriorates.
Assessment
-
Assessment: 78-year-old male nontobacco smoker with a PMHx of hypertension, hyperlipidemia and DM type II who presents with generalized weakness with bodyaches and headache. In the ER he was found to be in rapid A-fib with heart rate in the
140�150s. He was saturating 99% on room air, was afebrile to 98.3 �F, and was tachypneic to 24-26 breaths/min. BP was low in the 70�80s/40�50s. Initial labs showed Hb 13.2, initial troponin negative at 0.022 however the repeat yemi to 2.05, TSH
was elevated at 5.58 but free T4 was WNL at 1.15. A CT of the head due to headache and body aches was done showing no acute intracranial abnormality. IVF with NS 0.9% x 1.5L given, in addition to cardizem 5mg IVP x1 which converted the patient
back to NSR. Cardiology was consulted, heparin gtt was started and patient was admitted to telemetry for further management. After converting to NSR he had a run of NSVT/AIVR. EKG showed lateral ST depressions and then T wave versions. There was
concern for underlying CAD and patient went for left heart catheterization on 11/14 showing two-vessel CAD involving the ostial LAD and normal LVEDP at 14 mmHg. Given his history of diabetes cardiothoracic surgery was consulted for surgical
revascularization. On 11/17/2023 he underwent CABG x 2 with MAZE and BRENDA-exclusion with a #35mm clip. Patient tolerated this procedure well and was transferred to the CVICU postoperatively with critical care services consulted for additional
management/recommendations.
Chronic conditions FUNERAL PRE ARRANGEMENT COUNSELOR: Hypertension, hyperlipidemia, DM type II
Impression:
#NSTEMI with multivessel CAD s/p CABG x 2 with MAZE + BRENDA-exclusion with #35mm clip - POD#2
#Acute anemia s/p 1 unit PRBC transfusion on 11/17/2023 - Hb stable
#Acute thrombocytopenia - stable
#DM type II (HbA1C: 6.7)
#HTN
Plan:
Patient successfully extubated to 6 L/min nasal cannula on 11/17/2023 patient now breathing comfortably on room air
Maintain SpO2 >90-94%
prn nebulized bronchodilators
Encourage incentive spirometer use 10x/hr for at least 4 hrs a day
Pulmonary artery catheter removed
Removal of right IJ cordis per cardiothoracic surgery team
Maintain MAP>65
Replete electrolytes with K>4, Mg>2
All chest tubes removed as of today
Monitor hemoglobin
Monitor platelet count and coags
Transfuse blood product if needed to keep Hb>8g/dL and plt>50k
Monitor blood sugar with goal BG 140-180
Continue SQ insulin supplementation as needed to maintain BG goal as above
Aspiration precautions
DVT prophylaxis
Early nutrition
Early mobilization
Patient is now CVICU�telemetry status. Media Relations Specialist/Pulmonary service will now sign off. Thank you for allowing us to be involved in the care of this patient. Please reconsult if there are any additional questions/concerns, or if patient's
respiratory status deteriorates.
Total time spent today was 55 minutes for this encounter. Time includes reviewing laboratory test/imaging results, reviewing pertinent medical records, obtaining and reviewing medical history, performing an appropriate exam, ordering medications,
tests and procedures. Time also includes documentation of this encounter, coordinating patient care and communicating with other healthcare professionals. Total time does not include separately billed tests performed on this date of service.
Data:
CXR 11-19-2023:
1. Postoperative from CABG surgery with bilateral chest tubes remaining in place.
2. Moderate bilateral lower lobe opacity which is most likely postoperative atelectasis.
3. Suspected minimal bilateral pleural effusions.
4. Previous left-sided instrumentation in the midthoracic spine.
CXR 11-18-2023:
1. Interval extubation since 11/17/2023.
2. Postoperative from CABG surgery with mediastinal and bilateral pleural chest tubes remaining in place.
3. Mildly to moderately decreased bilateral lung volumes with a moderate amount of postoperative atelectasis in the lower lobes and suspected minimal bilateral pleural effusions.
4. Mild cardiomegaly.
CT Chest w/o contrast 11-16-2023:
Linear densities within the lower lungs, compatible with linear atelectasis and/or scarring.
There is no significant pleural effusion and no significant pericardial effusion.
Mild to moderate calcification involving the aortic arch, descending thoracic aorta, and upper abdominal aorta. No evidence for aortic aneurysm.
Dense coronary artery calcifications are noted.
In the upper abdomen, hypertrophy of the lateral segment of the left lobe of the liver with relative atrophy of the medial segment. This morphologic change has been described as an early sign of cirrhosis, and please correlate with any risk factors
for the development of cirrhosis.
Brain MRI 11-15-2023:
No evidence of acute intracranial abnormality.
On sagittal T1-weighted gradient echo sequence, there is suggestion of significant compression of the cervical spinal cord at the C3-4 level. As warranted, further evaluation with MRI of the cervical spine could be performed.
Partially empty sella. This is often an incidental finding of no clinical significance, although it does have an association with idiopathic intracranial hypertension. Many patients are asymptomatic and endocrinologically normal, although with some
increasing reports of variable hypopituitarism and hyperprolactinemia.
Cardiac Studies:
[facility] 11-15-2023:
CONCLUSIONS:
1. Significant two-vessel coronary artery disease involving the left circumflex/OM system which is the culprit of presenting NSTEMI and ostial plus mid LAD (IFR positive at 0.87 and 0.82, respectively).
2. Normal LVEDP.
RECOMMENDATIONS:
1. In the setting of known diabetes with two-vessel coronary artery disease involving the ostial LAD, will refer to CT surgery for coronary artery bypass grafting to LAD, left circumflex/OM system.
2. Aggressive management of cardiovascular risk factors.
3. Continue management of presenting NSTEMI and paroxysmal atrial fibrillation.
4. Eventual referral for outpatient cardiac rehab
Intra-operative ALEXYS 11-17-2023:
Low normal left ventricular systolic function, mild lateral hypokinesia. Stage I diastolic dysfunction.
Mild aortic regurgitation.
The aorta has atheroma less than 5 mm and mild to moderate concentric calcifications.
Trivial to mild mitral regurgitation.
Trace tricuspid regurgitation.
TTE 11-13-2023:
1. Left ventricle: Normal size and low normal systolic function estimated 50-
55% by volumetric assessment
2. Right ventricle: Normal
3. Atria: Normal
4. Mitral valve: Mild mitral regurgitation
5. Aortic valve: Mild aortic insufficiency
6. Tricuspid valve: Mild tricuspid regurgitation with mild pulmonary
hypertension and estimated pulmonary artery systolic pressures of 32 mmHg
7. No prior studies for comparison
Subjective Dataa
Subjective Data
Date of Service:
Date of Service: November 19, 2023
Chief Complaint: Media Relations Specialist Follow Up
Subjective:
Patient seen and evaluated at bedside. He is on room air breathing comfortably. All chest tubes have been removed today. Heart rate 98 and SpO2 95%. I spoke to the patient's son and answered all of his questions. Patient denies headache,
abdominal pain, fevers or chills.
Review of Systems
General: Other (Negative less mentioned above)
Objective Data
Data Reviewed
Vital Signs / I&O / Oxygen:
Vital Signs
Temp Pulse Resp BP Pulse Ox
97.9 F 86 20 119/59 96
11/19/23 08:00 11/19/23 09:00 11/19/23 08:00 11/19/23 09:00 11/19/23 08:00
Intake and Output
11/18/23 11/19/23 11/20/23
06:59 06:59 06:59
Intake Total 1846.3 / 1846.3 1093.4 / 1093.4 211.2 / 211.2
Output Total 2315 / 2315 630 / 630 70 / 70
Balance -468.7 / -468.7 463.4 / 463.4 141.2 / 141.2
SaO2 [SIMV] 99
SaO2 96
Nasal Cannula flow liters per 2
minute
Physical Exam
General: Respiratory Distress (Negative) and Comfortable
HEENT: Normocephalic, Anicteric and Other (R-IJ cordis in place covered with Tegaderm)
Cardiovascular: S1-S2 and Peripheral Edema (Negative)
Respiratory: Wheeze (Negative), Crackles (Bibasilar) and Rhonchi (Negative)
GI: Soft, Non Distended, Non Tender and Normal Bowel Sounds
Neurology: Awake, Alert and Tremors (Negative)
Skin: Warm, Dry and Jaundice (Negative)
Labs/Micro/Reports
Lab Data
11/19/23 03:15
11/19/23 03:15
[2023-11-19] MEDS: LOPRESSOR 12.5 MG PO ×2 (10:47→19:37)
--- NOTE | 2023-11-19 11:00 | PTCARENOTE ---
Assisted patient back to bed. Med chest tubes dc Left and right pleural chest tubes dc by Elva CORONA. Son at bedside for translation of Bailey to Tamil
[2023-11-19 11:21] LABS: Glucose - Point of Care 94 mg/dl (70-99)
[2023-11-19 12:38] LABS: Glucose - Point of Care 152 mg/dl (70-99)
[2023-11-19] MEDS: NOVOLOG FLEXPEN 2 UNITS SC (12:39)
[2023-11-19 13:22] LABS: Glucose - Point of Care 155 mg/dl (70-99)
[2023-11-19] MEDS: NSS 500 IV (16:49)
[2023-11-19] MEDS: TYLENOL PO (16:50)
[2023-11-19] MEDS: NOVOLOG FLEXPEN-MODERATE RESISTANCE SC (18:19)
[2023-11-19 18:20] LABS: Glucose - Point of Care 144 mg/dl (70-99)
--- NOTE | 2023-11-19 19:24 | PTCARENOTE ---
Ambbulated x 2 in hallway today: 150 feet each on room air. NSR. Vitals stable,
--- NOTE | 2023-11-19 19:53 | PTCARENOTE ---
assumed care of patient @ 1900. received pt sitting in chair, assisted back to bed. Aox3, limited armenian, son in room to help translate. afebrile, no c/o pain or nausea. NSR on monitor HR 80s-90s. Lungs diminished, taking shallow breaths, IS only
500, needs coaching. reported multiple loose stools in AM, held PM stool softener. Voiding spontaneously. sternal aquacel CDI, L SVG site bruised FAWAD CDI. R IJ cordis and PIV x2 patent. pt resting in bed comfortably with call pandya within reach .
[2023-11-19 23:07] LABS: Glucose - Point of Care 189 mg/dl (70-99)
--- NOTE | 2023-11-19 23:17 | PTCARENOTE ---
bladder scan 438 - assisted to toilet, voided in toilet PVR 137. now resting comfortably in bed, no change in assessment.
[2023-11-20] VITALS (16 sets, daily range): BP systolic 83–127; BP diastolic 41–69; PULSE 85; O2SAT 98–99; BMI 22.8
--- NOTE | 2023-11-20 03:41 | W.PN.CT ---
Addendum entered and electronically signed by Jaylan Barbour MD 11/20/23 16:20:
I saw and examined the patient.
The PA's note was reviewed and I agree with the note.
Comment:
Doing well
Continued postoperative mgmt
D/C planning for Monday AM
Original Note:
Today's Communication / Plan
-
Plan:
-No major issues overnight. Neurologically and hemodynamically intact
-Off all drips
-BP has been soft postop, noted to be tachycardic with ambulation postop. Tolerated initiation of low dose BB yesterday 11/18. Amiodarone currently @ 400 mg TID
-Cont. current meds (ASA, Plavix, Amiodarone, Toprol XL, Lipitor; will likely require DOAC on POD#4 given preop A-fib)
-F/U portable CXR
-D/C cordis
-No temporary PW
-Encourage use of IS
-OOB into chair/Ambulate
-Home likely tomorrow
Assessment / Plan
-
Assessment:
-S/P CABG x 2 (MOISE-LAD, SVG-OM)/[facility] MAZE, ELAA (35 mm Atriclip) by Dr. Barbour, 11/17/23, pod#3
-Presented with headache, dizziness/?TIA
-Paroxysmal atrial fibrillation w/ RVR
-NSTEMI, peak Troponin 5.47
-CAD with Circ/OM lesions and iFR positive ostial and mid LAD lesions by cath 11/15/23
-NSVT
-HTN
-DM2 (AIC 6.7)
-HLD
-S/P lumbar spine surgery
-Acute postop blood loss/Anemia (transfused 1u PRBC)
-Acute postop atelectasis
-Acute postop hypovolemia with subsequent hypervolemia
-Acute postop tachycardia/hypotension
Discussed patient care with: Cardiology, Nursing, Respiratory Therapy, Pharmacy and Care Team
Subjective
Procedure
CABG x 2 (MOISE-LAD, SVG-OM)/MUNDO Gomes (35 mm Atriclip) by Dr. Barbour, 11/17/23
-
Date of Service: November 20, 2023
Pt c/o mild incisional pain, otherwise feels well. Has been ambulating halls
Objective Data
-
PT 16.1 Sec (11.4-14.6) H 11/18/23 03:18
INR 1.28 11/18/23 03:18
APTT 37.7 Sec (23.4-35.0) H 11/17/23 12:48
Vital Signs
Vital Signs
Temp Pulse Resp BP Pulse Ox
97.7 F 85 16 107/60 95
11/19/23 23:17 11/19/23 23:17 11/19/23 23:17 11/19/23 23:01 11/19/23 23:17
CT Intake/Output/Weight
11/19/23 11/19/23 11/20/23
06:59 18:59 06:59
Intake Total 131.0 / 1093.4 601.2 / 1081.2 480 / 1081.2
Output Total 375 / 630 70 / 70
Balance -244.0 / 463.4 531.2 / 1011.2 480 / 1011.2
SaO2: 95 (RA)
Physical Exam
-
General: Awake, Oriented and AOx3
Cardiovascular: Regular rate & rhythm, No Murmurs, No Rub and No Gallop
Respiratory: Decreased Breath Sounds (at bases, otherwise clear)
Incision: Clean, Dry, Intact and Dressing Intact
Extremities: No Edema
Data Reviewed
-
Lab Results: Results Reviewed
Medications: Active Meds Reviewed
Chest X-Ray: Report Reviewed and Image Reviewed
ECG: Report Reviewed and Image Reviewed
[2023-11-20 04:16] LABS: Hematocrit 25.5 % (39.0-52.0); Hemoglobin 9.1 g/dL (13.0-18.0); Mean Corp Hgb Conc. 35.7 g/dL (33.0-37.0); Mean Corpuscular Volume 86.7 fL (80.0-94.0); Platelet Count 120 10^3/uL (130-400); Red Blood Cell Count 2.94 10^6/uL (4.70-6.10); Red Cell Dist. Width 13.2 % (11.5-14.5); White Blood Cell Count 12.4 10^3/uL (4.8-10.8)
--- NOTE | 2023-11-20 04:16 | PTCARENOTE ---
labs drawn and sent. BP low 80s/40s - pt asymptomatic resting in bed. CTPA notified, will recheck at 0500
[2023-11-20 04:33] LABS: Blood Urea Nitrogen 24 mg/dl (9-20); Carbon Dioxide 25 mmol/L (22-30); Chloride 103 mmol/L (98-107); Estimated Creatinine Clearance 100 ml/min; Glucose 122 mg/dl (70-99); Potassium 3.9 mmol/L (3.5-5.1); Sodium 134 mmol/L (135-145); eGFR > 60.00
[2023-11-20] MEDS: CALCIUM CHLORIDE 10% SYRINGE 60 MG IV (05:00)
[2023-11-20] MEDS: KCL 40 MEQ PO (05:11)
[2023-11-20] MEDS: TYLENOL 1000 MG PO ×2 (05:11→20:34)
--- NOTE | 2023-11-20 07:00 | PTCARENOTE ---
Bedside walking rounds report received. Patient is awake alert and oriented x 3: son at bedside to translate Czech to Tramil for patient for increased understanding and effective communication. Patient is in NSR on monitor. Plan: increase
ambulation and oob time and dc cordis.
[2023-11-20] MEDS: BACTROBAN 2% OINTMENT 1 APPLIC NASAL ×2 (07:48→20:34)
[2023-11-20] MEDS: NOVOLOG FLEXPEN-MODERATE RESISTANCE SC ×2 (07:53→12:17)
[2023-11-20 07:54] LABS: Glucose - Point of Care 136 mg/dl (70-99)
[2023-11-20] MEDS: LIDOCAINE 4% PATCH 1 PATCH TOPICAL (08:02)
[2023-11-20] MEDS: NEURONTIN 100 MG PO ×3 (08:03→20:33)
[2023-11-20] MEDS: LIPITOR 40 MG PO (08:03)
[2023-11-20] MEDS: MAGNESIUM OXIDE 500 MG PO ×2 (08:03→20:34)
[2023-11-20] MEDS: PROTONIX 40 MG PO (08:03)
[2023-11-20] MEDS: TOPROL XL 12.5 MG PO ×2 (08:03→20:34)
[2023-11-20] MEDS: LOW STRENGTH ASPIRIN 81 MG PO (08:04)
[2023-11-20] MEDS: PACERONE 400 MG PO ×3 (08:04→20:33)
[2023-11-20] MEDS: PLAVIX 75 MG PO (08:04)
[2023-11-20] MEDS: SENOKOT-S PO (08:04)
--- NOTE | 2023-11-20 10:52 | W.PN.CARDCBS ---
Today's Communication / Plan
-
Plan:
-Presented 11/13/2023 with dizziness and GARCÍA and found to be in rapid Afib. Patient then spontaneously converted to SR after Cardizem IV push. ECG in rapid Afib showed T wave inversions that prompted Troponin check and initially Troponin was 0.022 and
then 2.05 and ultimately peaked at 5.47. Patient had cath 11/15/23 with results as noted above w/ MVCAD. Patient was seen by CT surgery and CABG offered.
-s/p CABG x 2 MOISE-LAD; SVG-OM. Encompass MAZE, BRENDA #35mm clip on 11/17/[address] Jaylan Barbour
-Post CABG ALEXYS EF 60-65%
-Cont ASA/plavix, high intensity statin. Monitor blood counts and renal function.
-BB as hemodynamics allow
-Currently in sinus rhythm, but in Afib earlier this admission which was a new diagnosis. Consider OAC when safe from surgical perspective. Eventual plan for plavix and eliquis in setting of ACS on presentation.
Impression / Plan
-
Imaging System Administrator: None prior to admission, initially seen by Dr. JOSIANE Min
Impression:
Presented with headache, dizziness
Paroxysmal atrial fibrillation w/ RVR
NSTEMI, peak Troponin 5.47
CAD with Circ/OM lesions and iFR positive ostial and mid LAD lesions by cath 11/15/23
NSVT
HTN
DM2
HLD
Echo 11/13/2023: EF 50 to 55%, normal RV, mild MR, mild aortic insufficiency, mild TR with PAP 32 mmHg
Post CABG ALEXYS 11/17/23: EF 60-65%
Plan:
-Presented 11/13/2023 with dizziness and GARCÍA and found to be in rapid Afib. Patient then spontaneously converted to SR after Cardizem IV push. ECG in rapid Afib showed T wave inversions that prompted Troponin check and initially Troponin was 0.022 and
then 2.05 and ultimately peaked at 5.47. Patient had cath 11/15/23 with results as noted above w/ MVCAD. Patient was seen by CT surgery and CABG offered.
-s/p CABG x 2 MOISE-LAD; SVG-OM. Encompass MAZE, BRENDA #35mm clip on 11/17/[address] Jaylan Barbour
-Post CABG ALEXYS EF 60-65%
-Cont ASA/plavix, high intensity statin. Monitor blood counts and renal function.
-BB as hemodynamics allow
-Currently in sinus rhythm, but in Afib earlier this admission which was a new diagnosis. Consider OAC when safe from surgical perspective. Eventual plan for plavix and eliquis in setting of ACS on presentation.
HPI: Patient is a 78 year old male with PMH of hypertension, hyperlipidemia, and DM2 who presented to [facility] for evaluation of headache and dizziness. He has been in his normal state of health, but shortly after he woke up this morning, he started to
feel off balance and noticed a headache which is atypical for him. He recently moved from [facility] and is living w/ family. While in [facility], he followed w/ cardiology, however denies history of coronary disease or atrial fibrillation. He reportedly has
been told that he has occasional 'skipped beats,' but further details are unclear. He has not yet established cardiology care locally. On arrival to ER, he was noted to be in rapid atrial fibrillation w/ associated hypotension. He spontaneously
converted to SR after being given a bolus of IV cardizem. He remains in SR currently, however on review of telemetry did have a 12 beat run of NSVT. With this, he was asymptomatic. Labwork returned with initial troponin of 0.022, which trended up to
2.05 on repeat. He remains chest pain free currently and has no acute complaints. Head CT was without abnormality. Cardiology consulted for evaluation.
Progress Note - Imaging System Administrator
Subjective
Date of Service: November 20, 2023
OOB in chair. Overall doing well without major complaints.
Objective
Labs:
11/20/23 04:05
11/20/23 04:05
Labs
Hgb 9.1 g/dL (13.0-18.0) L 06/10/24 04:05
Hct 25.5 % (39.0-52.0) L 11/20/23 04:05
Plt Count 120 10^3/uL (130-400) L 11/20/23 04:05
PT 16.1 Sec (11.4-14.6) H 11/18/23 03:18
INR 1.28 11/18/23 03:18
APTT 37.7 Sec (23.4-35.0) H 11/17/23 12:48
Sodium 134 mmol/L (135-145) L 11/20/23 04:05
Potassium 3.9 mmol/L (3.5-5.1) 11/20/23 04:05
BUN 24 mg/dl (9-20) H 11/20/23 04:05
Creatinine 0.6 mg/dL (0.7-1.3) L 11/20/23 04:05
Glucose 122 mg/dl (70-99) H 11/20/23 04:05
Vital Signs and I&O:
Vital Signs
Temp Pulse Resp BP Pulse Ox
98.6 F 84 20 123/60 98
11/20/23 07:45 11/20/23 07:45 11/20/23 07:45 11/20/23 07:45 11/20/23 07:45
Vital Signs
Temp Pulse Resp BP Pulse Ox
98.6 F 84 20 123/60 98
11/20/23 07:45 11/20/23 07:45 11/20/23 07:45 11/20/23 07:45 11/20/23 07:45
Intake & Output
11/18/23 11/19/23 11/20/23 11/21/23
06:59 06:59 06:59 06:59
Intake Total 1846.3 / 1846.3 1093.4 / 1093.4 1081.2 / 1081.2
Output Total 2315 / 2315 630 / 630 70 / 70
Balance -468.7 / -468.7 463.4 / 463.4 1011.2 / 1011.2
Physical Exam
Physical Exam
Gen: NAD
HEENT: NC/AT, sclera anicteric
Neck: No JVD
CV: RRR, NL s1/s2, +rub
Lungs: Decreased breath sounds at the bases, supplemental O2 via nasal cannula.
Abd: S/ND
: Villar with zeke urine.
Ext: No LE edema, warm
Skin: Warm, dry. Sternotomy CDI.
Neuro: Non-focal
[2023-11-20] MEDS: NSS IV (11:09)
--- NOTE | 2023-11-20 12:00 | PTCARENOTE ---
No acute changes. Vitals stable. OOB in chair. Family here.
[2023-11-20 12:19] LABS: Glucose - Point of Care 126 mg/dl (70-99)
[2023-11-20] MEDS: TYLENOL PO (15:09)
--- NOTE | 2023-11-20 15:09 | PTCARENOTE ---
Ambulated 225ft with guidance/supervision on room air. See flowreord for post activity vitals. NSR
--- NOTE | 2023-11-20 16:44 | CM ---
dc plans remain home when medically stable and f/u visit from ct transitional care nurse
[2023-11-20] MEDS: NOVOLOG FLEXPEN-MODERATE RESISTANCE 1 UNITS SC (18:33)
[2023-11-20 18:35] LABS: Glucose - Point of Care 190 mg/dl (70-99)
--- NOTE | 2023-11-20 20:00 | PTCARENOTE ---
assumed care of patient @1900. received pt sitting in chair, AOX3. language barrier. assisted back to bed. Vitals stable on room air. NSR on monitor HR 80s. Lungs diminished, clear on room air. taking shallow breaths. IS ~ 500. belly soft,
nontender. voiding spontaneously in bathroom. sternal aquacel CDI. L SVG site PRODUCTION GENERALIST CDI. PIV x2 patent. resting comfortably in bed with call pandya within reach .
[2023-11-20] MEDS: SENOKOT-S 1 TABLET PO (20:33)
[2023-11-20 20:40] LABS: Glucose - Point of Care 228 mg/dl (70-99)
[2023-11-21] VITALS (10 sets, daily range): BP systolic 104–121; BP diastolic 48–76; PULSE 84; O2SAT 99–100; BMI 22.5
--- NOTE | 2023-11-21 01:11 | PTCARENOTE ---
resting comfortably, no change in assessment
--- NOTE | 2023-11-21 03:00 | PTCARENOTE ---
resting comfortably, no change in assessment .
[2023-11-21 03:56] LABS: Hematocrit 29.4 % (39.0-52.0); Hemoglobin 10.3 g/dL (13.0-18.0); Mean Corpuscular Hgb 31.4 pg (27.0-31.0); Mean Corpuscular Volume 89.6 fL (80.0-94.0); Mean Platelet Volume 10.1 fL (7.4-10.4); Platelet Count 147 10^3/uL (130-400); Red Blood Cell Count 3.28 10^6/uL (4.70-6.10); Red Cell Dist. Width 13.2 % (11.5-14.5)
[2023-11-21 04:20] LABS: Blood Urea Nitrogen 17 mg/dl (9-20); Calcium 8.4 mg/dl (8.4-10.2); Carbon Dioxide 26 mmol/L (22-30); Chloride 104 mmol/L (98-107); Estimated Creatinine Clearance 101 ml/min; Glucose 123 mg/dl (70-99); Magnesium 2.1 mg/dl (1.6-2.3); Potassium 4.2 mmol/L (3.5-5.1); Sodium 134 mmol/L (135-145); eGFR > 60.00
--- NOTE | 2023-11-21 04:32 | W.PN.CT ---
Today's Communication / Plan
-
Plan:
-No major issues overnight. Neurologically and hemodynamically intact
-Off all drips
-BP has been soft postop, noted to be tachycardic with ambulation postop. Tolerated initiation of low dose BB. Amiodarone currently @ 400 mg TID
-Cont. current meds (ASA, Plavix, Amiodarone, Toprol XL, Lipitor)
-Cardiology recommending home on Plavix and DOAC/NOAC given preop A-fib. Of note pt received LAAE and has not had any a-fib postop
-F/U 2-view cxr
-No temporary PW
-Encourage use of IS
-OOB into chair/Ambulate
-Home likely tomorrow
Assessment / Plan
-
Assessment:
-S/P CABG x 2 (MOISE-LAD, SVG-OM)/Encompass MAZE, ELAA (35 mm Atriclip) by Dr. aBrbour, 11/17/23, pod#4
-Presented with headache, dizziness/?TIA
-Paroxysmal atrial fibrillation w/ RVR
-NSTEMI, peak Troponin 5.47
-CAD with Circ/OM lesions and iFR positive ostial and mid LAD lesions by cath 11/15/23
-NSVT
-HTN
-DM2 (AIC 6.7)
-HLD
-S/P lumbar spine surgery
-Acute postop blood loss/Anemia (transfused 1u PRBC)
-Acute postop atelectasis
-Acute postop hypovolemia with subsequent hypervolemia
-Acute postop tachycardia/hypotension
Discussed patient care with: Cardiology, Nursing, Respiratory Therapy, Pharmacy and Care Team
Subjective
Procedure
CABG x 2 (MOISE-LAD, SVG-OM)/Encompass MAZE, ELAA (35 mm Atriclip) by Dr. Barbour, 11/17/23
-
Date of Service: November 21, 2023
Pt c/o mild incisional pain, otherwise feels well
Objective Data
-
Lab Results
11/21/23 03:47
11/21/23 03:47
PT 16.1 Sec (11.4-14.6) H 11/18/23 03:18
INR 1.28 11/18/23 03:18
APTT 37.7 Sec (23.4-35.0) H 11/17/23 12:48
Vital Signs
Vital Signs
Temp Pulse Resp BP Pulse Ox
97.8 F 76 16 124/66 95
11/21/23 00:30 11/20/23 23:00 11/21/23 00:30 11/20/23 20:26 11/21/23 00:30
CT Intake/Output/Weight
11/20/23 11/20/23 11/21/23
06:59 18:59 06:59
Intake Total 480 / 1081.2 345 / 825 480 / 825
Balance 480 / 1011.2 345 / 825 480 / 825
SaO2: 95 (RA)
Physical Exam
-
General: Awake, Oriented and AOx3
Cardiovascular: Regular rate & rhythm, No Murmurs, No Rub and No Gallop
Respiratory: Decreased Breath Sounds (at bases, otherwise clear)
Sternum: Stable
Incision: Clean, Dry, Intact and Dressing Intact
Extremities: No Edema
Data Reviewed
-
Lab Results: Results Reviewed
Medications: Active Meds Reviewed
Chest X-Ray: Report Reviewed and Image Reviewed
ECG: Report Reviewed and Image Reviewed
[2023-11-21] MEDS: TYLENOL 1000 MG PO ×3 (07:04→21:13)
[2023-11-21 07:49] LABS: Glucose - Point of Care 117 mg/dl (70-99)
[2023-11-21] MEDS: NOVOLOG FLEXPEN-MODERATE RESISTANCE SC ×3 (07:51→17:18)
[2023-11-21] MEDS: LIDOCAINE 4% PATCH TOPICAL (08:07)
[2023-11-21] MEDS: SENOKOT-S 1 TABLET PO ×2 (08:27→21:13)
[2023-11-21] MEDS: NEURONTIN 100 MG PO ×3 (08:27→21:13)
[2023-11-21] MEDS: PLAVIX 75 MG PO (08:27)
[2023-11-21] MEDS: BACTROBAN 2% OINTMENT 1 APPLIC NASAL (08:27)
[2023-11-21] MEDS: MAGNESIUM OXIDE 500 MG PO ×2 (08:27→21:13)
[2023-11-21] MEDS: PROTONIX 40 MG PO (08:28)
[2023-11-21] MEDS: LOW STRENGTH ASPIRIN 81 MG PO (08:28)
[2023-11-21] MEDS: LIPITOR 40 MG PO (08:28)
[2023-11-21] MEDS: NSS IV (08:28)
[2023-11-21] MEDS: TOPROL XL 12.5 MG PO ×2 (08:33→21:13)
[2023-11-21] MEDS: PACERONE 400 MG PO ×3 (08:33→21:13)
--- NOTE | 2023-11-21 09:33 | PTCARENOTE ---
Patient received from pulling machine operator resting oob in chair, AAO x 3, denies pain. NSR via cm, SaO2 @ 97% on RA. Patient primarily Tamil speaking, able to make needs known. All procedural sites stable. Patient updated to plan of care, in agreement. See
work list for full assessment and interventions performed.
[2023-11-21 12:09] LABS: Glucose - Point of Care 129 mg/dl (70-99)
--- NOTE | 2023-11-21 12:17 | PTCARENOTE ---
VS obtained, assessment stable. Patient oob, resting comfortably, denies pain. Family at bedside.
--- NOTE | 2023-11-21 13:26 | W.PN.CARDCBS ---
Today's Communication / Plan
-
Stable cardiology status
Remains in sinus rhythm
Consider Eliquis in addition to Plavix given A-fib during admission which has spontaneously converted to sinus rhythm
Patient does have left atrial appendage clip but EP recommends anticoagulation
Impression / Plan
-
Lye Machine Operator: None prior to admission, initially seen by Dr. JOSIANE Min
Impression:
s/p CABG x 2 MOISE-LAD; SVG-OM. Encompass MAZE, BRENDA #35mm clip on 11/17/[address] Jaylan Barbour
Presented with headache, dizziness
Paroxysmal atrial fibrillation w/ RVR�converted to sinus rhythm
NSTEMI, peak Troponin 5.47
CAD with Circ/OM lesions and iFR positive ostial and mid LAD lesions by cath 11/15/23
NSVT
HTN
DM2
HLD
Echo 11/13/2023: EF 50 to 55%, normal RV, mild MR, mild aortic insufficiency, mild TR with PAP 32 mmHg
Post CABG ALEXYS 11/17/23: EF 60-65%
Plan:
He continues to do very well status post two-vessel CABG on 11/16
He remains in sinus rhythm
Was in Afib earlier this admission which was a new diagnosis. Consider OAC when safe from surgical perspective. Eventual plan for plavix and eliquis in setting of ACS on presentation.
However patient is status post left atrial appendage clip and perhaps Eliquis could be avoided�ALEXYS report with no flow seen through left atrial appendage remnant
EP recommends anticoagulation
HPI: Patient is a 78 year old male with PMH of hypertension, hyperlipidemia, and DM2 who presented to [facility] for evaluation of headache and dizziness. He has been in his normal state of health, but shortly after he woke up this morning, he started to
feel off balance and noticed a headache which is atypical for him. He recently moved from [place] and is living w/ family. While in [place], he followed w/ cardiology, however denies history of coronary disease or atrial fibrillation. He reportedly has
been told that he has occasional 'skipped beats,' but further details are unclear. He has not yet established cardiology care locally. On arrival to ER, he was noted to be in rapid atrial fibrillation w/ associated hypotension. He spontaneously
converted to SR after being given a bolus of IV cardizem. He remains in SR currently, however on review of telemetry did have a 12 beat run of NSVT. With this, he was asymptomatic. Labwork returned with initial troponin of 0.022, which trended up to
2.05 on repeat. He remains chest pain free currently and has no acute complaints. Head CT was without abnormality. Cardiology consulted for evaluation.
Progress Note - Lye Machine Operator
Subjective
Date of Service: November 21, 2023
No complaints.
Objective
Labs:
11/21/23 03:47
11/21/23 03:47
Labs
Hgb 10.3 g/dL (13.0-18.0) L 11/21/23 03:47
Hct 29.4 % (39.0-52.0) L 11/21/23 03:47
Plt Count 147 10^3/uL (130-400) D 11/21/23 03:47
PT 16.1 Sec (11.4-14.6) H 11/18/23 03:18
INR 1.28 11/18/23 03:18
APTT 37.7 Sec (23.4-35.0) H 11/17/23 12:48
Sodium 134 mmol/L (135-145) L 11/21/23 03:47
Potassium 4.2 mmol/L (3.5-5.1) 11/21/23 03:47
BUN 17 mg/dl (9-20) 11/21/23 03:47
Creatinine 0.6 mg/dL (0.7-1.3) L 11/21/23 03:47
Glucose 123 mg/dl (70-99) H 11/21/23 03:47
Vital Signs and I&O:
Vital Signs
Temp Pulse Resp BP Pulse Ox
98.7 F 85 16 121/68 97
11/21/23 08:30 11/21/23 12:04 11/21/23 08:30 11/21/23 12:04 11/21/23 09:29
Vital Signs
Temp Pulse Resp BP Pulse Ox
98.7 F 85 16 121/68 97
11/21/23 08:30 11/21/23 12:04 11/21/23 08:30 11/21/23 12:04 11/21/23 09:29
Intake & Output
11/19/23 11/20/23 11/21/23 11/22/23
06:59 06:59 06:59 06:59
Intake Total 1093.4 / 1093.4 1081.2 / 1081.2 825 / 825 240 / 240
Output Total 630 / 630 70 / 70
Balance 463.4 / 463.4 1011.2 / 1011.2 825 / 825 240 / 240
Physical Exam
Physical Exam
General: Well developed, well nourished in NAD.
Neck: Supple, no JVD, HJR, carotids +2 B/L, no bruits bilaterally.
Heart: Non displaced PMI, RRR, no murmurs, No S3, S4, no rubs.
Lungs: Scattered rhonchi
Sternal dressings noted
Extremities: No clubbing, cyanosis or edema bilaterally.
Neuro: Grossly nonfocal, awake, alert and oriented x3.
--- NOTE | 2023-11-21 15:58 | PTCARENOTE ---
VS obtained, assessment stable. Patient resting oob, at bedside.
[2023-11-21 17:18] LABS: Glucose - Point of Care 143 mg/dl (70-99)
[2023-11-21 22:32] LABS: Glucose - Point of Care 153 mg/dl (70-99)
[2023-11-22 02:30] VITALS: BP 112/71
--- NOTE | 2023-11-22 03:32 | PTCARENOTE ---
Assumed care of pt from prev nsg shift, AAOx3, w/no c/o pain or SOB. NSR via telemetry monitoring. VS stable w/HR in the 70's-80's. Pt primarily Tamil speaking, able to make needs known. All procedural sites stable. Patient updated to plan of care,
in agreement. See work list for full assessment and interventions performed.
[2023-11-22] MEDS: TYLENOL 1000 MG PO (06:23)
[2023-11-22 07:00] VITALS: BP 139/69
--- NOTE | 2023-11-22 07:03 | W.PN.CT ---
Today's Communication / Plan
-
Plan:
-No major issues overnight. Neurologically and hemodynamically intact
-Off all drips
-Cont. current meds (ASA, Plavix, Amiodarone, Toprol XL, Lipitor)
-Cardiology recommending home on Plavix and DOAC/NOAC given preop A-fib. Of note pt received LAAE and has not had any a-fib postop
-No temporary PW
-Encourage use of IS
-OOB into chair/Ambulate
-Home today
Assessment / Plan
-
Assessment:
-S/P CABG x 2 (MOISE-LAD, SVG-OM)/Encompass MAZE, ELAA (35 mm Atriclip) by Dr. Barbour, 11/17/23, pod#5
-Presented with headache, dizziness/?TIA
-Paroxysmal atrial fibrillation w/ RVR
-NSTEMI, peak Troponin 5.47
-CAD with Circ/OM lesions and iFR positive ostial and mid LAD lesions by cath 11/15/23
-NSVT
-HTN
-DM2 (AIC 6.7)
-HLD
-S/P lumbar spine surgery
-Acute postop blood loss/Anemia (transfused 1u PRBC)
-Acute postop atelectasis
-Acute postop hypovolemia with subsequent hypervolemia
-Acute postop tachycardia/hypotension
Discussed patient care with: Cardiology, Nursing, Respiratory Therapy, Pharmacy and Care Team
Subjective
Procedure
CABG x 2 (MOISE-LAD, SVG-OM)/Encompass MAZE, ELAA (35 mm Atriclip) by Dr. Barbour, 11/17/23
-
Date of Service: November 22, 2023
Pt c/o mild incisional pain, otherwise feels well
Objective Data
-
Lab Results
11/21/23 03:47
06/11/24 03:47
PT 16.1 Sec (11.4-14.6) H 11/18/23 03:18
INR 1.28 11/18/23 03:18
APTT 37.7 Sec (23.4-35.0) H 11/17/23 12:48
Vital Signs
Vital Signs
Temp Pulse Resp BP Pulse Ox
98.2 F 82 20 139/69 100
11/22/23 07:01 11/22/23 07:00 11/22/23 07:01 11/22/23 07:00 11/22/23 07:01
CT Intake/Output/Weight
11/21/23 11/22/23 11/22/23
18:59 06:59 18:59
Intake Total 480 / 840 360 / 840
Balance 480 / 840 360 / 840
SaO2: 100 (RA)
Physical Exam
-
General: Awake, Oriented and AOx3
Cardiovascular: Regular rate & rhythm
Respiratory: Clear
Sternum: Stable
Incision: Clean, Dry, Intact and Dressing Intact
Extremities: No Edema
Data Reviewed
-
Lab Results: Results Reviewed
Medications: Active Meds Reviewed
Chest X-Ray: Report Reviewed and Image Reviewed
ECG: Report Reviewed and Image Reviewed
[2023-11-22] MEDS: PACERONE 400 MG PO (07:18)
[2023-11-22] MEDS: MAGNESIUM OXIDE 500 MG PO (07:18)
[2023-11-22] MEDS: PLAVIX 75 MG PO (07:18)
[2023-11-22] MEDS: TOPROL XL 12.5 MG PO (07:19)
[2023-11-22] MEDS: SENOKOT-S 1 TABLET PO (07:19)
[2023-11-22] MEDS: PROTONIX 40 MG PO (07:19)
[2023-11-22] MEDS: LIPITOR 40 MG PO (07:19)
[2023-11-22] MEDS: LOW STRENGTH ASPIRIN 81 MG PO (07:19)
[2023-11-22] MEDS: NEURONTIN 100 MG PO (07:19)
[2023-11-22 07:44] LABS: Glucose - Point of Care 123 mg/dl (70-99)
[2023-11-22] MEDS: NOVOLOG FLEXPEN-MODERATE RESISTANCE SC (07:49)
--- NOTE | 2023-11-22 08:05 | W.PN.CARDCBS ---
Addendum entered and electronically signed by Rusty Upton MD 11/22/23 13:13:
I saw and examined the patient.
The I O Psychologist's note was reviewed and I agree with the note.
Comment: Briefly, 78-year-old man presenting with atrial fibrillation with rapid ventricular response and found to have rise and fall in his troponin consistent with NSTEMI
Underwent left heart catheterization which revealed significant two-vessel coronary disease and subsequently had surgical revascularization CABG x 2, maze and left atrial appendage clip on 11/17/2023
Currently asymptomatic from a cardiovascular perspective and walking the hallways
Maintaining sinus rhythm on telemetry
Planned for discharge later today on aspirin/Plavix, high intensity statin, metoprolol and amiodarone
In the event of recurrent A-fib would consider initiating anticoagulation, preferably Eliquis/Plavix
Original Note:
Today's Communication / Plan
-
Continue post op care
Likely for d/c today
EP recommending anticoagulation w/ Eliquis and plavix
Follow up arranged
Impression / Plan
-
Head Housekeeper: None prior to admission, initially seen by Dr. JOSIANE Min
Impression:
s/p CABG x 2 MOISE-LAD; SVG-OM. Encompass MAZE, BRENDA #35mm clip on 11/17/[address] Jaylan Barbour
Presented with headache, dizziness
Paroxysmal atrial fibrillation w/ RVR�converted to sinus rhythm
NSTEMI, peak Troponin 5.47
CAD with Circ/OM lesions and iFR positive ostial and mid LAD lesions by cath 11/15/23
NSVT
HTN
DM2
HLD
Echo 11/13/2023: EF 50 to 55%, normal RV, mild MR, mild aortic insufficiency, mild TR with PAP 32 mmHg
Post CABG ALEXYS 11/17/23: EF 60-65%
Plan:
-Presented w/ headache, dizziness. In rapid Afib on arrival which was a new diagnosis.
-Trop peaked at 5.47, s/p CABG x2 11/17/2023. Doing well post op, plan is for discharge today.
-Remains in SR on review of telemetry. HR stable. Continue amiodarone and Toprol.
-Patient does have BRENDA clip, however EP recommending anticoagulation w/ OAC. Plan for Plavix and Eliquis in setting of ACS on presentation.
-Continue Lipitor 40mg daily
-Follow up arranged
HPI: Patient is a 78 year old male with PMH of hypertension, hyperlipidemia, and DM2 who presented to [facility] for evaluation of headache and dizziness. He has been in his normal state of health, but shortly after he woke up this morning, he started to
feel off balance and noticed a headache which is atypical for him. He recently moved from [facility] and is living w/ family. While in [facility], he followed w/ cardiology, however denies history of coronary disease or atrial fibrillation. He reportedly has
been told that he has occasional 'skipped beats,' but further details are unclear. He has not yet established cardiology care locally. On arrival to ER, he was noted to be in rapid atrial fibrillation w/ associated hypotension. He spontaneously
converted to SR after being given a bolus of IV cardizem. He remains in SR currently, however on review of telemetry did have a 12 beat run of NSVT. With this, he was asymptomatic. Labwork returned with initial troponin of 0.022, which trended up to
2.05 on repeat. He remains chest pain free currently and has no acute complaints. Head CT was without abnormality. Cardiology consulted for evaluation.
Progress Note - Head Housekeeper
Subjective
Date of Service: November 22, 2023
No complaints overnight.
Objective
Labs:
11/21/23 03:47
11/21/23 03:47
Labs
Hgb 10.3 g/dL (13.0-18.0) L 11/21/23 03:47
Hct 29.4 % (39.0-52.0) L 11/21/23 03:47
Plt Count 147 10^3/uL (130-400) D 11/21/23 03:47
PT 16.1 Sec (11.4-14.6) H 11/18/23 03:18
INR 1.28 11/18/23 03:18
APTT 37.7 Sec (23.4-35.0) H 11/17/23 12:48
Sodium 134 mmol/L (135-145) L 11/21/23 03:47
Potassium 4.2 mmol/L (3.5-5.1) 11/21/23 03:47
BUN 17 mg/dl (9-20) 11/21/23 03:47
Creatinine 0.6 mg/dL (0.7-1.3) L 11/21/23 03:47
Glucose 123 mg/dl (70-99) H 11/21/23 03:47
Vital Signs and I&O:
Vital Signs
Temp Pulse Resp BP Pulse Ox
98.2 F 79 20 139/69 100
11/22/23 07:01 11/22/23 07:18 11/22/23 07:01 11/22/23 07:18 11/22/23 07:30
Vital Signs
Temp Pulse Resp BP Pulse Ox
98.2 F 79 20 139/69 100
11/22/23 07:01 11/22/23 07:18 11/22/23 07:01 11/22/23 07:18 11/22/23 07:30
Intake & Output
11/20/23 11/21/23 11/22/23 11/23/23
06:59 06:59 06:59 06:59
Intake Total 1081.2 / 1081.2 825 / 825 840 / 840
Output Total 70 / 70
Balance 1011.2 / 1011.2 825 / 825 840 / 840
Physical Exam
Physical Exam
GEN: No distress, awake, alert, oriented x3
HEENT: supple, anicteric, mmm
LUNGS: CTA b/l, no wheezes/rales
CV: Reg, S1/S2, no murmur
EXT: No clubbing, cyanosis, or edema
NEURO: Gross non-focal
SKIN: Warm, dry, no rash
[2023-11-22] MEDS: LIDOCAINE 4% PATCH TOPICAL (08:29)
--- NOTE | 2023-11-22 08:30 | PTCARENOTE ---
Assumed care of pt at 0645. AAOx3. Primarily Tamil speaking but able to make needs known. NSR on cardiac tech, HRs 70s. VSS. Midsternal Aquacel CDI. CT sites PIT SHOVELER. Pt denies any pain at this time. Assessment documented. Pt in bed, call pandya within
reach. Plan for discharge home today.
--- NOTE | 2023-11-22 10:09 | PTCARENOTE ---
Midsternal Aquacel dressing removed. R AC PIV removed. L AC PIV covered. Pt to shower prior to discharge.
[2023-11-22] MEDS: NSS IV (10:10)
--- NOTE | 2023-11-22 10:30 | W.DCSUMMARY ---
Discharge Summary
Discharge Data
Date of Admission: 11/13/23
Date of Discharge: 11/22/23
-
Pending Results: No
Hospital Course
Primary care physician: none
Outpatient lathe mechanic: Gregg Min
Inpatient consultants: [facility]
Procedures:
1. Coronary artery bypass grafting, maze, and left atrial appendage clip
Primary Diagnosis:
1. NSTEMI/coronary artery disease
Secondary Diagnoses:
1. New onset paroxysmal atrial fibrillation with rapid ventricular response
2. Hypertension
3. Hyperlipidemia
4. Type 2 diabetes (A1c 6.7)
5. Spinal surgery with plating
6. Acute surgical blood loss anemia expected with transfusion requirement
HPI: 78 year old male admitted 11/12 for AF w/RVR and TIA symptoms, r/o for CVA. Ruled in for NSTEMI by troponin (max 5.47). IV Heparin initiated. Cardiac catheterization on 11/14 reported multivessel disease.
Hospital course: On 11/17/23, patient underwent CABG x 2 MOISE-LAD; SVG-OM, [facility] MAZE and BRENDA #35mm clip by Dr. Jaylan Barbour. Patient returned to the CVICU on Levophed, insulin, and Precedex. Patient received 1 packed red blood cell for
hemoglobin of 7.8. Levophed was discontinued on postoperative day #1 and bladder catheter removed. Beta-sweta was held for labile blood pressure. Blood pressure improved on postoperative day #2 and low-dose beta-sweta was started no further
atrial fibrillation was noted. Mediastinal and pleural chest tubes were discontinued. Patient continued to progress with ambulation on postoperative day #3 and 4. No further atrial fibrillation events were noted. Discussion for outpatient
anticoagulation ensued between cardiology and surgery with final decision to discharge on Plavix and Eliquis. Home metformin was discontinued on discharge as patient did not receive in hospital as sugars were well-controlled, and per daughter, this
was a medication that was prescribed in [place]. On 11/21, vital signs remained stable and patient was deemed ready for discharge to home.
Home medication changes:
Stop Metformin and Olmesartan
Stop aspirin> Plavix/ Eliquis on discharge
Atorvastatin dose increase to high intensity dose of 40mg daily
Discharge Plan
-
Patient Disposition: Home (Routine Discharge)
Discharge Diagnosis/Procedures: CABG/[facility] MAZE/BRENDA clip
Condition: Good
Diet: Low Cholesterol and Low Sodium
Activity: No strenuous activity
Driving Restrictions: Not until seen by your Dr
Bathing Restrictions: OK to Shower
Other Services: Cardiac Rehab
Specialty Instructions: Weigh Daily- Call MD for wt gain/loss 3 lbs overnight/5 lbs in 1 week
Stand Alone Forms: DC Instructions- Cath/EP Lab
Referrals:
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 F/u NSG or Ortho spine outpatient)
CT Transitional Care Nurse [Outside] (The Cardiothoracic Transitional Care Nurse will call you to set up a visit in 1-2 days.)
[facility] [Outside] - 12/29/23 9:30 am
(Cardiac Rehab Orientation and First Exercise appointment is on December 29, 2023 at 9:30 AM.
The Cardiac Rehab gym is located on the first floor of the [facility].)
Katie Zamudio PA-C [Specified Professional Personl] - 01/09/24 1:20 pm
NONE,* [Family Provider] -
Jaylan Barbour MD [Active] - 12/19/23 2:30 pm
Prescriptions:
New
atorvastatin 40 mg Tablet
40 mg PO DAILY Qty: 30 1RF
acetaminophen 325 mg Tablet
650 mg PO Q4HPRN PRN (Reason: mild pain,headache,temp >101F ) Qty: 0 0RF
pantoprazole 40 mg Tablet,Delayed Release (Dr/Ec)
40 mg PO DAILY Qty: 30 1RF
clopidogrel 75 mg Tablet
75 mg PO DAILY Qty: 30 1RF
gabapentin 100 mg Capsule
100 mg PO TID Qty: 30 0RF
amiodarone 200 mg tablet
200 mg PO BID Qty: 60 1RF
Rx Instructions:
200mmg BID x 14 days, then 200mg daily
metoprolol succinate [Toprol XL] 25 mg tablet extended release 24 hr
25 mg PO DAILY Qty: 30 1RF
oxycodone 5 mg Tablet
5 mg PO Q6HPRN PRN (Reason: severe pain) Qty: 20 0RF
Eliquis 5 mg tablet
5 mg PO BID Qty: 60 1RF
Discontinued
metformin 500 mg Tablet
125 mg PO BID
atorvastatin 10 mg Tablet
10 mg PO DAILY
aspirin 81 mg Tablet,Delayed Release (Dr/Ec)
75 mg PO DAILY
levocarnitine 500 mg Tablet
500 mg PO DAILY
olmesartan 20 mg Tablet
20 mg PO DAILY
Discharge Orders:
Discharge Patient (As Directed); Ordered 11/22/23
Ordered By: Julita Torres
Care Plan Goals
Care Plan Goals:
Problem: Readiness for enhanced knowledge related to diagnosis and treatment plan
Goal: Understand your diagnosis and treatment plan needs, including medications if applicable.
Instructions: Know your diagnosis, underlying causes and treatment plan options, including medications if applicable. Consult with your health care team to learn about your diagnosis and treatment plan, including medications if applicable.
Discharge Date and Time
Print Language: [place]
[2023-11-22 10:57] VITALS: BP 91/53
== END 2023-11-22 11:44 | disposition home or self-care (01) | DRG 234 ==
LOC: IVU 15:07
PROVIDERS: Anesthesiology; Emergency Medicine; Internal Medicine Interventional Cardiology; Nurse Practitioner; Physician Assistant; Physician Assistant Medical; Physician Assistant Surgical; ADMITTING PHYSICIAN Internal Medicine; ATTENDING PHYSICIAN Thoracic Surgery (Cardiothoracic Vascular Surgery); CONSULT PHYSICIAN Internal Medicine Cardiovascular Disease; CONSULT PHYSICIAN Internal Medicine Critical Care Medicine; EMERGENCY PHYSICIAN Emergency Medicine; OTHER PHYSICIAN Student in an Organized Health Care Education/Training Program
PROC: 4A033BC Measurement of Arterial Pressure, Coronary, Percutaneous Approach (ICD-10-PCS; 2023-11-15)
PROC: B2151ZZ Fluoroscopy of Left Heart using Low Osmolar Contrast (ICD-10-PCS; 2023-11-15)
PROC: B2111ZZ Fluoroscopy of Multiple Coronary Arteries using Low Osmolar Contrast (ICD-10-PCS; 2023-11-15)
PROC: 4A023N7 Measurement of Cardiac Sampling and Pressure, Left Heart, Percutaneous Approach (ICD-10-PCS; 2023-11-15)
PROC: 02L70CK Occlusion of Left Atrial Appendage with Extraluminal Device, Open Approach (ICD-10-PCS; 2023-11-17)
PROC: 06BQ4ZZ Excision of Left Saphenous Vein, Percutaneous Endoscopic Approach (ICD-10-PCS; 2023-11-17)
PROC: 30233N1 Transfusion of Nonautologous Red Blood Cells into Peripheral Vein, Percutaneous Approach (ICD-10-PCS; 2023-11-17)
PROC: 02580ZZ Destruction of Conduction Mechanism, Open Approach (ICD-10-PCS; 2023-11-17)
PROC: 5A1221Z Performance of Cardiac Output, Continuous (ICD-10-PCS; 2023-11-17)
PROC: B24BZZ4 Ultrasonography of Heart with Aorta, Transesophageal (ICD-10-PCS; 2023-11-17)
PROC: 021009W Bypass Coronary Artery, One Artery from Aorta with Autologous Venous Tissue, Open Approach (ICD-10-PCS; 2023-11-17)
PROC: 02100ZC Bypass Coronary Artery, One Artery from Thoracic Artery, Open Approach (ICD-10-PCS; 2023-11-17)
DX: I21.4 Non-ST elevation (NSTEMI) myocardial infarction (principal); D62 Acute posthemorrhagic anemia; J98.11 Atelectasis; G95.20 Unspecified cord compression; I47.20 Ventricular tachycardia, unspecified; I48.0 Paroxysmal atrial fibrillation; E78.00 Pure hypercholesterolemia, unspecified; E11.9 Type 2 diabetes mellitus without complications; I77.1 Stricture of artery; I95.9 Hypotension, unspecified; I10 Essential (primary) hypertension; I25.10 Atherosclerotic heart disease of native coronary artery without angina pectoris; E86.1 Hypovolemia; E87.70 Fluid overload, unspecified; D69.59 Other secondary thrombocytopenia; Z79.82 Long term (current) use of aspirin; Z79.84 Long term (current) use of oral hypoglycemic drugs; Z79.899 Other long term (current) drug therapy
CPT/HCPCS: 33259; 36600; 70450; 70544; 70548; 70551; 71045; 71046; 71250; 80048; 80053; 80061; 81003; 81015; 82248; 82330; 82565; 82805; 82947; 82962; 83036; 83735; 84132; 84302; 84439; 84443; 84484; 84520; 85014; 85018; 85025; 85027; 85049; 85347; 85610; 85730; 86850; 86900; 86901; 86920; 93005; 93306; 93312; 93320; 93325; 93458; 93571; 94002; 96361; 96374; 99152; 99153; 99291; A9585; C1769; C1894; P9016; P9045; P9047; Q9967

== ENCOUNTER 2024-01-10 15:07 | Outpatient (RCR) | payer OTHER, SELFPAY ==
[2023-12-29 11:18] LABS: Glucose - Point of Care 197 mg/dl (70-99)
[2023-12-29 11:58] LABS: Glucose - Point of Care 150 mg/dl (70-99)
[2024-01-01 14:55] LABS: Glucose - Point of Care 108 mg/dl (70-99)
[2024-01-01 15:40] LABS: Glucose - Point of Care 129 mg/dl (70-99)
[2024-01-03 14:35] LABS: Glucose - Point of Care 147 mg/dl (70-99)
[2024-01-03 15:21] LABS: Glucose - Point of Care 97 mg/dl (70-99)
[2024-01-05 14:59] LABS: Glucose - Point of Care 145 mg/dl (70-99)
[2024-01-05 15:42] LABS: Glucose - Point of Care 95 mg/dl (70-99)
[2024-01-08 14:52] LABS: Glucose - Point of Care 122 mg/dl (70-99)
[2024-01-08 15:38] LABS: Glucose - Point of Care 84 mg/dl (70-99)
[2024-01-10 14:51] LABS: Glucose - Point of Care 196 mg/dl (70-99)
[2024-01-10 15:41] LABS: Glucose - Point of Care 122 mg/dl (70-99)
== END 2024-01-10 23:59 | disposition home or self-care (01) ==
LOC: CRHB 15:07
PROVIDERS: ATTENDING PHYSICIAN Internal Medicine Cardiovascular Disease
DX: I25.10 Atherosclerotic heart disease of native coronary artery without angina pectoris (principal); Z95.1 Presence of aortocoronary bypass graft; I25.2 Old myocardial infarction
CPT/HCPCS: 82962; G0422; G0423

== ENCOUNTER 2024-02-09 14:44 | Outpatient (RCR) | payer OTHER, SELFPAY | END 2024-02-09 23:59 | disposition home or self-care (01) | LOC: CRHB 14:44 | PROVIDERS: ATTENDING PHYSICIAN Internal Medicine Cardiovascular Disease | DX: I25.10 Atherosclerotic heart disease of native coronary artery without angina pectoris (principal); Z95.1 Presence of aortocoronary bypass graft; I25.2 Old myocardial infarction | CPT/HCPCS: G0422; G0423 ==

== ENCOUNTER 2024-03-11 16:25 | Outpatient (RCR) | payer OTHER, SELFPAY | END 2024-03-11 23:59 | disposition home or self-care (01) | LOC: CRHB 16:25 | PROVIDERS: ATTENDING PHYSICIAN Internal Medicine Cardiovascular Disease | DX: I25.10 Atherosclerotic heart disease of native coronary artery without angina pectoris (principal); Z95.1 Presence of aortocoronary bypass graft; I25.2 Old myocardial infarction | CPT/HCPCS: 93798; G0422; G0423 ==

== ENCOUNTER 2024-03-29 15:13 | Outpatient (RCR) | payer OTHER, SELFPAY | END 2024-03-29 23:59 | disposition home or self-care (01) | LOC: CRHB 15:13 | PROVIDERS: ATTENDING PHYSICIAN Internal Medicine Cardiovascular Disease | DX: I25.10 Atherosclerotic heart disease of native coronary artery without angina pectoris (principal); I25.2 Old myocardial infarction; Z95.1 Presence of aortocoronary bypass graft | CPT/HCPCS: G0422; G0423 ==